=== PATIENT | female | born 1975 | race Caucasian/White ===

== ENCOUNTER 2017-02-17 10:35 | Day surgery (SDC) | payer BC ==
[2017-02-17] MEDS ORDERED: LACTATED RINGERS 1,000 ML IV ONE ×2 (11:01→13:45)
[2017-02-17] MEDS ORDERED: SCOPOLAMINE PATCH TOP ONE (11:13)
[2017-02-17] MEDS ORDERED: BUPIVACAINE 0.5% PF 30 ML VIAL SUBQ ONE (11:39)
[2017-02-17] MEDS ORDERED: LIDOCAINE-MPF 2% 5 ML VIAL IM ONE (12:20)
[2017-02-17] MEDS ORDERED: ONDANSETRON 4 MG/2 ML VIAL IVP ONE (12:20)
[2017-02-17] MEDS ORDERED: fentaNYL 100 MCG/2 ML VIAL IVP ONE (12:20)
[2017-02-17] MEDS ORDERED: PROPOFOL 200 MG/20 ML VIAL IVP ONE (12:20)
[2017-02-17] MEDS ORDERED: MIDAZOLAM 2 MG/2 ML VIAL IVP ONE (12:20)
[2017-02-17] MEDS ORDERED: ROCURONIUM 50 MG/5 ML VIAL IVP ONE (12:20)
[2017-02-17] MEDS ORDERED: KETOROLAC 30 MG/ML VIAL IVP ONE (12:20)
[2017-02-17] MEDS ORDERED: DEXAMETHASONE 4 MG/ML VIAL IVP ONE (12:20)
--- NOTE | 2017-02-17 13:32 | OPERATIVE REPORT ---
Operative Report - General Procedure Date: 02/17/17 Planned Procedure: Laparoscopic cholecystectomy Pre-Op Diagnosis: Bilaiary colic Procedure Performed: Laparoscopic cholecystectomy and umbilical herniorrhaphy Post Op Diagnosis: Same - Procedure Note Primary Surgeon: Puneet Diaz MD Anesthesia Provider: China Villarreal Anesthesia Technique: General ET tube, Local (30 mL 1/2% Marcaine) IV Fluids (mL): 900 Estimated Blood Loss (mL): 5 Complications: None. - Other Other Information/Narrative: OPERATIVE DESCRIPTION/REPORT: After verbal and written informed consent was obtained detailing the risks of infection, bleeding with all of its risks including transfusion, common bile duct injury, and the patient was brought to the operative suite and placed in the supine position on the operating room table. Monitoring devices were applied along with TEDs and pneumatic compressive stockings. Care was taken to avoid pressure points. Prophylactic antibiotics were given. An adequate level of general endotracheal anesthesia was established by China Villarreal. The abdomen was then prepped with ChloraPrep and draped in a sterile fashion. A "time in" then confirmed that the patient was identified with 3 identifiers (name, date and medical record number), the history and physical was in the chart, the signed consent confirming the procedure was in the chart, the patient was in the correct position, the aforementioned prophylactic measures were in place or given, we had the correct personnel and equipment to complete the procedure and that anesthesia, surgery and nursing were given an opportunity to express any concerns. The initial incision was at the umbilicus tracing the previous incision and dissection to a small umbilical hernia was completed using blunt dissection. The hernia was used to gain access into the abdomen. In this location, a 12 mm blunt tipped, balloon tipped port was placed and the balloon was inflated to keep the port in position. The abdominal cavity was insufflated with carbon dioxide to steady-state pressure of 15 mmHg. Three additional 5 mm ports were placed in standard location for laparoscopic cholecystectomy (subxiphoid and 2 right subcostal) under direct vision of the 30 degree laparoscope and without incident. The patient was then placed in reverse Trendelenburg position and was rotated slightly to their left. The gallbladder fundus was grasped with an atraumatic grasper. Multiple adhesions had to be taken down by blunt and sharp dissection along with electrocautery. Eventually, we identified the infundibulum, and this was then grasped and retracted inferior and laterally. Dissection was then begun in the angle of [place]. The cystic duct and (slightly medially and posteriorly) cystic artery were clearly identified. The critical view was obtained. Two clips proximally and one clip distally were used to control both the cystic duct and cystic artery. The clips were carefully placed to avoid occluding the juncture with the common bile duct. Both the cystic duct and then the cystic artery were then transected with laparoscopic tyshawn. The gallbladder was then removed from its fossa in a retrograde fashion using electrocautery. With the 30 degree 5 mm scope in the subxiphoid position, the gallbladder was placed in an EndoCatch bag to be extracted through the 12 mm port site. I irrigated the right upper quadrant with a liter of warm sterile saline, and the area was aspirated dry. I inspected the gallbladder fossa and there was no bleeding or bile leak. Clips on the cystic duct and cystic artery appeared to be secure. I briefly visually explored the abdomen. There was no other evidence of overt pathology. I injected the port sites at the peritoneal, fascial, and skin levels under direct vision with 0.5% Marcaine. All ports and the EndoCatch containing the gallbladder were removed. Following gallbladder removal, the remaining carbon dioxide was expelled from the abdomen. The fascia at the umbilicus was reapproximated using 2 [id number] 0 Vicryl sutures thus repairing the umbilical hernia. The skin at each port site was approximated using a subcuticular 4-0 Monocryl. The surgical count of instruments, needles and sponges was reported as correct twice. Mastisol, Steri -Strips and sterile surgical dressings were applied. The patient was then awakened from anesthesia, extubated, and having tolerated the procedure well, was transported to the recovery room. No complications were encountered. A "time out" confirmed the operation performed, the fluids given, the estimated blood loss and anesthesia, surgery and nursing were given an opportunity to express any concerns.
[2017-02-17] MEDS: fentaNYL 100 MCG/2 ML VIAL ONE ×2 (13:47→13:53)
[2017-02-17] MEDS ORDERED: HYDROcod/ACETAM 5/325 MG TABLET ONE (14:33)
[2017-02-17 14:57] VITALS: BP 124/78
== END 2017-02-17 10:36 | disposition home or self-care (01) ==
LOC: SDS 10:35
PROVIDERS: ATTEND Surgery
PROC: 0WQF0ZZ Repair Abdominal Wall, Open Approach (ICD-10-PCS; 2017-02-17)
PROC: 0FT44ZZ Resection of Gallbladder, Percutaneous Endoscopic Approach (ICD-10-PCS; principal; 2017-02-17 11:30)
DX: K80.20 Calculus of gallbladder without cholecystitis without obstruction (principal); K42.9 Umbilical hernia without obstruction or gangrene; J45.909 Unspecified asthma, uncomplicated; Z87.891 Personal history of nicotine dependence
CPT/HCPCS: 47562; 49585; A9270; J3490; J7120

== ENCOUNTER 2017-07-19 13:06 | Emergency (ER) | payer BC ==
[2017-07-19] MEDS ORDERED: SODIUM CHLORIDE 0.9% 1,000 ML IV ONE (14:18)
[2017-07-19] MEDS ORDERED: BENZONATATE 100 MG CAPSULE PO STA (14:19)
--- NOTE | 2017-07-19 14:25 | ED Physician Documentation ---
History of Present Illness - Stated complaint Stated Complaint: COUGH/DIARRHEA - Chief complaint Chief Complaint: Resp - History obtained from History obtained from: Patient - History of Present Illness Timing: How many days ago (9) Pain level max: 3 Pain level now: 3 Quality: aching, pain with cough. Cramping in abdomen. Improved by: rest Worsened by: exertion - Additonal information Additional information: Patient is a 42-year-old female who presents to the emergency department with rhinorrhea, congestion and coughing for the past 9 days. She states that she had some diarrhea then started taking a old Augmentin prescription and has had increasing diarrhea since that time. States she is still coughing. No fevers. Review of Systems Ten Systems: 10 systems reviewed and negative Constitutional: denies: Fever, Chills Nose: reports: Rhinorrhea / runny nose, Congestion Respiratory: reports: Cough GI: reports: Diarrhea (4-5 times per day.). denies: Vomiting : denies: Dysuria, Now EGA Skin: denies: Rash Musculoskeletal: denies: Neck pain, Back pain Neurologic: denies: Headache PD PAST MEDICAL HISTORY - Past Medical History Cardiovascular: None Respiratory: Asthma Endocrine/Autoimmune: None GI: GERD, Ulcers : None HEENT: Other Psych: Anxiety, Panic attacks, Claustrophobia Musculoskeletal: None Derm: None - Past Surgical History Past Surgical History: Yes Ortho: Arthroscopic surgery /RN L AND D: 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, Tubal ligation, Breast implants Derm: Other - Present Medications Home Medications: Ambulatory Orders Medication Instructions Recorded Confirmed Albuterol [Ventolin Hfa] 2 puffs INH Q4H PRN 04/19/13 02/17/17 Prochlorperazine [Compazine] 10 mg PO BID 02/13/17 02/17/17 Amoxicillin/Potassium Clav [Amox 1 each PO TID 07/19/17 07/19/17 Tr-K Clv 875-125 mg Tab] Benzonatate [Tessalon Perle] 100 - 200 mg PO TID PRN #30 capsule 07/19/17 Hydrocodone/Chlorphen P-Stirex 5 ml PO BID PRN #90 ml 07/19/17 [Hydrocodone-Chlorphen ER Susp] Ondansetron Odt [Zofran] 4 mg TL Q6H PRN #10 tablet 07/19/17 - Allergies Allergies/Adverse Reactions: Allergies Allergy/AdvReac Type Severity Reaction Status Date / Time Antihistamines - Alkylamine Allergy Confusion, Verified 07/19/17 13:19 dizziness, nausea doxycycline Allergy Hives Verified 07/19/17 13:19 hydromorphone [From Dilaudid] Allergy Anxiety, Verified 07/19/17 13:19 Agitation - Social History Does the pt smoke?: No Smoking Status: Never smoker Does the pt drink ETOH?: No Does the pt have substance abuse?: No - Immunizations Immunizations are current?: Yes - POLST Patient has POLST: No PD ED PE NORMAL - Vitals Vital signs reviewed: Yes - General General: Alert and oriented X 3, No acute distress, Well developed/nourished - HEENT HEENT: PERRL, Ears normal, Moist mucous membranes, Pharynx benign, Other (clear rhinorrhea) - Neck Neck: Supple, no meningeal sign - Cardiac Cardiac: RRR, Strong equal pulses - Respiratory Respiratory: No respiratory distress, Clear bilaterally - Abdomen Abdomen: Soft, Non tender, Non distended - Derm Derm: Warm and dry, No rash - Neuro Neuro: Alert and oriented X 3 - Psych Psych: Normal mood, Normal affect Results - Vitals Vitals: Vital Signs - 24 hr 07/19/17 07/19/17 07/19/17 13:16 15:32 17:00 Temperature 36.9 C 36.4 C L 36.6 C Heart Rate 97 108 H 72 Respiratory 18 20 16 Rate Blood Pressure 138/108 H 138/125 H 118/74 O2 Saturation 98 100 100 Oxygen O2 Source Room air - Labs Labs: Laboratory Tests 07/19/17 07/19/17 07/19/17 14:34 14:42 14:42 WBC 7.7 RBC 4.65 Hgb 14.4 Hct 42.5 MCV 91.4 MCH 31.1 H MCHC 34.0 RDW 13.0 Plt Count 289 MPV 8.8 Neut # 4.8 Lymph # 2.0 [place] # 0.6 Eos # 0.2 Baso # 0.1 Absolute Nucleated RBC 0.01 Nucleated RBC % 0.1 Sodium 133 L Potassium 4.2 Chloride 101 Carbon Dioxide 22 Anion Gap 10.0 BUN 12 Creatinine 0.8 Estimated GFR (MDRD) 79 L Glucose 94 Calcium 9.4 Total Bilirubin 0.8 AST 23 ALT 19 Alkaline Phosphatase 57 Total Protein 8.3 H Albumin 4.6 Globulin 3.7 Albumin/Globulin Ratio 1.2 Lipase 20 L Urine Color YELLOW Urine Clarity CLEAR Urine pH 5.5 Ur Specific [place] <=1.005 Urine Protein NEGATIVE Urine Glucose (UA) NEGATIVE Urine Ketones NEGATIVE Urine Occult Blood NEGATIVE Urine Nitrite NEGATIVE Urine Bilirubin NEGATIVE Urine Urobilinogen 0.2 (NORMAL) Ur Leukocyte Esterase NEGATIVE Ur Microscopic Review NOT INDICATED Urine Culture Comments NOT INDICATED - Rads (name of study) cxr Radiology: Prelim report reviewed, EMP read contemporaneously, See rad report ( No acute intrathoracic plain film abnormality. ) PD MEDICAL DECISION MAKING - ED course Complexity details: reviewed results, re-evaluated patient, considered differential, d/w patient ED course: Patient is a 42-year-old female who presents to the emergency department what appears to be a viral upper respiratory infection. No evidence of pneumonia on chest x-ray or clinically. She is well-appearing, nontoxic. Afebrile. No hypoxia. No respiratory distress. Abdomen is soft, nontender nondistended on serial exam. Unable to provide a stool sample despite several hours in the emergency department. Doubt C. difficile diarrhea. We will continue supportive care and follow-up with her doctor. Feels better after IV fluids. Patient counseled regarding signs and symptoms for which I believe and urgent re -evaluation would be necessary. Patient with good understanding of and agreement to plan and is comfortable going home at this time This document was made in part using voice recognition software. While efforts are made to proofread this document, sound alike and grammatical errors may occur. Departure - Departure Disposition: 01 Home, Self Care Clinical Impression: Viral URI Diarrhea Qualifiers: Diarrhea type: unspecified type Qualified Code(s): R19.7 - Diarrhea, unspecified Condition: Good Instructions: ED Viral Syndrome Follow-Up: Lashell Gandhi PA [Primary Care Provider] - Within 1 week Prescriptions: Benzonatate [Tessalon Perle] 100 - 200 mg PO TID PRN #30 capsule PRN Reason: Cough Hydrocodone/Chlorphen P-Stirex [Hydrocodone-Chlorphen ER Susp] 5 ml PO BID PRN # 90 ml PRN Reason: Cough Ondansetron Odt [Zofran] 4 mg TL Q6H PRN #10 tablet PRN Reason: Nausea / Vomiting Comments: Go home and rest. Drink plenty of fluids. Return if you worsen. Do not drink alcohol or drive while on narcotic pain medicine. Note that many narcotic pain relievers also contain tylenol/acetaminophen. Please ensure that your total dose of acetaminophen from all sources does not exceed 3 grams (3000mg) per day. You may constipated on this medication, take a stool softener such as "Colace" twice a day while you are on it. Also recommend a [id number] laxative such as senna or MiraLAX any day that you do not have a bowel movement. If you received narcotic pain medication in the emergency department, do not drive or operate machinery for the next 24 hours. Discharge Date/Time: 07/19/17 17:08
[2017-07-19 14:53] LABS: BASOPHILS # (AUTO) 0.1 10^3/uL (0.0-0.1); EOSINOPHILS # (AUTO) 0.2 10^3/uL (0.0-0.7); EOSINOPHILS % (AUTO) 3.2 %; HGB - HEMOGLOBIN 14.4 g/dL (12.0-16.0); LYMPHOCYTES % (AUTO) 26.5 %; MEAN CORPUSCULAR HEMOGLOBIN 31.1 pg (27.0-31.0); MEAN CORPUSCULAR VOLUME 91.4 fL (81.0-99.0); MEAN PLATELET VOLUME 8.8 fL (7.9-10.8); MONOCYTES # (AUTO) 0.6 10^3/uL (0.0-1.0); MONOCYTES % (AUTO) 7.3 %; NEUTROPHILS # (AUTO) 4.8 10^3/uL (1.5-6.6); PLT - PLATELET COUNT 289 10^3/uL (130-450); RED BLOOD COUNT 4.65 10^6/uL (4.20-5.40); WHITE BLOOD COUNT 7.7 x10^3/uL (4.8-10.8)
[2017-07-19 14:54] LABS: BILIRUBIN,URINE NEGATIVE (NEGATIVE); CLARITY,URINE CLEAR (CLEAR); GLUCOSE, URINE (UA) NEGATIVE (NEGATIVE); KETONES,URINE (UA) NEGATIVE (NEGATIVE); LEUKOCYTE ESTERASE, URINE NEGATIVE (NEGATIVE); NITRITE,URINE NEGATIVE (NEGATIVE); OCCULT BLOOD,URINE NEGATIVE (NEGATIVE); PH,URINE 5.5 PH (5.0-7.5); PROTEIN,URINE NEGATIVE (NEGATIVE); UROBILINOGEN,URINE 0.2 (NORMAL) E.U./dL (NORMAL)
[2017-07-19 15:04] LABS: ALBUMIN 4.6 g/dL (3.2-5.5); ALBUMIN/GLOBULIN RATIO 1.2 (1.0-2.2); BILIRUBIN,TOTAL 0.8 mg/dL (0.2-1.0); CALCIUM 9.4 mg/dL (8.5-10.3); CREATININE 0.8 mg/dL (0.4-1.0); TOTAL PROTEIN 8.3 g/dL (6.7-8.2)
--- NOTE | 2017-07-19 15:36 | XRAY Report ---
EXAM: CHEST RADIOGRAPHY EXAM DATE: 07/19/2017 03:10 PM. CLINICAL HISTORY: Cough. COMPARISON: None. TECHNIQUE: 2 views. FINDINGS: Lungs/Pleura: No focal opacities evident. No pleural effusion. No pneumothorax. Normal volumes. Mediastinum: Heart and mediastinal contours are unremarkable. Other: None. IMPRESSION: No acute intrathoracic plain film abnormality. [facility] Referring Provider Line: [phone] SITE ID: [id number]
[2017-07-19] MEDS ORDERED: HYDROcod/ACETAM 5/325 MG TABLET PO STA (15:45)
[2017-07-19] MEDS ORDERED: DEXAMETHASONE 10 MG/ML VIAL IVP STA (16:54)
[2017-07-19 17:01] VITALS: BP 118/74
--- NOTE | 2017-07-21 05:49 | ED Physician Documentation ---
ED Addendum - Addendum Addendum: 07/21/17 05:30 Patient called ED morning of 07/20/17 regarding prescribed medication. I spoke with her and she says that she has had hives and she describes feeling jittery and jumpy since taking the hydrocodone/chlorpheniramine; she says this is typical for her with antihistamines. She says her chief concern is controlling the cough, and that robitussin with codeine has worked well for her in the past. I wrote this rx for her and her subsequently picked it up. She also is having nausea and asks for compazine, as this has worked on her nausea in the past. I also wrote rx for Compazine
== END 2017-07-19 17:08 | disposition home or self-care (01) ==
LOC: ED 13:06
DX: J06.9 Acute upper respiratory infection, unspecified (principal); B97.89 Other viral agents as the cause of diseases classified elsewhere; R19.7 Diarrhea, unspecified; J45.909 Unspecified asthma, uncomplicated; K21.9 Gastro-esophageal reflux disease without esophagitis; Z87.11 Personal history of peptic ulcer disease
CPT/HCPCS: 36415; 71046; 80053; 81003; 83690; 85025; 96361; 96374; 99283; A9270; 81001; 87086

== ENCOUNTER 2018-09-27 20:52 | Emergency (ER) | payer BC ==
[2018-09-27 21:13] LABS: BASOPHILS # (AUTO) 0.1 10^3/uL (0.0-0.1); BASOPHILS % (AUTO) 0.7 %; EOSINOPHILS # (AUTO) 0.2 10^3/uL (0.0-0.7); EOSINOPHILS % (AUTO) 1.5 %; HGB - HEMOGLOBIN 14.1 g/dL (12.0-16.0); LYMPHOCYTES # (AUTO) 2.5 10^3/uL (1.5-3.5); LYMPHOCYTES % (AUTO) 23.9 %; MEAN CORPUSCULAR HEMOGLOBIN 31.7 pg (27.0-31.0); MEAN CORPUSCULAR HGB CONC 33.9 g/dL (32.0-36.0); MEAN CORPUSCULAR VOLUME 93.5 fL (81.0-99.0); MEAN PLATELET VOLUME 10.7 fL (7.9-10.8); MONOCYTES # (AUTO) 0.9 10^3/uL (0.0-1.0); MONOCYTES % (AUTO) 8.4 %; NEUTROPHILS # (AUTO) 6.8 10^3/uL (1.5-6.6); NEUTROPHILS % (AUTO) 64.9 %; PLT - PLATELET COUNT 296 10^3/uL (130-450); RED BLOOD COUNT 4.45 10^6/uL (4.20-5.40); RED CELL DISTRIBUTION WIDTH 13.6 % (12.0-15.0); WHITE BLOOD COUNT 10.4 x10^3/uL (4.8-10.8)
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
[2018-09-27 21:27] LABS: ALBUMIN 4.5 g/dL (3.2-5.5); ALBUMIN/GLOBULIN RATIO 1.2 (1.0-2.2); BILIRUBIN,TOTAL 0.7 mg/dL (0.2-1.0); CALCIUM 9.5 mg/dL (8.5-10.3); CREATININE 0.8 mg/dL (0.4-1.0); TOTAL PROTEIN 8.4 g/dL (6.7-8.2)
[2018-09-27 21:41] LABS: HCG UR QUAL NEGATIVE
[2018-09-27 22:10] LABS: MUDS CUTOFF CONCENTRATIONS CUTOFF CONC BELOW:
--- NOTE | 2018-09-27 22:30 | CT Report ---
Reason: LOPES, weakness Procedure Date: 09/27/2018 Accession Number: [id number] / [id number] Procedure: CT - HEAD WO CPT Code: FULL RESULT: EXAM: CT HEAD EXAM DATE: 09/27/2018 10:17 PM. CLINICAL HISTORY: LOPES, weakness. COMPARISON: HEAD W/O 04/19/2013 9:48 PM. TECHNIQUE: Multiaxial CT images were obtained from the foramen magnum to the vertex. Reformats: Sagittal and coronal. IV contrast: None. In accordance with CT protocol optimization, one or more of the following dose reduction techniques were utilized for this exam: automated exposure control, adjustment of mA and/or KV based on patient size, or use of iterative reconstructive technique. FINDINGS: There is mild streak artifact from metallic earrings on the left. Parenchyma: No intraparenchymal hemorrhage. No evidence of mass, midline shift, or CT findings of infarction. Lewis-white differentiation is distinct. Extraaxial Spaces: Normal for age. No subdural or epidural collections identified. Ventricles: Normal in size and position, stable compared to the prior examination. Sinuses and Orbits: Imaged paranasal sinuses, orbits, and mastoids show no significant abnormality. Bones: No evidence of fracture or calvarial defect. Other: None. IMPRESSION: 1. No evidence of acute intracranial pathology. No significant interval change. [facility]
[2018-09-27 22:48] LABS: AMPHETAMINE SCREEN,URINE NEGATIVE (NEGATIVE); BENZODIAZEPINES SCREEN, URINE NEGATIVE (NEGATIVE); COCAINE SCREEN URINE NEGATIVE (NEGATIVE); METHADONE SCREEN, URINE NEGATIVE (NEGATIVE); METHAMPHETAMINES SCREEN, URINE NEGATIVE (NEGATIVE); OPIATE SCREEN, URINE NEGATIVE (NEGATIVE); OXYCODONE SCREEN, URINE NEGATIVE (NEGATIVE); PROPOXYPHENE SCREEN, URINE NEGATIVE (NEGATIVE); TRICYCLIC ANTIDEPRESSANT,URINE NEGATIVE (NEGATIVE)
[2018-09-27 23:09] VITALS: BP 106/68
== END 2018-09-27 23:40 | disposition home or self-care (01) ==
LOC: ED 20:52
DX: R41.82 Altered mental status, unspecified (principal)
CPT/HCPCS: 36415; 70450; 80053; 80306; 81025; 83690; 84443; 85025; 85651; 93005; 99283; 99284

== ENCOUNTER 2019-04-03 17:37 | Emergency (ER) | payer BC ==
[2019-04-03] MEDS ORDERED: SODIUM CHLORIDE 0.9% 1,000 ML IV ONE ×2 (18:02)
[2019-04-03] MEDS ORDERED: KETOROLAC 30 MG/ML VIAL IVP STA (18:03)
--- NOTE | 2019-04-03 18:07 | ED Physician Documentation ---
PD HPI ABD PAIN - Stated complaint Stated Complaint: FEMALE , NAUSEA - Chief complaint Chief Complaint: Abd Pain - History obtained from History obtained from: Patient - History of Present Illness Timing - onset: How many days ago (4) Timing - duration: Days (4) Timing - details: Gradual onset Pain level max: 8 Pain level now: 8 Quality: Aching, Pain Location: Periumbilical, RLQ, Suprapubic, LLQ Radiation: Left flank, Right flank Improved by: Other (took CBD oil without relief) Worsened by: Moving, Palpation Associated symptoms: Nausea, Vaginal bleeding (light spotting). No: Fever, Vomiting, Hematemesis, Diarrhea, Constipation, Melena, Hematochezia, Dysuria, Vaginal dc Similar symptoms before: Has not had sx before Recently seen: Not recently seen - Additional information Additional information: states had an endometrial ablation 8 years ago. Review of Systems Constitutional: denies: Fever, Chills Throat: denies: Sore throat Cardiac: denies: Chest pain / pressure Respiratory: denies: Cough GI: denies: Vomiting, Diarrhea, Hematemesis, Bloody / black stool : denies: Dysuria, Frequency, Hesitancy Skin: denies: Rash Musculoskeletal: denies: Neck pain, Back pain Neurologic: denies: Headache PD PAST MEDICAL HISTORY - Past Medical History Cardiovascular: None Respiratory: Asthma Endocrine/Autoimmune: None GI: GERD, Ulcers : None HEENT: Other Psych: Anxiety, Panic attacks, Claustrophobia Musculoskeletal: None Derm: None - Past Surgical History Past Surgical History: Yes General: Cholecystectomy Ortho: Arthroscopic surgery /[employer]: 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, Tubal ligation, Breast implants Derm: Other - Present Medications Home Medications: Ambulatory Orders Medication Instructions Recorded Confirmed Hydrocodone/Acetaminophen 1 - 2 each PO Q6H PRN #10 tablet 04/03/19 [Hydrocodon-Acetaminophen 5-325] Ibuprofen [Motrin] 800 mg PO Q8H PRN #30 tablet 04/03/19 - Allergies Allergies/Adverse Reactions: Allergies Allergy/AdvReac Type Severity Reaction Status Date / Time Antihistamines - Alkylamine Allergy Confusion, Verified 04/03/19 17:47 dizziness, nausea doxycycline Allergy Hives Verified 04/03/19 17:47 hydromorphone [From Dilaudid] Allergy Anxiety, Verified 04/03/19 17:47 Agitation - Social History Does the pt smoke?: No Smoking Status: Never smoker Does the pt drink ETOH?: No Does the pt have substance abuse?: No - Immunizations Immunizations are current?: Yes - POLST Patient has POLST: No PD ED PE NORMAL - Vitals Vital signs reviewed: Yes - General General: Alert and oriented X 3, No acute distress - HEENT HEENT: Moist mucous membranes - Neck Neck: Supple, no meningeal sign - Cardiac Cardiac: RRR - Respiratory Respiratory: No respiratory distress, Clear bilaterally - Abdomen Abdomen: Soft, Other (mild diffuse TTP, no peritoneal signs.) - Female Female : Pt declined - Derm Derm: Warm and dry, No rash - Extremities Extremities: No edema, No calf tenderness / cord - Neuro Neuro: Alert and oriented X 3 Results - Vitals Vitals: Vital Signs - 24 hr 04/03/19 04/03/19 04/03/19 17:47 18:38 20:31 Temperature 36.6 C 37.2 C 37.2 C Heart Rate 84 76 71 Respiratory 15 16 16 Rate Blood Pressure 136/88 H 130/81 H 129/80 O2 Saturation 99 100 100 Oxygen O2 Source Room air - Labs Labs: Laboratory Tests 04/03/19 04/03/19 04/03/19 18:00 18:00 18:00 WBC 8.1 RBC 4.45 Hgb 14.2 Hct 42.0 MCV 94.4 MCH 31.9 H MCHC 33.8 RDW 13.6 Plt Count 298 MPV 10.5 Neut # (Auto) 4.5 Lymph # (Auto) 2.5 [place] # (Auto) 0.7 Eos # (Auto) 0.3 Baso # (Auto) 0.1 Absolute Nucleated RBC 0.00 Nucleated RBC % 0.0 Sodium 136 Potassium 3.5 Chloride 101 Carbon Dioxide 25 Anion Gap 10.0 BUN 18 Creatinine 0.8 Estimated GFR (MDRD) 78 L Glucose 100 Calcium 9.2 Total Bilirubin 1.0 AST 24 ALT 31 Alkaline Phosphatase 74 Total Protein 7.9 Albumin 4.5 Globulin 3.4 Albumin/Globulin Ratio 1.3 Lipase 33 Urine Color YELLOW Urine Clarity CLEAR Urine pH 5.5 Ur Specific Seth 1.015 Urine Protein NEGATIVE Urine Glucose (UA) NEGATIVE Urine Ketones NEGATIVE Urine Occult Blood SMALL H Urine Nitrite NEGATIVE Urine Bilirubin NEGATIVE Urine Urobilinogen 0.2 (NORMAL) Ur Leukocyte Esterase NEGATIVE Urine RBC 0-5 Urine WBC 0-3 Ur Squamous Epith Cells FEW Squamous Urine Bacteria None Seen Ur Microscopic Review INDICATED Urine Culture Comments NOT INDICATED Urine HCG, Qual NEGATIVE - Rads (name of study) pelvic US Radiology: Prelim report reviewed, EMP read contemporaneously, See rad report (1. Multiple intramural uterine fibroids noted. 2. Heterogeneous thickened end ometrium. No focal mass or polyp. 3. Simple right ovarian follicle. Otherwise, both ovaries and adnexa are normal. 4. Arterial and venous blood flow are present to the ovaries bilaterally. ) CT abd/pelvis Radiology: Prelim report reviewed, EMP read contemporaneously, See rad report (1. No acute findings to explain patient's symptoms. 2. There are two 1 cm low-attenuation lesions within the central uterus which are adjacent to versus within the endometrium and are indeterminant. Please see pelvic ultrasound of the same date for further evaluation. 3. Status post bilateral tubal ligation. 4. Cholecystectomy. ) PD MEDICAL DECISION MAKING - ED course Complexity details: reviewed results, re-evaluated patient, considered differential, d/w patient, d/w family ED course: Patient with dysfunctional uterine bleeding and uterine fibroids. Pain well controlled. We will have her follow-up with her doctor for further care. No significant lab abnormalities. Patient counseled regarding signs and symptoms for which I believe and urgent re-evaluation would be necessary. Patient with good understanding of and agreement to plan and is comfortable going home at this time This document was made in part using voice recognition software. While efforts are made to proofread this document, sound alike and grammatical errors may occur. Departure - Departure Disposition: 01 Home, Self Care Clinical Impression: Dysfunctional uterine bleeding Uterine fibroid Qualifiers: Uterine leiomyoma location: unspecified location Qualified Code(s): D25.9 - Leiomyoma of uterus, unspecified Condition: Good Instructions: ED Cramping Menstrual, ED Fibroids Follow-Up: Lashell Gandhi PA [Primary Care Provider] - Within 1 week Prescriptions: Hydrocodone/Acetaminophen [Hydrocodon-Acetaminophen 5-325] 1 - 2 each PO Q6H PRN #10 tablet PRN Reason: pain Ibuprofen [Motrin] 800 mg PO Q8H PRN #30 tablet PRN Reason: PAIN &/OR FEVER Comments: Return if you worsen. You have fibroids on your ultrasound. these can cause pain and bleeding. Follow up with your doctor for further care. Do not drink alcohol or drive while on narcotic pain medicine. Note that many narcotic pain relievers also contain tylenol/acetaminophen. Please ensure that your total dose of acetaminophen from all sources does not exceed 3 grams (3000mg) per day. You may constipated on this medication, take a stool softener such as "Colace" twice a day while you are on it. Also recommend a [id number] laxative such as senna or MiraLAX any day that you do not have a bowel movement. If you received narcotic pain medication in the emergency department, do not drive or operate machinery for the next 24 hours.
[2019-04-03] MEDS ORDERED: IOVERSOL 320 100 ML VIAL IVP ONE ×2 (18:12→20:12)
[2019-04-03] MEDS ORDERED: ONDANSETRON 4 MG/2 ML VIAL IVP STA (18:12)
[2019-04-03 18:22] LABS: BASOPHILS # (AUTO) 0.1 10^3/uL (0.0-0.1); BASOPHILS % (AUTO) 0.7 %; EOSINOPHILS # (AUTO) 0.3 10^3/uL (0.0-0.7); EOSINOPHILS % (AUTO) 3.1 %; HGB - HEMOGLOBIN 14.2 g/dL (12.0-16.0); LYMPHOCYTES # (AUTO) 2.5 10^3/uL (1.5-3.5); LYMPHOCYTES % (AUTO) 30.5 %; MEAN CORPUSCULAR HEMOGLOBIN 31.9 pg (27.0-31.0); MEAN CORPUSCULAR HGB CONC 33.8 g/dL (32.0-36.0); MEAN CORPUSCULAR VOLUME 94.4 fL (81.0-99.0); MEAN PLATELET VOLUME 10.5 fL (7.9-10.8); MONOCYTES # (AUTO) 0.7 10^3/uL (0.0-1.0); MONOCYTES % (AUTO) 9.1 %; NEUTROPHILS # (AUTO) 4.5 10^3/uL (1.5-6.6); NEUTROPHILS % (AUTO) 56.2 %; PLT - PLATELET COUNT 298 10^3/uL (130-450); RED BLOOD COUNT 4.45 10^6/uL (4.20-5.40); RED CELL DISTRIBUTION WIDTH 13.6 % (12.0-15.0); WHITE BLOOD COUNT 8.1 x10^3/uL (4.8-10.8)
[2019-04-03 18:26] LABS: BILIRUBIN,URINE NEGATIVE (NEGATIVE); GLUCOSE, URINE (UA) NEGATIVE (NEGATIVE); KETONES,URINE (UA) NEGATIVE (NEGATIVE); LEUKOCYTE ESTERASE, URINE NEGATIVE (NEGATIVE); NITRITE,URINE NEGATIVE (NEGATIVE); OCCULT BLOOD,URINE SMALL (NEGATIVE); PH,URINE 5.5 PH (5.0-7.5); PROTEIN,URINE NEGATIVE (NEGATIVE); UROBILINOGEN,URINE 0.2 (NORMAL) E.U./dL (NORMAL)
[2019-04-03 18:29] LABS: CLARITY,URINE CLEAR (CLEAR); HCG UR QUAL NEGATIVE
[2019-04-03 18:35] LABS: ALBUMIN 4.5 g/dL (3.2-5.5); ALBUMIN/GLOBULIN RATIO 1.3 (1.0-2.2); CALCIUM 9.2 mg/dL (8.5-10.3); CREATININE 0.8 mg/dL (0.4-1.0); TOTAL PROTEIN 7.9 g/dL (6.7-8.2)
[2019-04-03 18:48] LABS: BACTERIA,URINE None Seen /HPF (None Seen); RBC,URINE 0-5 /HPF (0-5); SQUAMOUS EPITHELIAL CELL,UR FEW Squamous (<= Few)
[2019-04-03 20:32] VITALS: BP 129/80
--- NOTE | 2019-04-03 20:46 | Ultrasound Report ---
Reason: pelvic pain, diffuse, vag bleed Procedure Date: 04/03/2019 Accession Number: [id number] / [id number] Procedure: US - Pelvic w/Transvag+Doppler Comp CPT Code: Final Report FULL RESULT: EXAM: PELVIC ULTRASOUND WITH DOPPLERS CLINICAL HISTORY: Pelvic pain, diffuse, vaginal bleed. COMPARISON: ABDOMEN/PELVIS W/O 08/06/2013 1:26 PM TECHNIQUE: Realtime transabdominal imaging performed to identify the uterus and adnexa and as an overview of other pelvic structures, followed by transvaginal imaging for better assessment of the endometrium and adnexa, with static image documentation. Color flow imaging and Doppler spectral analysis was performed to evaluate blood flow to the ovaries given pelvic pain and clinical concern for ovarian torsion. FINDINGS: Uterus: 9.2 x 4.6 x 6.1 cm, volume 135.5 cc. Anteverted position. Heterogeneous myometrium with multiple fibroids noted. Masses: 1. 1 x 0.7 x 0.9 cm echogenic posterior left intramural fibroid. 2. 0.5 x 0.5 x 0.8 cm posterior left uterine intramural echogenic fibroid. Internal vascularity is noted. 3. Right fundal heterogeneous intramural 5.2 x 2.9 x 4.8 cm bilobed fibroid or two adjacent fibroids. Internal vascularity noted. Endometrium: 7.3 mm. Heterogenous mildly thickened endometrium. Poorly defined borders. Cervix: Unremarkable. Right Ovary: 3.2 x 1.7 x 1.9 cm, volume 5.9 cc. Normal echotexture. Arterial and venous blood flow are present. PSV 6.6 cm/sec. RI 0.61. Adnexa is notable for an anechoic 1 x 0.8 cm cyst. Left Ovary: 1.9 x 1.6 x 1.6 cm, volume 2.5 cc. Normal echotexture. Arterial and venous blood flow are present. PSV 28.5 cm/sec. RI 0.69. Adnexa unremarkable. Free Fluid: None. Other: None. IMPRESSION: 1. Multiple intramural uterine fibroids noted. 2. Heterogeneous thickened endometrium. No focal mass or polyp. 3. Simple right ovarian follicle. Otherwise, both ovaries and adnexa are normal. 4. Arterial and venous blood flow are present to the ovaries bilaterally. RADIA
[2019-04-03] MEDS ORDERED: HYDROcod/ACETAM 5/325 MG TABLET PO STA (20:58)
--- NOTE | 2019-04-03 21:10 | CT Report ---
Reason: diffuse abd pain Procedure Date: 04/03/2019 Accession Number: [id number] / [id number] Procedure: CT - Abdomen/Pelvis W CPT Code: Final Report FULL RESULT: EXAM: CT ABDOMEN AND PELVIS EXAM DATE: 04/03/2019 07:56 PM. CLINICAL HISTORY: Diffuse abdominal pain. Lower abdominal pain and vaginal bleeding. COMPARISONS: ABDOMEN/PELVIS W/O 08/06/2013 1:26 PM PEL NON OB W/TV DOP 04/03/2019 6:59 PM. TECHNIQUE: Routine helical CT imaging was performed through the abdomen and pelvis. IV contrast: 90 cc Optiray 320. Enteric contrast: No. Reconstructions: Coronal and sagittal. In accordance with CT protocol optimization, one or more of the following dose reduction techniques were utilized for this exam: automated exposure control, adjustment of mA and/or KV based on patient size, or use of iterative reconstructive technique. FINDINGS: Imaged chest: Status post breast augmentation, partially imaged. Liver: Unremarkable. Gallbladder: Cholecystectomy. Biliary: Unremarkable. Pancreas: Fatty atrophy. Spleen: Unremarkable. Adrenal glands: Unremarkable. Kidneys: Unremarkable. Urinary bladder: Completely decompressed and not evaluated. Reproductive organs: The uterus is normal in size. Status post bilateral tubal ligation. There are two 1 cm low-attenuation lesions within the central uterus which are adjacent to versus within the endometrium and are indeterminant. Please see pelvic ultrasound of the same date for further evaluation. Bowel: Unremarkable. Stomach: Unremarkable. Appendix: The appendix is not reliably identified, however, there are no secondary signs of acute appendicitis. Miscellaneous: No free fluid. No extraluminal gas. Aorta: No significant aortic atherosclerosis. Normal in caliber. Lymph nodes: No pathologically enlarged lymph nodes identified. Bones: No acute fracture. No suspicious osseous lesions. Sidewalls: Unremarkable. IMPRESSION: 1. No acute findings to explain patient's symptoms. 2. There are two 1 cm low-attenuation lesions within the central uterus which are adjacent to versus within the endometrium and are indeterminant. Please see pelvic ultrasound of the same date for further evaluation. 3. Status post bilateral tubal ligation. 4. Cholecystectomy. RADIA
== END 2019-04-03 21:20 | disposition home or self-care (01) ==
LOC: ED 17:37
DX: N93.8 Other specified abnormal uterine and vaginal bleeding (principal); D25.9 Leiomyoma of uterus, unspecified
CPT/HCPCS: 36415; 74177; 76830; 76856; 80053; 81001; 81025; 83690; 85025; 93975; 96361; 96374; 99284; A9270; Q9967; 81003; 87086

== ENCOUNTER 2020-04-20 14:51 | Outpatient (CLI) | payer BC | END 2020-04-20 14:52 | disposition home or self-care (01) | LOC: COV 14:51 | PROVIDERS: ATTEND Family Medicine | DX: R06.02 Shortness of breath (principal); R07.0 Pain in throat; R09.81 Nasal congestion; J34.89 Other specified disorders of nose and nasal sinuses; Z20.822 Contact with and (suspected) exposure to COVID-19 ==

== ENCOUNTER 2020-05-26 07:00 | Outpatient (CLI) | payer BC ==
--- NOTE | 2020-05-28 08:14 | XRAY Report ---
PROCEDURE: Foot 3 View LT INDICATIONS: LEFT FOOT PAIN TECHNIQUE: 3 views of the foot were acquired. COMPARISON: None FINDINGS: Bones: No fractures or dislocations. No suspicious bony lesions. Soft tissues: No tibiotalar joint effusion. Achilles tendon appears normal. IMPRESSION: Intact left foot. Reviewed by: Anette Segovia MD on 05/28/2020 8:13 AM [facility] Approved by: Anette Segovia MD on 05/28/2020 8:13 AM [facility] Station ID: [id number]
== END 2020-05-26 23:59 | disposition home or self-care (01) ==
LOC: DI.S 07:00
PROVIDERS: ATTEND Emergency Medicine
DX: S90.32XA Contusion of left foot, initial encounter (principal)

== ENCOUNTER 2020-06-14 16:27 | Outpatient (CLI) | payer BC ==
--- NOTE | 2020-06-14 16:28 | XRAY Report ---
PROCEDURE: Ankle 3 View LT INDICATIONS: LEFT FOOT AND ANKLE PAIN TECHNIQUE: 3 views of the ankle were acquired. COMPARISON: None FINDINGS: Bones: No fractures or dislocations. Ankle mortise is normally aligned. No suspicious bony lesions . Soft tissues: No tibiotalar joint effusion. Achilles tendon appears normal. IMPRESSION: No fracture. No osseous lesion. If there are persistent symptoms or continued clinical concern for pa thology, then repeat plain film radiographs (7-10 days) or advanced imaging (CT, MR, bone scan) shoul d be considered for further evaluation. Reviewed by: Tamika Hassan MD, PhD on 06/14/2020 4:27 PM PDT Approved by: Tamika Hassan MD, PhD on 06/14/2020 4:27 PM PDT Station ID: [id number]
--- NOTE | 2020-06-14 16:31 | XRAY Report ---
PROCEDURE: Foot 3 View LT INDICATIONS: LEFT FOOT AND ANKLE PAIN TECHNIQUE: 3 views of the foot were acquired. COMPARISON: 05/26/2020 FINDINGS: Bones: No fractures or dislocations. No suspicious bony lesions. Soft tissues: No tibiotalar joint effusion. Achilles tendon appears normal. IMPRESSION: No fracture. No osseous lesion. If there are persistent symptoms or continued clinical concern for pa thology, then advanced imaging (CT, MR, bone scan) should be considered for further evaluation. Reviewed by: Tamika Hassan MD, PhD on 06/14/2020 4:29 PM PDT Approved by: Tamika Hassan MD, PhD on 06/14/2020 4:29 PM PDT Station ID: [id number]
== END 2020-06-14 23:59 | disposition home or self-care (01) ==
LOC: DI.S 16:27
PROVIDERS: ATTEND Physician Assistant Medical
DX: M25.572 Pain in left ankle and joints of left foot (principal)

== ENCOUNTER 2021-05-08 11:30 | Outpatient (CLI) | payer BC | END 2021-05-08 23:59 | disposition home or self-care (01) | LOC: LAB.S 11:30 | PROVIDERS: ATTEND Registered Nurse | DX: R10.9 Unspecified abdominal pain (principal) | CPT/HCPCS: 81599; 83993; 87045; 87177; 87209; 87329; 87427; 87449 ==

== ENCOUNTER 2021-06-19 14:22 | Emergency (ER) | payer BC ==
--- OUTSIDE RECORDS SUMMARY | 2021-06-19 14:48 | EXTERNAL MEDICAL SUMMARY RPT | Continuity of Care Document ---
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 Encounters No information. Medications date description facility 20210507 fluconazole [facility] 20210507 albendazole [facility] 20210507 fluconazole [facility] 20210507 albendazole [facility] 20210507 fluconazole [facility] 20210507 albendazole [facility] 20210507 fluconazole [facility] 20210507 albendazole [facility] 20210507 fluconazole [facility] 20210507 albendazole [facility] 20210507 fluconazole [facility] 20210507 albendazole [facility] Problems date description facility 20210507 Dysuria [facility] 20210507 Total score? [facility] 20210507 Abdominal pain, unspecified site [facility] 20210507 Abdominal pain [facility] 20210507 Calprotectin, fecal [facility] 20210507 Tobacco smoking status NHIS [facility] [place] 20210507 Former smoker [facility] [place] 20210507 Unspecified abdominal pain [facility] [place] 20210507 Tobacco use and exposure [facility] [place] [id number] Stool Culture [facility] [place] 20210507 Giardia Lamblia Antigen Detection by W [facility] [place] 20210507 Details of drug misuse behavior [facility] [place] 20210507 STOOL FOR O&P [facility] [place] 20210507 Alcohol use [facility] Procedures date description facility 20210507 POC URINALYSIS DIP [facility] [id number] POC URINALYSIS DIP [facility] [id number] POC URINALYSIS DIP [facility] [id number] POC URINALYSIS DIP [facility] [id number] POC URINALYSIS DIP [facility] [id number] POC URINALYSIS DIP [facility] Results test status date ordered by attending specimen lópez e Urobilinogen_Presence_ unknown [id number] unknown unknown unknown in_Urine_by_Test_strip Specific_gravity_of_Ur unknown [id number] unknown unknown unknown ine_by_Test_strip pH_of_Urine_by_Test_st unknown 15112558 unknown unknown unknown rip Nitrite_Presence_in_Ur unknown 41386296 unknown unknown unknown ine_by_Test_strip Leukocyte_esterase_Pre unknown 79000252 unknown unknown unknown sence_in_Urine_by_Test_ strip Ketones_Mass_volume_in unknown 68226620 unknown unknown unknown _Urine_by_Test_strip Glucose_Mass_volume_in unknown 39573729 unknown unknown unknown _Urine_by_Test_strip Color_of_Urine unknown 73330060 unknown unknown unknown Bilirubin.total_Presen unknown 49781650 unknown unknown unknown ce_in_Urine_by_Test_str ip Appearance_of_Urine unknown 74226938 unknown unknown unk nown culture_status unknown 22910752 unknown unknown unknown urinalysis_routine unknown 76028794 unknown unknown unkn own appearance_urine unknown 00392754 unknown unknown unknow n leukocyte_esterase_uri unknown 12247814 unknown unknown unknown ne_by_dipstick urobilinogen_urine_sem unknown 82362707 unknown unknown unknown iquantitative_dipstick_ specific_gravity_urine unknown 41582755 unknown unknown unknown pH_urine_semiquantitat unknown 59254346 unknown unknown unknown eric nitrite_urine_semiquan unknown 25230668 unknown unknown unknown titative ketones_urine_by_test_ unknown 10132883 unknown unknown unknown strip bilirubin_urine unknown 97577160 unknown unknown unknown urine_color unknown 45645976 unknown unknown unknown human_chorionic_gonado unknown 76942637 unknown unknown unknown tropin_urine_qualitativ e_urine_pregnancy_test_ Choriogonadotropin_pre unknown 99359080 unknown unknown unknown gnancy_test_Presence_in _Urine Albumin_Presence_in_Ur unknown 19693093 unknown unknown unknown ine RBC_urine_dipstick unknown 91478704 unknown unknown unkn own Erythrocytes_area_in_U unknown 31429885 unknown unknown unknown rine_sediment_by_Micros copy_high_power_field glucose_urine_semiquan unknown 28810801 unknown unknown unknown titative protein_urine_semiquan unknown 07456708 unknown unknown unknown titative_dipstick_ Urine_HCG_QC_Result_CL unknown 60153111 unknown unknown unknown IA_Waived_ Urine_HCG_Exp_Date_CLI unknown 92800585 unknown unknown unknown A_Waived_ Urine_HCG_Lot_Number_C unknown 98955392 unknown unknown unknown LIA_Waived_ DIPSTICK_URINE_STRIP_L unknown 41609773 unknown unknown unknown OT_NUMBER Urobilinogen_Presence_ unknown 76560891 unknown unknown unknown in_Urine_by_Test_strip Specific_gravity_of_Ur unknown 61104621 unknown unknown unknown ine_by_Test_strip pH_of_Urine_by_Test_st unknown 94307041 unknown unknown unknown rip Nitrite_Presence_in_Ur unknown 01837418 unknown unknown unknown ine_by_Test_strip Leukocyte_esterase_Pre unknown 59425052 unknown unknown unknown sence_in_Urine_by_Test_ strip Ketones_Mass_volume_in unknown 72370087 unknown unknown unknown _Urine_by_Test_strip Glucose_Mass_volume_in unknown 67253367 unknown unknown unknown _Urine_by_Test_strip Color_of_Urine unknown 06231644 unknown unknown unknown Bilirubin.total_Presen unknown 25205804 unknown unknown unknown ce_in_Urine_by_Test_str ip Appearance_of_Urine unknown 46737422 unknown unknown unk nown culture_status unknown 74535774 unknown unknown unknown urinalysis_routine unknown 95613858 unknown unknown unkn own appearance_urine unknown 05645783 unknown unknown unknow n leukocyte_esterase_uri unknown 73650774 unknown unknown unknown ne_by_dipstick urobilinogen_urine_sem unknown 98804193 unknown unknown unknown iquantitative_dipstick_ specific_gravity_urine unknown 94656464 unknown unknown unknown pH_urine_semiquantitat unknown 62418324 unknown unknown unknown eric nitrite_urine_semiquan unknown 84368177 unknown unknown unknown titative ketones_urine_by_test_ unknown 92229540 unknown unknown unknown strip bilirubin_urine unknown 45618645 unknown unknown unknown urine_color unknown 49050559 unknown unknown unknown human_chorionic_gonado unknown 94527619 unknown unknown unknown tropin_urine_qualitativ e_urine_pregnancy_test_ Choriogonadotropin_pre unknown 08544830 unknown unknown unknown gnancy_test_Presence_in _Urine Albumin_Presence_in_Ur unknown 23864911 unknown unknown unknown ine RBC_urine_dipstick unknown 12332280 unknown unknown unkn own Erythrocytes_area_in_U unknown 84929519 unknown unknown unknown rine_sediment_by_Micros copy_high_power_field glucose_urine_semiquan unknown 76196089 unknown unknown unknown titative protein_urine_semiquan unknown 30366409 unknown unknown unknown titative_dipstick_ Urine_HCG_QC_Result_CL unknown 96330719 unknown unknown unknown IA_Waived_ Urine_HCG_Exp_Date_CLI unknown 79264352 unknown unknown unknown A_Waived_ Urine_HCG_Lot_Number_C unknown 68495287 unknown unknown unknown LIA_Waived_ DIPSTICK_URINE_STRIP_L unknown 53571539 unknown unknown unknown OT_NUMBER Urobilinogen_Presence_ unknown 39466979 unknown unknown unknown in_Urine_by_Test_strip Specific_gravity_of_Ur unknown 19453914 unknown unknown unknown ine_by_Test_strip pH_of_Urine_by_Test_st unknown 77932146 unknown unknown unknown rip Nitrite_Presence_in_Ur unknown 73547614 unknown unknown unknown ine_by_Test_strip Leukocyte_esterase_Pre unknown 68253741 unknown unknown unknown sence_in_Urine_by_Test_ strip Ketones_Mass_volume_in unknown 16992245 unknown unknown unknown _Urine_by_Test_strip Glucose_Mass_volume_in unknown 10989650 unknown unknown unknown _Urine_by_Test_strip Color_of_Urine unknown 41959318 unknown unknown unknown Bilirubin.total_Presen unknown 80747679 unknown unknown unknown ce_in_Urine_by_Test_str ip Appearance_of_Urine unknown 72037370 unknown unknown unk nown culture_status unknown 55756026 unknown unknown unknown urinalysis_routine unknown 94173177 unknown unknown unkn own appearance_urine unknown 49952004 unknown unknown unknow n leukocyte_esterase_uri unknown 86664289 unknown unknown unknown ne_by_dipstick urobilinogen_urine_sem unknown 96870914 unknown unknown unknown iquantitative_dipstick_ specific_gravity_urine unknown 20140935 unknown unknown unknown pH_urine_semiquantitat unknown 96603513 unknown unknown unknown eric nitrite_urine_semiquan unknown 30175832 unknown unknown unknown titative ketones_urine_by_test_ unknown 55873180 unknown unknown unknown strip bilirubin_urine unknown 28429192 unknown unknown unknown urine_color unknown 51690084 unknown unknown unknown human_chorionic_gonado unknown 13492410 unknown unknown unknown tropin_urine_qualitativ e_urine_pregnancy_test_ Choriogonadotropin_pre unknown 05343620 unknown unknown unknown gnancy_test_Presence_in _Urine Albumin_Presence_in_Ur unknown 25945727 unknown unknown unknown ine RBC_urine_dipstick unknown 22762454 unknown unknown unkn own Erythrocytes_area_in_U unknown 05103467 unknown unknown unknown rine_sediment_by_Micros copy_high_power_field glucose_urine_semiquan unknown 52009377 unknown unknown unknown titative protein_urine_semiquan unknown 33563958 unknown unknown unknown titative_dipstick_ Urine_HCG_QC_Result_CL unknown 37215443 unknown unknown unknown IA_Waived_ Urine_HCG_Exp_Date_CLI unknown 84936356 unknown unknown unknown A_Waived_ Urine_HCG_Lot_Number_C unknown 42594992 unknown unknown unknown LIA_Waived_ DIPSTICK_URINE_STRIP_L unknown 23608475 unknown unknown unknown OT_NUMBER Urobilinogen_Presence_ unknown 06461897 unknown unknown unknown in_Urine_by_Test_strip Specific_gravity_of_Ur unknown 57756245 unknown unknown unknown ine_by_Test_strip pH_of_Urine_by_Test_st unknown 81942746 unknown unknown unknown rip Nitrite_Presence_in_Ur unknown 10229107 unknown unknown unknown ine_by_Test_strip Leukocyte_esterase_Pre unknown 87138654 unknown unknown unknown sence_in_Urine_by_Test_ strip Ketones_Mass_volume_in unknown 68349974 unknown unknown unknown _Urine_by_Test_strip Glucose_Mass_volume_in unknown 03755979 unknown unknown unknown _Urine_by_Test_strip Color_of_Urine unknown 08212227 unknown unknown unknown Bilirubin.total_Presen unknown 93237561 unknown unknown unknown ce_in_Urine_by_Test_str ip Appearance_of_Urine unknown 79830817 unknown unknown unk nown culture_status unknown 11504992 unknown unknown unknown urinalysis_routine unknown 61654089 unknown unknown unkn own appearance_urine unknown 26270622 unknown unknown unknow n leukocyte_esterase_uri unknown 64579750 unknown unknown unknown ne_by_dipstick urobilinogen_urine_sem unknown 64091852 unknown unknown unknown iquantitative_dipstick_ specific_gravity_urine unknown 26175238 unknown unknown unknown pH_urine_semiquantitat unknown 22262814 unknown unknown unknown eric nitrite_urine_semiquan unknown 04343438 unknown unknown unknown titative ketones_urine_by_test_ unknown 87983531 unknown unknown unknown strip bilirubin_urine unknown 44133842 unknown unknown unknown urine_color unknown 00798314 unknown unknown unknown human_chorionic_gonado unknown 60488040 unknown unknown unknown tropin_urine_qualitativ e_urine_pregnancy_test_ Choriogonadotropin_pre unknown 81620773 unknown unknown unknown gnancy_test_Presence_in _Urine Albumin_Presence_in_Ur unknown 93380999 unknown unknown unknown ine RBC_urine_dipstick unknown 63807509 unknown unknown unkn own Erythrocytes_area_in_U unknown 40050973 unknown unknown unknown rine_sediment_by_Micros copy_high_power_field glucose_urine_semiquan unknown 17003521 unknown unknown unknown titative protein_urine_semiquan unknown 15592601 unknown unknown unknown titative_dipstick_ Urine_HCG_QC_Result_CL unknown 61030031 unknown unknown unknown IA_Waived_ Urine_HCG_Exp_Date_CLI unknown 74152116 unknown unknown unknown A_Waived_ Urine_HCG_Lot_Number_C unknown 98597242 unknown unknown unknown LIA_Waived_ DIPSTICK_URINE_STRIP_L unknown 84505914 unknown unknown unknown OT_NUMBER Urobilinogen_Presence_ unknown 80024627 unknown unknown unknown in_Urine_by_Test_strip Specific_gravity_of_Ur unknown 61546558 unknown unknown unknown ine_by_Test_strip pH_of_Urine_by_Test_st unknown 08924391 unknown unknown unknown rip Nitrite_Presence_in_Ur unknown 39291500 unknown unknown unknown ine_by_Test_strip Leukocyte_esterase_Pre unknown 39294834 unknown unknown unknown sence_in_Urine_by_Test_ strip Ketones_Mass_volume_in unknown 64841741 unknown unknown unknown _Urine_by_Test_strip Glucose_Mass_volume_in unknown 55225351 unknown unknown unknown _Urine_by_Test_strip Color_of_Urine unknown 49860748 unknown unknown unknown Bilirubin.total_Presen unknown 34859169 unknown unknown unknown ce_in_Urine_by_Test_str ip Appearance_of_Urine unknown 46253984 unknown unknown unk nown culture_status unknown 22117370 unknown unknown unknown urinalysis_routine unknown 05290658 unknown unknown unkn own appearance_urine unknown 15745293 unknown unknown unknow n leukocyte_esterase_uri unknown 40451771 unknown unknown unknown ne_by_dipstick urobilinogen_urine_sem unknown 93260984 unknown unknown unknown iquantitative_dipstick_ specific_gravity_urine unknown 75924774 unknown unknown unknown pH_urine_semiquantitat unknown 15776354 unknown unknown unknown eric nitrite_urine_semiquan unknown 50331041 unknown unknown unknown titative ketones_urine_by_test_ unknown 29373368 unknown unknown unknown strip bilirubin_urine unknown 84528035 unknown unknown unknown urine_color unknown 74910519 unknown unknown unknown human_chorionic_gonado unknown 72980180 unknown unknown unknown tropin_urine_qualitativ e_urine_pregnancy_test_ Choriogonadotropin_pre unknown 54633907 unknown unknown unknown gnancy_test_Presence_in _Urine Albumin_Presence_in_Ur unknown 46537442 unknown unknown unknown ine RBC_urine_dipstick unknown 55698911 unknown unknown unkn own Erythrocytes_area_in_U unknown 22631304 unknown unknown unknown rine_sediment_by_Micros copy_high_power_field glucose_urine_semiquan unknown 22358466 unknown unknown unknown titative protein_urine_semiquan unknown 22491827 unknown unknown unknown titative_dipstick_ Urine_HCG_QC_Result_CL unknown 66865978 unknown unknown unknown IA_Waived_ Urine_HCG_Exp_Date_CLI unknown 06496428 unknown unknown unknown A_Waived_ Urine_HCG_Lot_Number_C unknown 97140440 unknown unknown unknown LIA_Waived_ DIPSTICK_URINE_STRIP_L unknown 03284204 unknown unknown unknown OT_NUMBER Urobilinogen_Presence_ unknown 60531904 unknown unknown unknown in_Urine_by_Test_strip Specific_gravity_of_Ur unknown 12518181 unknown unknown unknown ine_by_Test_strip pH_of_Urine_by_Test_st unknown 09606553 unknown unknown unknown rip Nitrite_Presence_in_Ur unknown 56507981 unknown unknown unknown ine_by_Test_strip Leukocyte_esterase_Pre unknown 94546311 unknown unknown unknown sence_in_Urine_by_Test_ strip Ketones_Mass_volume_in unknown 11952580 unknown unknown unknown _Urine_by_Test_strip Glucose_Mass_volume_in unknown 75737552 unknown unknown unknown _Urine_by_Test_strip Color_of_Urine unknown 01015951 unknown unknown unknown Bilirubin.total_Presen unknown 21351309 unknown unknown unknown ce_in_Urine_by_Test_str ip Appearance_of_Urine unknown 45196878 unknown unknown unk nown culture_status unknown 96648286 unknown unknown unknown urinalysis_routine unknown 15908010 unknown unknown unkn own appearance_urine unknown 84795400 unknown unknown unknow n leukocyte_esterase_uri unknown 73696475 unknown unknown unknown ne_by_dipstick urobilinogen_urine_sem unknown 49425328 unknown unknown unknown iquantitative_dipstick_ specific_gravity_urine unknown 16672517 unknown unknown unknown pH_urine_semiquantitat unknown 32207031 unknown unknown unknown eric nitrite_urine_semiquan unknown 59084103 unknown unknown unknown titative ketones_urine_by_test_ unknown 26829412 unknown unknown unknown strip bilirubin_urine unknown 42900107 unknown unknown unknown urine_color unknown 83062680 unknown unknown unknown human_chorionic_gonado unknown 53922904 unknown unknown unknown tropin_urine_qualitativ e_urine_pregnancy_test_ Choriogonadotropin_pre unknown 98177071 unknown unknown unknown gnancy_test_Presence_in _Urine Albumin_Presence_in_Ur unknown 69438389 unknown unknown unknown ine RBC_urine_dipstick unknown 22401441 unknown unknown unkn own Erythrocytes_area_in_U unknown 32675676 unknown unknown unknown rine_sediment_by_Micros copy_high_power_field glucose_urine_semiquan unknown 47615058 unknown unknown unknown titative protein_urine_semiquan unknown 25996587 unknown unknown unknown titative_dipstick_ Urine_HCG_QC_Result_CL unknown 62097210 unknown unknown unknown IA_Waived_ Urine_HCG_Exp_Date_CLI unknown 81674460 unknown unknown unknown A_Waived_ Urine_HCG_Lot_Number_C unknown 97011640 unknown unknown unknown LIA_Waived_ DIPSTICK_URINE_STRIP_L unknown 90347536 unknown unknown unknown OT_NUMBER facility observation status value reference units lab abnor mal line range code notes Walk-In Urobilinogen unknown negative unknown _5818 unkn own unknown Clinic _Presence_in_ -0 Primary Urine_by_Test Care & _strip [facility] Specific_gra unknown 1.005 unknown _5811 unknow n unknown Clinic vity_of_Urine -5 Primary _by_Test_stri Care & p [facility] pH_of_Urine_ unknown 6 unknown _5803 unknow n unknown Clinic by_Test_strip -2 [facility] Nitrite_Pres unknown negative unknown _5802 unkn own unknown Clinic ence_in_Urine -4 Primary _by_Test_stri Care & p [facility] Leukocyte_es unknown negative unknown _5799 unkn own unknown Clinic terase_Presen -2 Primary ce_in_Urine_b Care & y_Test_strip [facility] Ketones_Mass unknown negative unknown _5797 unkn own unknown Clinic _volume_in_Ur -6 Primary ine_by_Test_s Care & trip [facility] Glucose_Mass unknown negative unknown _5792 unkn own unknown Clinic _volume_in_Ur -7 Primary ine_by_Test_s Care & trip [facility] Color_of_Uri unknown yellow unknown _5778 unknow n unknown Clinic ne -6 [facility] Bilirubin.to unknown negative unknown _5770 unkn own unknown Clinic tal_Presence_ -3 Primary in_Urine_by_T Care & est_strip [facility] Appearance_o unknown clear unknown _5767 unknow n unknown Clinic f_Urine -9 [facility] culture_stat unknown No unknown _5101 unknow n unknown Clinic us 5 [facility] urinalysis_r unknown Clean unknown _47 unknow n unknown Clinic outine Catch [facility] appearance_u unknown clear unknown _328 unknow n unknown Clinic rine [facility] leukocyte_es unknown negative unknown _327 unkn own unknown Clinic terase_urine_ Primary by_dipstick [facility] urobilinogen unknown negative unknown _326 unkn own unknown Clinic _urine_semiqu Primary antitative_di Care & pstick_ [facility] specific_gra unknown 1.005 unknown _325 unknow n unknown Clinic vity_urine [facility] pH_urine_sem unknown 6 unknown _324 unknow n unknown Clinic iquantitative [facility] nitrite_urin unknown negative unknown _323 unkn own unknown Clinic e_semiquantit Primary ative [facility] ketones_urin unknown negative unknown _322 unkn own unknown Clinic e_by_test_str Primary ip [facility] bilirubin_ur unknown negative unknown _319 unkn own unknown Clinic ine [facility] urine_color unknown yellow unknown _2751 unknown unknown Clinic [facility] human_chorio unknown Negative unknown _2578 unkn own unknown Clinic nic_gonadotro Primary pin_urine_qua Care & litative_urin Ancillary e_pregnancy_t Services est_ [facility] Choriogonado unknown Negative unknown _2106 unkn own unknown Clinic tropin_pregna -3 Primary ncy_test_Pres Care & ence_in_Urine [facility] Albumin_Pres unknown negative unknown _1753 unkn own unknown Clinic ence_in_Urine -3 [facility] RBC_urine_di unknown negative unknown _1700 unkn own unknown Clinic pstick 005 [facility] Erythrocytes unknown negative unknown _1394 unkn own unknown Clinic _area_in_Urin 5-1 Primary e_sediment_by Care & _Microscopy_h Ancillary igh_power_fie Services ld [facility] glucose_urin unknown negative unknown _123 unkn own unknown Clinic e_semiquantit Primary ative [facility] & [facility] protein_urin unknown negative unknown _118 unkn own unknown Clinic e_semiquantit Primary ative_dipstic Care & k_ [facility] Urine_HCG_QC unknown Yes unknown _1149 unknow n unknown Clinic _Result_CLIA_ 42 Primary Waived_ Care [facility] Urine_HCG_Ex unknown unknown _1149 unk nown unknown Clinic p_Date_CLIA_W 3 41 Primary aived_ [facility] Urine_HCG_Lo unknown [id number] unknown _1149 unk nown unknown Clinic t_Number_CLIA 3 40 Primary _Waived_ [facility] DIPSTICK_URI unknown 304059 unknown _1014 unknow n unknown Clinic NE_STRIP_LOT_ 00 Primary NUMBER Care & [facility] Urobilinogen unknown negative unknown _5818 unkn own unknown Clinic _Presence_in_ -0 Primary Urine_by_Test Care & _strip [facility] Specific_gra unknown 1.005 unknown _5811 unknow n unknown Clinic vity_of_Urine -5 Primary _by_Test_stri Care & p [facility] pH_of_Urine_ unknown 6 unknown _5803 unknow n unknown Clinic by_Test_strip -2 [facility] Nitrite_Pres unknown negative unknown _5802 unkn own unknown Clinic ence_in_Urine -4 Primary _by_Test_stri Care & p [facility] Leukocyte_es unknown negative unknown _5799 unkn own unknown Clinic terase_Presen -2 Primary ce_in_Urine_b Care & y_Test_strip [facility] Ketones_Mass unknown negative unknown _5797 unkn own unknown Clinic _volume_in_Ur -6 Primary ine_by_Test_s Care & trip [facility] Glucose_Mass unknown negative unknown _5792 unkn own unknown Clinic _volume_in_Ur -7 Primary ine_by_Test_s Care & trip [facility] Walk-In Color_of_Uri unknown yellow unknown _5778 unknow n unknown Clinic ne -6 [facility] Bilirubin.to unknown negative unknown _5770 unkn own unknown Clinic tal_Presence_ -3 Primary in_Urine_by_T Care & est_strip [facility] Appearance_o unknown clear unknown _5767 unknow n unknown Clinic f_Urine -9 [facility] culture_stat unknown No unknown _5101 unknow n unknown Clinic us 5 [facility] urinalysis_r unknown Clean unknown _47 unknow n unknown Clinic outine Catch [facility] appearance_u unknown clear unknown _328 unknow n unknown Clinic rine [facility] leukocyte_es unknown negative unknown _327 unkn own unknown Clinic terase_urine_ Primary by_dipstick Care & [facility] urobilinogen unknown negative unknown _326 unkn own unknown Clinic _urine_semiqu Primary antitative_di Care & pstick_ [facility] specific_gra unknown 1.005 unknown _325 unknow n unknown Clinic vity_urine [facility] pH_urine_sem unknown 6 unknown _324 unknow n unknown Clinic iquantitative [facility] nitrite_urin unknown negative unknown _323 unkn own unknown Clinic e_semiquantit Primary ative Care & [facility] ketones_urin unknown negative unknown _322 unkn own unknown Clinic e_by_test_str Primary ip [facility] bilirubin_ur unknown negative unknown _319 unkn own unknown Clinic ine [facility] urine_color unknown yellow unknown _2751 unknown unknown Clinic [facility] human_chorio unknown Negative unknown _2578 unkn own unknown Clinic nic_gonadotro Primary pin_urine_qua Care & litative_urin Ancillary e_pregnancy_t Services est_ [facility] Choriogonado unknown Negative unknown _2106 unkn own unknown Clinic tropin_pregna -3 Primary ncy_test_Pres Care & ence_in_Urine [facility] Albumin_Pres unknown negative unknown _1753 unkn own unknown Clinic ence_in_Urine -3 [facility] RBC_urine_di unknown negative unknown _1700 unkn own unknown Clinic pstick 005 [facility] Erythrocytes unknown negative unknown _1394 unkn own unknown Clinic _area_in_Urin 5-1 Primary e_sediment_by Care & _Microscopy_h Ancillary igh_power_fie Services ld [facility] glucose_urin unknown negative unknown _123 unkn own unknown Clinic e_semiquantit Primary ative Care & [facility] protein_urin unknown negative unknown _118 unkn own unknown Clinic e_semiquantit Primary ative_dipstic Care & k_ [facility] Urine_HCG_QC unknown Yes unknown _1149 unknow n unknown Clinic _Result_CLIA_ 42 Primary Waived_ Care & [facility] Urine_HCG_Ex unknown unknown _1149 unk nown unknown Clinic p_Date_CLIA_W 3 41 Primary aived_ Care [facility] Urine_HCG_Lo unknown [id number] unknown _1149 unk nown unknown Clinic t_Number_CLIA 3 40 Primary _Waived_ Care [facility] DIPSTICK_URI unknown [id number] unknown _1014 unknow n unknown Clinic NE_STRIP_LOT_ 00 Primary NUMBER Care & [facility] Urobilinogen unknown negative unknown _5818 unkn own unknown Clinic _Presence_in_ -0 Primary Urine_by_Test Care & _strip [facility] Specific_gra unknown 1.005 unknown _5811 unknow n unknown Clinic vity_of_Urine -5 Primary _by_Test_stri Care & p [facility] pH_of_Urine_ unknown 6 unknown _5803 unknow n unknown Clinic by_Test_strip -2 [facility] Nitrite_Pres unknown negative unknown _5802 unkn own unknown Clinic ence_in_Urine -4 Primary _by_Test_stri Care & p [facility] Leukocyte_es unknown negative unknown _5799 unkn own unknown Clinic terase_Presen -2 Primary ce_in_Urine_b Care & y_Test_strip [facility] Ketones_Mass unknown negative unknown _5797 unkn own unknown Clinic _volume_in_Ur -6 Primary ine_by_Test_s Care & trip [facility] Glucose_Mass unknown negative unknown _5792 unkn own unknown Clinic _volume_in_Ur -7 Primary ine_by_Test_s Care & trip [facility] Color_of_Uri unknown yellow unknown _5778 unknow n unknown Clinic ne -6 [facility] Bilirubin.to unknown negative unknown _5770 unkn own unknown Clinic tal_Presence_ -3 Primary in_Urine_by_T Care & est_strip [facility] Appearance_o unknown clear unknown _5767 unknow n unknown Clinic f_Urine -9 [facility] culture_stat unknown No unknown _5101 unknow n unknown Clinic us 5 [facility] urinalysis_r unknown Clean unknown _47 unknow n unknown Clinic outine Catch [facility] appearance_u unknown clear unknown _328 unknow n unknown Clinic rine [facility] leukocyte_es unknown negative unknown _327 unkn own unknown Clinic terase_urine_ Primary by_dipstick [facility] & [facility] urobilinogen unknown negative unknown _326 unkn own unknown Clinic _urine_semiqu Primary antitative_di Care & pstick_ [facility] specific_gra unknown 1.005 unknown _325 unknow n unknown Clinic vity_urine [facility] pH_urine_sem unknown 6 unknown _324 unknow n unknown Clinic iquantitative [facility] nitrite_urin unknown negative unknown _323 unkn own unknown Clinic e_semiquantit Primary ative Care & [facility] ketones_urin unknown negative unknown _322 unkn own unknown Clinic e_by_test_str Primary ip [facility] & [facility] bilirubin_ur unknown negative unknown _319 unkn own unknown Clinic ine [facility] urine_color unknown yellow unknown _2751 unknown unknown Clinic [facility] human_chorio unknown Negative unknown _2578 unkn own unknown Clinic nic_gonadotro Primary pin_urine_qua Care & litative_urin Ancillary e_pregnancy_t Services est_ [facility] Choriogonado unknown Negative unknown _2106 unkn own unknown Clinic tropin_pregna -3 Primary ncy_test_Pres Care & ence_in_Urine [facility] Albumin_Pres unknown negative unknown _1753 unkn own unknown Clinic ence_in_Urine -3 [facility] RBC_urine_di unknown negative unknown _1700 unkn own unknown Clinic pstick 005 [facility] Erythrocytes unknown negative unknown _1394 unkn own unknown Clinic _area_in_Urin 5-1 Primary e_sediment_by Care & _Microscopy_h Ancillary igh_power_fie Services ld [facility] glucose_urin unknown negative unknown _123 unkn own unknown Clinic e_semiquantit Primary ative Care & [facility] protein_urin unknown negative unknown _118 unkn own unknown Clinic e_semiquantit Primary ative_dipstic Care & k_ [facility] Urine_HCG_QC unknown Yes unknown _1149 unknow n unknown Clinic _Result_CLIA_ 42 Primary Waived_ Care & [facility] Urine_HCG_Ex unknown unknown _1149 unk nown unknown Clinic p_Date_CLIA_W 3 41 Primary aived_ Care & [facility] Urine_HCG_Lo unknown [id number] unknown _1149 unk nown unknown Clinic t_Number_CLIA 3 40 Primary _Waived_ Care & [facility] DIPSTICK_URI unknown [id number] unknown _1014 unknow n unknown Clinic NE_STRIP_LOT_ 00 Primary NUMBER Care & [facility] Urobilinogen unknown negative unknown _5818 unkn own unknown Clinic _Presence_in_ -0 Primary Urine_by_Test Care & _strip [facility] Specific_gra unknown 1.005 unknown _5811 unknow n unknown Clinic vity_of_Urine -5 Primary _by_Test_stri Care & p [facility] pH_of_Urine_ unknown 6 unknown _5803 unknow n unknown Clinic by_Test_strip -2 [facility] Nitrite_Pres unknown negative unknown _5802 unkn own unknown Clinic ence_in_Urine -4 Primary _by_Test_stri Care & p [facility] Leukocyte_es unknown negative unknown _5799 unkn own unknown Clinic terase_Presen -2 Primary ce_in_Urine_b Care & y_Test_strip [facility] Ketones_Mass unknown negative unknown _5797 unkn own unknown Clinic _volume_in_Ur -6 Primary ine_by_Test_s Care & trip [facility] Glucose_Mass unknown negative unknown _5792 unkn own unknown Clinic _volume_in_Ur -7 Primary ine_by_Test_s Care & trip [facility] Color_of_Uri unknown yellow unknown _5778 unknow n unknown Clinic ne -6 [facility] Bilirubin.to unknown negative unknown _5770 unkn own unknown Clinic tal_Presence_ -3 Primary in_Urine_by_T Care & est_strip [facility] Appearance_o unknown clear unknown _5767 unknow n unknown Clinic f_Urine -9 [facility] culture_stat unknown No unknown _5101 unknow n unknown Clinic us 5 [facility] urinalysis_r unknown Clean unknown _47 unknow n unknown Clinic outine Catch [facility] appearance_u unknown clear unknown _328 unknow n unknown Clinic rine [facility] leukocyte_es unknown negative unknown _327 unkn own unknown Clinic terase_urine_ Primary by_dipstick Care & [facility] urobilinogen unknown negative unknown _326 unkn own unknown Clinic _urine_semiqu Primary antitative_di Care & pstick_ [facility] specific_gra unknown 1.005 unknown _325 unknow n unknown Clinic vity_urine [facility] pH_urine_sem unknown 6 unknown _324 unknow n unknown Clinic iquantitative [facility] nitrite_urin unknown negative unknown _323 unkn own unknown Clinic e_semiquantit Primary ative Care & [facility] ketones_urin unknown negative unknown _322 unkn own unknown Clinic e_by_test_str Primary ip [facility] & [facility] bilirubin_ur unknown negative unknown _319 unkn own unknown Clinic ine [facility] urine_color unknown yellow unknown _2751 unknown unknown Clinic [facility] human_chorio unknown Negative unknown _2578 unkn own unknown Clinic nic_gonadotro Primary pin_urine_qua Care & litative_urin Ancillary e_pregnancy_t Services est_ [facility] Choriogonado unknown Negative unknown _2106 unkn own unknown Clinic tropin_pregna -3 Primary ncy_test_Pres Care & ence_in_Urine [facility] Albumin_Pres unknown negative unknown _1753 unkn own unknown Clinic ence_in_Urine -3 [facility] RBC_urine_di unknown negative unknown _1700 unkn own unknown Clinic pstick 005 [facility] Erythrocytes unknown negative unknown _1394 unkn own unknown Clinic _area_in_Urin 5-1 Primary e_sediment_by Care & _Microscopy_h Ancillary igh_power_fie Services ld [facility] glucose_urin unknown negative unknown _123 unkn own unknown Clinic e_semiquantit Primary ative Care & [facility] protein_urin unknown negative unknown _118 unkn own unknown Clinic e_semiquantit Primary ative_dipstic Care & k_ [facility] Urine_HCG_QC unknown Yes unknown _1149 unknow n unknown Clinic _Result_CLIA_ 42 Primary Waived_ Care & [facility] Urine_HCG_Ex unknown unknown _1149 unk nown unknown Clinic p_Date_CLIA_W 3 41 Primary aived_ Care & [facility] Urine_HCG_Lo unknown [id number] unknown _1149 unk nown unknown Clinic t_Number_CLIA 3 40 Primary _Waived_ Care & [facility] DIPSTICK_URI unknown [id number] unknown _1014 unknow n unknown Clinic NE_STRIP_LOT_ 00 Primary NUMBER Care & [facility] Urobilinogen unknown negative unknown _5818 unkn own unknown Clinic _Presence_in_ -0 Primary Urine_by_Test Care & _strip [facility] Specific_gra unknown 1.005 unknown _5811 unknow n unknown Clinic vity_of_Urine -5 Primary _by_Test_stri Care & p [facility] pH_of_Urine_ unknown 6 unknown _5803 unknow n unknown Clinic by_Test_strip -2 [facility] Nitrite_Pres unknown negative unknown _5802 unkn own unknown Clinic ence_in_Urine -4 Primary _by_Test_stri Care & p [facility] Leukocyte_es unknown negative unknown _5799 unkn own unknown Clinic terase_Presen -2 Primary ce_in_Urine_b Care & y_Test_strip [facility] Ketones_Mass unknown negative unknown _5797 unkn own unknown Clinic _volume_in_Ur -6 Primary ine_by_Test_s Care & trip [facility] Glucose_Mass unknown negative unknown _5792 unkn own unknown Clinic _volume_in_Ur -7 Primary ine_by_Test_s Care & trip [facility] Color_of_Uri unknown yellow unknown _5778 unknow n unknown Clinic ne -6 [facility] Bilirubin.to unknown negative unknown _5770 unkn own unknown Clinic tal_Presence_ -3 Primary in_Urine_by_T Care & est_strip [facility] Appearance_o unknown clear unknown _5767 unknow n unknown Clinic f_Urine -9 [facility] culture_stat unknown No unknown _5101 unknow n unknown Clinic us 5 [facility] urinalysis_r unknown Clean unknown _47 unknow n unknown Clinic outine Catch [facility] appearance_u unknown clear unknown _328 unknow n unknown Clinic rine [facility] leukocyte_es unknown negative unknown _327 unkn own unknown Clinic terase_urine_ Primary by_dipstick [facility] & [facility] urobilinogen unknown negative unknown _326 unkn own unknown Clinic _urine_semiqu Primary antitative_di Care & pstick_ [facility] specific_gra unknown 1.005 unknown _325 unknow n unknown Clinic vity_urine [facility] pH_urine_sem unknown 6 unknown _324 unknow n unknown Clinic iquantitative [facility] nitrite_urin unknown negative unknown _323 unkn own unknown Clinic e_semiquantit Primary ative Care & [facility] ketones_urin unknown negative unknown _322 unkn own unknown Clinic e_by_test_str Primary ip Care & [facility] bilirubin_ur unknown negative unknown _319 unkn own unknown Clinic ine [facility] urine_color unknown yellow unknown _2751 unknown unknown Clinic [facility] human_chorio unknown Negative unknown _2578 unkn own unknown Clinic nic_gonadotro Primary pin_urine_qua Care & litative_urin Ancillary e_pregnancy_t Services est_ [facility] Choriogonado unknown Negative unknown _2106 unkn own unknown Clinic tropin_pregna -3 Primary ncy_test_Pres Care & ence_in_Urine [facility] Albumin_Pres unknown negative unknown _1753 unkn own unknown Clinic ence_in_Urine -3 [facility] RBC_urine_di unknown negative unknown _1700 unkn own unknown Clinic pstick 005 [facility] Erythrocytes unknown negative unknown _1394 unkn own unknown Clinic _area_in_Urin 5-1 Primary e_sediment_by Care & _Microscopy_h Ancillary igh_power_fie Services ld [facility] glucose_urin unknown negative unknown _123 unkn own unknown Clinic e_semiquantit Primary ative Care & [facility] protein_urin unknown negative unknown _118 unkn own unknown Clinic e_semiquantit Primary ative_dipstic Care & k_ [facility] Urine_HCG_QC unknown Yes unknown _1149 unknow n unknown Clinic _Result_CLIA_ 42 Primary Waived_ Care & [facility] Urine_HCG_Ex unknown unknown _1149 unk nown unknown Clinic p_Date_CLIA_W 3 41 Primary aived_ Care & [facility] Urine_HCG_Lo unknown [id number] unknown _1149 unk nown unknown Clinic t_Number_CLIA 3 40 Primary _Waived_ Care & [facility] DIPSTICK_URI unknown [id number] unknown _1014 unknow n unknown Clinic NE_STRIP_LOT_ 00 Primary NUMBER Care [facility] Urobilinogen unknown negative unknown _5818 unkn own unknown Clinic _Presence_in_ -0 Primary Urine_by_Test Care & _strip [facility] Specific_gra unknown 1.005 unknown _5811 unknow n unknown Clinic vity_of_Urine -5 Primary _by_Test_stri Care & p [facility] pH_of_Urine_ unknown 6 unknown _5803 unknow n unknown Clinic by_Test_strip -2 [facility] Nitrite_Pres unknown negative unknown _5802 unkn own unknown Clinic ence_in_Urine -4 Primary _by_Test_stri Care & p [facility] Leukocyte_es unknown negative unknown _5799 unkn own unknown Clinic terase_Presen -2 Primary ce_in_Urine_b Care & y_Test_strip [facility] Ketones_Mass unknown negative unknown _5797 unkn own unknown Clinic _volume_in_Ur -6 Primary ine_by_Test_s Care & trip [facility] Glucose_Mass unknown negative unknown _5792 unkn own unknown Clinic _volume_in_Ur -7 Primary ine_by_Test_s Care & trip [facility] Color_of_Uri unknown yellow unknown _5778 unknow n unknown Clinic ne -6 [facility] Bilirubin.to unknown negative unknown _5770 unkn own unknown Clinic tal_Presence_ -3 Primary in_Urine_by_T Care & est_strip [facility] Appearance_o unknown clear unknown _5767 unknow n unknown Clinic f_Urine -9 [facility] culture_stat unknown No unknown _5101 unknow n unknown Clinic us 5 [facility] urinalysis_r unknown Clean unknown _47 unknow n unknown Clinic outine Catch [facility] appearance_u unknown clear unknown _328 unknow n unknown Clinic rine [facility] leukocyte_es unknown negative unknown _327 unkn own unknown Clinic terase_urine_ Primary by_dipstick Care & [facility] urobilinogen unknown negative unknown _326 unkn own unknown Clinic _urine_semiqu Primary antitative_di Care & pstick_ [facility] specific_gra unknown 1.005 unknown _325 unknow n unknown Clinic vity_urine [facility] pH_urine_sem unknown 6 unknown _324 unknow n unknown Clinic iquantitative [facility] nitrite_urin unknown negative unknown _323 unkn own unknown Clinic e_semiquantit Primary ative Care & [facility] ketones_urin unknown negative unknown _322 unkn own unknown Clinic e_by_test_str Primary ip Care & [facility] bilirubin_ur unknown negative unknown _319 unkn own unknown Clinic ine [facility] urine_color unknown yellow unknown _2751 unknown unknown Clinic [facility] human_chorio unknown Negative unknown _2578 unkn own unknown Clinic nic_gonadotro Primary pin_urine_qua Care & litative_urin Ancillary e_pregnancy_t Services est_ [facility] Choriogonado unknown Negative unknown _2106 unkn own unknown Clinic tropin_pregna -3 Primary ncy_test_Pres Care & ence_in_Urine [facility] Albumin_Pres unknown negative unknown _1753 unkn own unknown Clinic ence_in_Urine -3 [facility] RBC_urine_di unknown negative unknown _1700 unkn own unknown Clinic pstick 005 [facility] Erythrocytes unknown negative unknown _1394 unkn own unknown Clinic _area_in_Urin 5-1 Primary e_sediment_by Care & _Microscopy_h Ancillary igh_power_fie Services ld [facility] glucose_urin unknown negative unknown _123 unkn own unknown Clinic e_semiquantit Primary ative Care & [facility] protein_urin unknown negative unknown _118 unkn own unknown Clinic e_semiquantit Primary ative_dipstic Care & k_ [facility] Urine_HCG_QC unknown Yes unknown _1149 unknow n unknown Clinic _Result_CLIA_ 42 Primary Waived_ Care & [facility] Urine_HCG_Ex unknown unknown _1149 unk nown unknown Clinic p_Date_CLIA_W 3 41 Primary aived_ Care & [facility] Urine_HCG_Lo unknown [id number] unknown _1149 unk nown unknown Clinic t_Number_CLIA 3 40 Primary _Waived_ Care [facility] DIPSTICK_URI unknown [id number] unknown _1014 unknow n unknown Clinic NE_STRIP_LOT_ 00 Primary NUMBER Care [facility] Vital Signs date measurement value source 20210507 temperature_standard 98 F 20210507 temperature_metric 36.67 C 20210507 respiration_rate 16 /min 20210507 height_standard 66 in 20210507 height_metric 167.64 cm 20210507 heart_rate 98 /min 20210507 BP_systolic 141 mm[Hg] 20210507 BP_diastolic 92 mm[Hg] 20210507 temperature_standard 98 F 20210507 temperature_metric 36.67 C 20210507 respiration_rate 16 /min 20210507 height_standard 66 in 20210507 height_metric 167.64 cm 20210507 heart_rate 98 /min 20210507 BP_systolic 141 mm[Hg] 20210507 BP_diastolic 92 mm[Hg] 20210507 temperature_standard 98 F 20210507 temperature_metric 36.67 C 20210507 respiration_rate 16 /min 20210507 height_standard 66 in 20210507 height_metric 167.64 cm 20210507 heart_rate 98 /min 20210507 BP_systolic 141 mm[Hg] 20210507 BP_diastolic 92 mm[Hg] 20210507 temperature_standard 98 F 20210507 temperature_metric 36.67 C 20210507 respiration_rate 16 /min 20210507 height_standard 66 in 20210507 height_metric 167.64 cm 20210507 heart_rate 98 /min 20210507 BP_systolic 141 mm[Hg] 20210507 BP_diastolic 92 mm[Hg] 20210507 temperature_standard 98 F 20210507 temperature_metric 36.67 C 20210507 respiration_rate 16 /min 20210507 height_standard 66 in 20210507 height_metric 167.64 cm 20210507 heart_rate 98 /min 20210507 BP_systolic 141 mm[Hg] 20210507 BP_diastolic 92 mm[Hg] 20210507 temperature_standard 98 F 20210507 temperature_metric 36.67 C 20210507 respiration_rate 16 /min 20210507 height_standard 66 in 20210507 height_metric 167.64 cm 20210507 heart_rate 98 /min 20210507 BP_systolic 141 mm[Hg] [id number] BP_diastolic 92 mm[Hg]
[2021-06-19] MEDS ORDERED: predniSONE 20 MG TABLET PO STA (14:54)
[2021-06-19] MEDS ORDERED: EPINEPHrine 1 MG/ML AMP IM STA (14:54)
--- NOTE | 2021-06-19 15:46 | ED Physician Documentation ---
History of Present Illness - Stated complaint Stated Complaint: RASH ON ABD - Chief complaint Chief Complaint: Allergic Rx - History obtained from History obtained from: Patient - History of Present Illness Timing: How many days ago (3) Pain level max: 5 Pain level now: 5 - Additonal information Additional information: Patient is a 46-year-old female who presents to the emergency department stating that she bought a new detergent and used it at home. She states 3 days ago she put on new pants, she states that she does not wear any underwear. She states that she slept in the pants as well. Noticed that she developed a diffuse rash over the next 24 hours. Tried hydrocortisone without relief. [place]enton mildly short of breath today so came in for evaluation. No fevers. No chills. Nothing makes it better or worse. Review of Systems Constitutional: denies: Fever, Chills Respiratory: denies: Cough GI: denies: Nausea, Vomiting, Diarrhea Skin: denies: Rash Musculoskeletal: denies: Neck pain, Back pain Neurologic: denies: Headache PD PAST MEDICAL HISTORY - Past Medical History Past Medical History: Yes Cardiovascular: None Respiratory: Asthma Endocrine/Autoimmune: None GI: GERD, Ulcers : None HEENT: Other Psych: Anxiety, Panic attacks, Claustrophobia Musculoskeletal: None Derm: None - Past Surgical History Past Surgical History: Yes General: Cholecystectomy Ortho: Arthroscopic surgery /[employer]: 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, Tubal ligation, Breast implants Derm: Other - Present Medications Home Medications: Ambulatory Orders Medication Instructions Recorded Confirmed Hydrocodone/Acetaminophen 1 - 2 each PO Q6H PRN #10 tablet 04/03/19 [Hydrocodon-Acetaminophen 5-325] Ibuprofen [Motrin] 800 mg PO Q8H PRN #30 tablet 04/03/19 Prochlorperazine [Compazine] 5 mg PO Q6H PRN #10 tablet 04/03/19 predniSONE [Deltasone] 10 mg PO [id number] #42 tab 06/19/21 - Allergies Allergies/Adverse Reactions: Allergies Allergy/AdvReac Type Severity Reaction Status Date / Time Antihistamines - Alkylamine Allergy Confusion, Verified 06/19/21 14:39 dizziness, nausea doxycycline Allergy Hives Verified 06/19/21 14:39 hydromorphone [From Dilaudid] Allergy Anxiety, Verified 06/19/21 14:39 Agitation - Social History Does the pt smoke?: No Smoking Status: Never smoker Does the pt drink ETOH?: No Does the pt have substance abuse?: No - Immunizations Immunizations are current?: Yes - POLST Patient has POLST: No PD ED PE NORMAL - Vitals Vital signs reviewed: Yes - General General: Alert and oriented X 3, No acute distress - HEENT HEENT: Moist mucous membranes - Neck Neck: Supple, no meningeal sign - Cardiac Cardiac: RRR - Respiratory Respiratory: No respiratory distress, Clear bilaterally - Abdomen Abdomen: Soft, Non tender, Non distended - Derm Derm: Warm and dry, Other (Diffuse Erythematous maculopapular exanthem over the back of the legs, buttocks, abdomen and trunk. Blanches easily.) - Neuro Neuro: Alert and oriented X 3 - Psych Psych: Normal mood, Normal affect Results - Vitals Vitals: Vital Signs - 24 hr 06/19/21 06/19/21 06/19/21 14:36 15:12 15:17 Temperature 36.2 C L Heart Rate 115 H 95 82 Respiratory 22 21 20 Rate Blood Pressure 160/100 H O2 Saturation 100 100 98 06/19/21 15:54 Temperature Heart Rate 88 Respiratory Rate Blood Pressure 160/72 H O2 Saturation 100 Oxygen O2 Source Room air PD MEDICAL DECISION MAKING - ED course Complexity details: re-evaluated patient, considered differential, d/w patient ED course: Patient appears to have a contact dermatitis. We will place on steroids for home. She did have mild chest tightness so we did give her a dose of IM epinephrine. That resolved and the rash is improving as well. We will have her follow-up with her doctor for further care. No evidence of anaphylaxis. No stridor. No wheezing. Patient counseled regarding signs and symptoms for which I believe and urgent re-evaluation would be necessary. Patient with good understanding of and agreement to plan and is comfortable going home at this time This document was made in part using voice recognition software. While efforts are made to proofread this document, sound alike and grammatical errors may occur. Departure - Departure Disposition: 01 Home, Self Care Clinical Impression: Contact dermatitis Qualifiers: Contact dermatitis type: allergic Contact dermatitis trigger: unspecified trigger Qualified Code(s): L23.9 - Allergic contact dermatitis, unspecified cause Condition: Good Instructions: ED Dermatitis Contact Follow-Up: your,doctor in 3 days [Other] Prescriptions: predniSONE [Deltasone] 10 mg PO [id number] #42 tab Comments: Your prescriptions were sent to [facility] in [place]. Please follow-up with your doctor for further care. Return if you worsen. Discharge Date/Time: 06/19/21 15:54
[2021-06-19 15:55] VITALS: BP 160/72
== END 2021-06-19 15:54 | disposition home or self-care (01) ==
LOC: ED 14:22
DX: L23.9 Allergic contact dermatitis, unspecified cause (principal); R07.89 Other chest pain
CPT/HCPCS: 96372; 99282; 99283; J7512

== ENCOUNTER 2021-06-23 16:05 | Outpatient (CLI) | payer BC ==
[2021-06-23 18:20] LABS: BASOPHILS # (AUTO) 0.1 10^3/uL (0.0-0.1); BASOPHILS % (AUTO) 0.4 %; EOSINOPHILS # (AUTO) 0.6 10^3/uL (0.0-0.7); EOSINOPHILS % (AUTO) 4.2 %; HCT - HEMATOCRIT 38.3 % (37.0-47.0); HGB - HEMOGLOBIN 12.8 g/dL (12.0-16.0); LYMPHOCYTES # (AUTO) 1.4 10^3/uL (1.5-3.5); LYMPHOCYTES % (AUTO) 10.3 %; MEAN CORPUSCULAR HEMOGLOBIN 31.1 pg (27.0-31.0); MEAN CORPUSCULAR HGB CONC 33.4 g/dL (32.0-36.0); MEAN PLATELET VOLUME 10.7 fL (7.9-10.8); MONOCYTES # (AUTO) 0.4 10^3/uL (0.0-1.0); MONOCYTES % (AUTO) 2.8 %; NEUTROPHILS # (AUTO) 11.3 10^3/uL (1.5-6.6); NEUTROPHILS % (AUTO) 81.4 %; PLT - PLATELET COUNT 323 10^3/uL (130-450); RED BLOOD COUNT 4.12 10^6/uL (4.20-5.40); RED CELL DISTRIBUTION WIDTH 14.1 % (12.0-15.0); WHITE BLOOD COUNT 13.9 x10^3/uL (4.8-10.8)
[2021-06-23 18:32] LABS: ALBUMIN 3.8 g/dL (3.2-5.5); ALBUMIN/GLOBULIN RATIO 1.2 (1.0-2.2); ALKALINE PHOSPHATASE 50 IU/L (42-121); ALT ALANINE AMINOTRANSFERASE 38 IU/L (10-60); AST ASPARTATE AMINOTRANSFERASE 21 IU/L (10-42); BILIRUBIN,TOTAL 0.5 mg/dL (0.2-1.0); BUN - BLOOD UREA NITROGEN 18 mg/dL (6-20); CALCIUM 8.4 mg/dL (8.5-10.3); CARBON DIOXIDE - CO2 24 mmol/L (21-32); CHLORIDE 103 mmol/L (101-111); GFR - MDRD 60 (>89); GLUCOSE 116 mg/dL (70-100); LIPASE 43 U/L (22-51); POTASSIUM 3.6 mmol/L (3.5-5.0); SODIUM 137 mmol/L (135-145); TOTAL PROTEIN 6.9 g/dL (6.7-8.2)
[2021-06-23 18:43] LABS: THYROID STIMULATING HORMONE 2.75 uIU/mL (0.34-5.60)
[2021-06-23 18:54] LABS: FOLATE 15.2 ng/mL (5.90 - >24.8)
[2021-06-23 19:11] LABS: CRP - C-REACTIVE PROTEIN < 1.0 mg/dL (0-1.0)
[2021-06-24 12:14] LABS: ESTIMATED AVERAGE GLUCOSE 111 mg/dL (70-100); HEMOGLOBIN A1c% 5.5 % (4.27-6.07)
== END 2021-06-23 23:59 | disposition home or self-care (01) ==
LOC: LAB.S 16:05
PROVIDERS: ATTEND Registered Nurse
DX: R21 Rash and other nonspecific skin eruption (principal); R10.9 Unspecified abdominal pain
CPT/HCPCS: 36415; 80053; 82607; 82746; 83036; 83690; 84443; 85025; 86140

== ENCOUNTER 2021-06-25 10:34 | Emergency (ER) | payer BC ==
--- OUTSIDE RECORDS SUMMARY | 2021-06-25 10:44 | EXTERNAL MEDICAL SUMMARY RPT | Continuity of Care Document ---
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 Encounters No information. Medications date description facility [id number] hydroxyzine hcl [facility] [id number] lorazepam [facility] 20210623 hydroxyzine hcl [facility] 20210623 lorazepam [facility] 20210507 fluconazole [facility] [id number] albendazole [facility] [id number] fluconazole [facility] [id number] albendazole [facility] [id number] fluconazole [facility] [id number] albendazole [facility] [id number] fluconazole [facility] [id number] albendazole [facility] [id number] fluconazole [facility] [id number] albendazole [facility] [id number] fluconazole [facility] [id number] albendazole [facility] [id number] fluconazole [facility] [id number] albendazole [facility] Problems date description facility [id number] VITAMIN B 12 [facility] 20210623 Urine C&S [facility] 20210623 HGBA1C [facility] 20210623 Folic Acid [facility] 20210623 COMPREHENSIVE METABOLIC PANEL [facility] 20210623 TSH WITH REFLEX TO FT4 [facility] 20210623 Rash and other nonspecific skin [facility] 20210623 Lipase [facility] 20210623 Eruption [facility] 20210623 CRP [facility] 20210623 CBC W/Diff/Plt [facility] 20210507 Dysuria [facility] 20210507 Alcohol use [facility] 20210507 Abdominal pain, unspecified site [facility] 20210507 Abdominal pain [facility] 20210507 Calprotectin, fecal [facility] 20210507 Tobacco smoking status NHIS [facility] 20210507 Former smoker [facility] 20210507 Tobacco use and exposure [facility] 20210507 Stool Culture [facility] 20210507 Giardia Lamblia Antigen Detection by W [facility] 20210507 Details of drug misuse behavior [facility] 20210507 STOOL FOR O&P [facility] 20210507 Unspecified abdominal pain [facility] 20210507 Total score? [facility] Procedures date description facility 20210623 Ketorolac Tromethamine 30 mg/ml Soln W [facility] 20210623 Dexamethasone Sodium Phosphate Inj [facility] 10mg/1mL [facility] 20210623 CRP [facility] 20210623 CBC W/Diff/Plt [facility] 20210623 Lipase [facility] 20210623 HGBA1C [facility] 20210623 Folic Acid [facility] 20210623 VITAMIN B 12 [facility] 20210623 POC URINALYSIS DIP [facility] 20210623 COMPREHENSIVE METABOLIC PANEL [facility] 20210623 TSH WITH REFLEX TO FT4 [facility] 20210623 Ketorolac Tromethamine 30 mg/ml Soln W [facility] 20210623 Dexamethasone Sodium Phosphate Inj [facility] 10mg/1mL [facility] 20210623 CRP [facility] 20210623 CBC W/Diff/Plt [facility] 20210623 Lipase [facility] 20210623 HGBA1C [facility] 20210623 Folic Acid [facility] 20210623 VITAMIN B 12 [facility] 20210623 POC URINALYSIS DIP [facility] 20210623 COMPREHENSIVE METABOLIC PANEL [facility] 20210623 TSH WITH REFLEX TO FT4 [facility] 20210507 POC URINALYSIS DIP [facility] 20210507 POC URINALYSIS DIP [facility] [id number] POC URINALYSIS DIP [facility] [id number] POC URINALYSIS DIP [facility] [id number] POC URINALYSIS DIP [facility] [id number] POC URINALYSIS DIP [facility] [id number] POC URINALYSIS DIP [facility] Results test status date ordered by attending specimen lópez e THYROID_STIMULATING_HO unknown 20210623 unknown unknown unknown RMONE TSH unknown 20210623 unknown unknown unknown urea_nitrogen_blood unknown 20210623 unknown unknown unk nown Erythrocytes_volume_in unknown 20210623 unknown unknown unknown _Blood_by_Automated_cou nt Erythrocyte_distributi unknown 20210623 unknown unknown unknown on_width_Ratio_by_Autom ated_count MCV_Entitic_volume_by_ unknown 20210623 unknown unknown unknown Automated_count MCH_Entitic_mass_by_Au unknown 20210623 unknown unknown unknown tomated_count Platelets_volume_in_Bl unknown 20210623 unknown unknown unknown ood_by_Automated_count Platelet_mean_volume_E unknown 20210623 unknown unknown unknown ntitic_volume_in_Blood_ by_Steve neutrophil_count_blood unknown 20210623 unknown unknown unknown monocyte_count_blood unknown 20210623 unknown unknown un known lymphocyte_count_blood unknown 20210623 unknown unknown unknown Hemoglobin_Mass_volume unknown 20210623 unknown unknown unknown _in_Blood eosinophil_count_blood unknown 20210623 unknown unknown unknown Basophils_volume_in_Bl unknown 20210623 unknown unknown unknown ood_by_Manual_count leukocyte_count_blood unknown 20210623 unknown unknown u nknown erythrocyte_RBC_count unknown 20210623 unknown unknown u nknown Leukocytes_volume_in_B unknown 20210623 unknown unknown unknown lood_by_Automated_count Glomerular_Filtration_ unknown 20210623 unknown unknown unknown rate platelet_count unknown 20210623 unknown unknown unknown hemoglobin_blood unknown 20210623 unknown unknown unknow n hematocrit_blood unknown 20210623 unknown unknown unknow n potassium_blood unknown 20210623 unknown unknown unknown vitamin_b12_serum unknown 20210623 unknown unknown unkno wn Glomerular_filtration_r unknown 20210623 unknown unknown unknown ate_1.73_sq_M.predicted _among_non-blacks_Volum e_Rate_Area_in_Serum_Pl asma_or_Blood_by_Creati nine-based_formula_MDRD _ Hematocrit_Volume_Frac unknown 20210623 unknown unknown unknown tion_of_Blood_by_Automa ted_count bilirubin_serum_total unknown 20210623 unknown unknown u nknown alanine_aminotransfera unknown 20210623 unknown unknown unknown se_SGPT_serum carbon_dioxide_serum_t unknown 20210623 unknown unknown unknown otal aspartate_aminotransfe unknown 20210623 unknown unknown unknown rase_SGOT_serum protein_total_serum unknown 20210623 unknown unknown unk nown blood_glucose unknown 20210623 unknown unknown unknown potassium_blood unknown 20210623 unknown unknown unknown mean_corpuscular_volum unknown 20210623 unknown unknown unknown e_RBC Urea_nitrogen_Mass_vol unknown 20210623 unknown unknown unknown ume_in_Serum_or_Plasma globulin_serum unknown 20210623 unknown unknown unknown alkaline_phosphatase_s unknown 20210623 unknown unknown unknown lizzeth Sodium_Moles_volume_in unknown 20210623 unknown unknown unknown _Serum_or_Plasma Protein_Mass_volume_in unknown 20210623 unknown unknown unknown _Serum_or_Plasma eosinophil_count_blood unknown 20210623 unknown unknown unknown anion_gap_serum unknown 20210623 unknown unknown unknown mean_platelet_volume unknown 20210623 unknown unknown un known C-reactive_protein_ser unknown 20210623 unknown unknown unknown um basophil_count_blood unknown 20210623 unknown unknown un known monocyte_count_blood unknown 20210623 unknown unknown un known lymphocyte_count_blood unknown 20210623 unknown unknown unknown neutrophil_count_blood unknown 20210623 unknown unknown unknown Glucose_Mass_volume_in unknown 20210623 unknown unknown unknown _Serum_or_Plasma Globulin_Mass_volume_i unknown 20210623 unknown unknown unknown n_Serum Creatinine_Mass_volume unknown 20210623 unknown unknown unknown _in_Serum_or_Plasma Cobalamin_Vitamin_B12_ unknown 20210623 unknown unknown unknown Mass_volume_in_Serum_or _Plasma Chloride_Moles_volume_ unknown 20210623 unknown unknown unknown in_Serum_or_Plasma carbon_dioxide_serum_t unknown 20210623 unknown unknown unknown otal Calcium_Moles_volume_i unknown 20210623 unknown unknown unknown n_Serum_or_Plasma albumin_serum unknown 20210623 unknown unknown unknown C_reactive_protein_Mas unknown 20210623 unknown unknown unknown s_volume_in_Serum_or_Pl asma Bilirubin.total_Mass_v unknown 20210623 unknown unknown unknown olume_in_Serum_or_Plasm a Aspartate_aminotransfe unknown 20210623 unknown unknown unknown rase_Enzymatic_activity _volume_in_Serum_or_Pla sma Anion_gap_4_in_Serum_o unknown 20210623 unknown unknown unknown r_Plasma creatinine_serum unknown 20210623 unknown unknown unknow n Alkaline_phosphatase_E unknown 20210623 unknown unknown unknown nzymatic_activity_volum e_in_Blood Albumin_Globulin_Mass_ unknown 20210623 unknown unknown unknown Ratio_in_Serum_or_Plasm a Albumin_Mass_volume_in unknown 20210623 unknown unknown unknown _Serum_or_Plasma Alanine_aminotransfera unknown 20210623 unknown unknown unknown se_Enzymatic_activity_v olume_in_Serum_or_Plasm a mean_corpuscular_hemog unknown 20210623 unknown unknown unknown lobin_concentration_rbc sodium_serum unknown 20210623 unknown unknown unknown albumin_globulin_ratio unknown 20210623 unknown unknown unknown _serum chloride_serum unknown 20210623 unknown unknown unknown Thyrotropin_Units_volu unknown 20210623 unknown unknown unknown me_in_Serum_or_Plasma_b y_Detection_limit_lt_0. 05_mIU_L calcium_serum unknown 20210623 unknown unknown unknown mean_corpuscular_hemog unknown 20210623 unknown unknown unknown lobin_RBC red_blood_cell_distrib unknown 20210623 unknown unknown unknown ution_width T unknown 20210623 unknown unknown unknown T unknown 20210623 unknown unknown unknown T unknown 20210623 unknown unknown unknown T unknown 20210623 unknown unknown unknown T unknown 20210623 unknown unknown unknown T unknown 20210623 unknown unknown unknown T unknown 20210623 unknown unknown unknown NEUTROPHILS_AUTO_ unknown 20210623 unknown unknown unkno wn T unknown 20210623 unknown unknown unknown T unknown 20210623 unknown unknown unknown T unknown [id number] unknown unknown unknown MONOCYTES_AUTO_ unknown [id number] unknown unknown unknown T unknown 28820188 unknown unknown unknown T unknown 91216204 unknown unknown unknown T unknown [id number] unknown unknown unknown T unknown 02230449 unknown unknown unknown LYMPHOCYTES_AUTO_ unknown [id number] unknown unknown unkno wn T unknown 67072002 unknown unknown unknown T unknown 72402115 unknown unknown unknown T unknown 81746504 unknown unknown unknown T unknown 89066228 unknown unknown unknown T unknown 24483572 unknown unknown unknown T unknown 33639721 unknown unknown unknown T unknown [id number] unknown unknown unknown GFR_-_MDRD unknown 20293344 unknown unknown unknown T unknown [id number] unknown unknown unknown EOSINOPHILS_AUTO_ unknown [id number] unknown unknown unkno wn T unknown 41717420 unknown unknown unknown SXS_-_W-OYCOQRLC_YDTGZ unknown [id number] unknown unknown unknown IN T unknown 91219924 unknown unknown unknown T unknown 81791565 unknown unknown unknown T unknown [id number] unknown unknown unknown T unknown 52437396 unknown unknown unknown T unknown 44204935 unknown unknown unknown T unknown 78462928 unknown unknown unknown BILIRUBIN_TOTAL unknown 63350099 unknown unknown unknown BASOPHILS_AUTO_ unknown 72421437 unknown unknown unknown T unknown 29925770 unknown unknown unknown T unknown 95703564 unknown unknown unknown T unknown 50197216 unknown unknown unknown T unknown 61551774 unknown unknown unknown T unknown 73661571 unknown unknown unknown ALT_ALANINE_AMINOTRANS unknown 26137504 unknown unknown unknown FERASE ALKALINE_PHOSPHATASE unknown 84680242 unknown unknown un known T unknown 48024285 unknown unknown unknown T unknown [id number] unknown unknown unknown ALBUMIN_GLOBULIN_RATIO unknown 65034981 unknown unknown unknown THYROID_STIMULATING_HO unknown 23182902 unknown unknown unknown RMONE TSH unknown 01019223 unknown unknown unknown urea_nitrogen_blood unknown 35484947 unknown unknown unk nown Erythrocytes_volume_in unknown 48452248 unknown unknown unknown _Blood_by_Automated_cou nt Erythrocyte_distributi unknown 68364014 unknown unknown unknown on_width_Ratio_by_Autom ated_count MCV_Entitic_volume_by_ unknown 26931394 unknown unknown unknown Automated_count MCH_Entitic_mass_by_Au unknown 70227980 unknown unknown unknown tomated_count Platelets_volume_in_Bl unknown 11938272 unknown unknown unknown ood_by_Automated_count Platelet_mean_volume_E unknown 52241929 unknown unknown unknown ntitic_volume_in_Blood_ by_Rees-Deondre neutrophil_count_blood unknown 20210623 unknown unknown unknown monocyte_count_blood unknown 20210623 unknown unknown un known lymphocyte_count_blood unknown 20210623 unknown unknown unknown Hemoglobin_Mass_volume unknown 20210623 unknown unknown unknown _in_Blood eosinophil_count_blood unknown 20210623 unknown unknown unknown Basophils_volume_in_Bl unknown 20210623 unknown unknown unknown ood_by_Manual_count leukocyte_count_blood unknown 20210623 unknown unknown u nknown erythrocyte_RBC_count unknown 20210623 unknown unknown u nknown Leukocytes_volume_in_B unknown 20210623 unknown unknown unknown lood_by_Automated_count Glomerular_Filtration_ unknown 20210623 unknown unknown unknown rate platelet_count unknown 20210623 unknown unknown unknown hemoglobin_blood unknown 20210623 unknown unknown unknow n hematocrit_blood unknown 20210623 unknown unknown unknow n potassium_blood unknown 20210623 unknown unknown unknown vitamin_b12_serum unknown 20210623 unknown unknown unkno wn Glomerular_filtration_r unknown 20210623 unknown unknown unknown ate_1.73_sq_M.predicted _among_non-blacks_Volum e_Rate_Area_in_Serum_Pl asma_or_Blood_by_Creati nine-based_formula_MDRD _ Hemoglobin_A1c_Hemoglo unknown 20210623 unknown unknown unknown bin_total_in_Blood_-_ Hematocrit_Volume_Frac unknown 20210623 unknown unknown unknown tion_of_Blood_by_Automa ted_count bilirubin_serum_total unknown 20210623 unknown unknown u nknown alanine_aminotransfera unknown 20210623 unknown unknown unknown se_SGPT_serum carbon_dioxide_serum_t unknown 20210623 unknown unknown unknown otal aspartate_aminotransfe unknown 20210623 unknown unknown unknown rase_SGOT_serum protein_total_serum unknown 20210623 unknown unknown unk nown blood_glucose unknown 20210623 unknown unknown unknown potassium_blood unknown 20210623 unknown unknown unknown mean_corpuscular_volum unknown 20210623 unknown unknown unknown e_RBC Urea_nitrogen_Mass_vol unknown 20210623 unknown unknown unknown ume_in_Serum_or_Plasma globulin_serum unknown 20210623 unknown unknown unknown alkaline_phosphatase_s unknown 20210623 unknown unknown unknown lizzeth Sodium_Moles_volume_in unknown 20210623 unknown unknown unknown _Serum_or_Plasma Protein_Mass_volume_in unknown 20210623 unknown unknown unknown _Serum_or_Plasma eosinophil_count_blood unknown 20210623 unknown unknown unknown hemoglobin_A1C_blood_a unknown 20210623 unknown unknown unknown s_of_total_hemoglobin anion_gap_serum unknown 20210623 unknown unknown unknown mean_platelet_volume unknown 20210623 unknown unknown un known Glucose_mean_value_Mas unknown 20210623 unknown unknown unknown s_volume_in_Blood_Estim ated_from_glycated_hemo globin C-reactive_protein_ser unknown 20210623 unknown unknown unknown um basophil_count_blood unknown 20210623 unknown unknown un known monocyte_count_blood unknown 20210623 unknown unknown un known lymphocyte_count_blood unknown 20210623 unknown unknown unknown neutrophil_count_blood unknown 20210623 unknown unknown unknown Glucose_Mass_volume_in unknown 20210623 unknown unknown unknown _Serum_or_Plasma Globulin_Mass_volume_i unknown 20210623 unknown unknown unknown n_Serum Creatinine_Mass_volume unknown 20210623 unknown unknown unknown _in_Serum_or_Plasma Cobalamin_Vitamin_B12_ unknown 20210623 unknown unknown unknown Mass_volume_in_Serum_or _Plasma Chloride_Moles_volume_ unknown 20210623 unknown unknown unknown in_Serum_or_Plasma carbon_dioxide_serum_t unknown 20210623 unknown unknown unknown otal Calcium_Moles_volume_i unknown 20210623 unknown unknown unknown n_Serum_or_Plasma albumin_serum unknown 20210623 unknown unknown unknown C_reactive_protein_Mas unknown 20210623 unknown unknown unknown s_volume_in_Serum_or_Pl asma Bilirubin.total_Mass_v unknown 20210623 unknown unknown unknown olume_in_Serum_or_Plasm a Aspartate_aminotransfe unknown 20210623 unknown unknown unknown rase_Enzymatic_activity _volume_in_Serum_or_Pla sma Anion_gap_4_in_Serum_o unknown 20210623 unknown unknown unknown r_Plasma Estimated_Average_Gluc unknown 20210623 unknown unknown unknown ose creatinine_serum unknown 20210623 unknown unknown unknow n Alkaline_phosphatase_E unknown 20210623 unknown unknown unknown nzymatic_activity_volum e_in_Blood Albumin_Globulin_Mass_ unknown [id number] unknown unknown unknown Ratio_in_Serum_or_Plasm a Albumin_Mass_volume_in unknown 16978513 unknown unknown unknown _Serum_or_Plasma Alanine_aminotransfera unknown 44620404 unknown unknown unknown se_Enzymatic_activity_v olume_in_Serum_or_Plasm a mean_corpuscular_hemog unknown 99664012 unknown unknown unknown lobin_concentration_rbc sodium_serum unknown 95465167 unknown unknown unknown albumin_globulin_ratio unknown 38975741 unknown unknown unknown _serum chloride_serum unknown 32613259 unknown unknown unknown Thyrotropin_Units_volu unknown 74075092 unknown unknown unknown me_in_Serum_or_Plasma_b y_Detection_limit_lt_0. 05_mIU_L calcium_serum unknown 44014018 unknown unknown unknown mean_corpuscular_hemog unknown 28720026 unknown unknown unknown lobin_RBC red_blood_cell_distrib unknown 76368187 unknown unknown unknown ution_width T unknown 52258026 unknown unknown unknown T unknown 85874981 unknown unknown unknown T unknown 07732937 unknown unknown unknown T unknown 45081052 unknown unknown unknown T unknown 56045088 unknown unknown unknown T unknown 62329881 unknown unknown unknown T unknown 98464319 unknown unknown unknown NEUTROPHILS_AUTO_ unknown 36034220 unknown unknown unkno wn T unknown 01896822 unknown unknown unknown T unknown 49309754 unknown unknown unknown T unknown 88940995 unknown unknown unknown MONOCYTES_AUTO_ unknown [id number] unknown unknown unknown T unknown 07923361 unknown unknown unknown T unknown 89722459 unknown unknown unknown T unknown 50068107 unknown unknown unknown T unknown 93854520 unknown unknown unknown LYMPHOCYTES_AUTO_ unknown 57079259 unknown unknown unkno wn T unknown 99396442 unknown unknown unknown T unknown 47542530 unknown unknown unknown T unknown 49422959 unknown unknown unknown T unknown 06498307 unknown unknown unknown T unknown 40088328 unknown unknown unknown T unknown 39553243 unknown unknown unknown T unknown 61175277 unknown unknown unknown GFR_-_MDRD unknown 62888840 unknown unknown unknown T unknown 77100774 unknown unknown unknown T unknown 19451074 unknown unknown unknown EOSINOPHILS_AUTO_ unknown [id number] unknown unknown unkno wn T unknown [id number] unknown unknown unknown ESTIMATED_AVERAGE_GLUC unknown 30334604 unknown unknown unknown OSE MCP_-_N-NOCKQCDG_DJVQO unknown 20210623 unknown unknown unknown IN T unknown 20210623 unknown unknown unknown T unknown 20210623 unknown unknown unknown T unknown 20210623 unknown unknown unknown T unknown 20210623 unknown unknown unknown T unknown 20210623 unknown unknown unknown T unknown 20210623 unknown unknown unknown BILIRUBIN_TOTAL unknown 20210623 unknown unknown unknown BASOPHILS_AUTO_ unknown 20210623 unknown unknown unknown T unknown 20210623 unknown unknown unknown T unknown 20210623 unknown unknown unknown T unknown 20210623 unknown unknown unknown T unknown 20210623 unknown unknown unknown T unknown 20210623 unknown unknown unknown ALT_ALANINE_AMINOTRANS unknown 20210623 unknown unknown unknown FERASE ALKALINE_PHOSPHATASE unknown 20210623 unknown unknown un known T unknown 20210623 unknown unknown unknown T unknown 20210623 unknown unknown unknown ALBUMIN_GLOBULIN_RATIO unknown 20210623 unknown unknown unknown T unknown 20210623 unknown unknown unknown HEMOGLOBIN_A1c_ unknown 20210623 unknown unknown unknown Urobilinogen_Presence_ unknown 77810002 unknown unknown unknown in_Urine_by_Test_strip Specific_gravity_of_Ur unknown 99354106 unknown unknown unknown ine_by_Test_strip pH_of_Urine_by_Test_st unknown 42024071 unknown unknown unknown rip Nitrite_Presence_in_Ur unknown 04592261 unknown unknown unknown ine_by_Test_strip Leukocyte_esterase_Pre unknown 96797933 unknown unknown unknown sence_in_Urine_by_Test_ strip Ketones_Mass_volume_in unknown 14274543 unknown unknown unknown _Urine_by_Test_strip Glucose_Mass_volume_in unknown 11688742 unknown unknown unknown _Urine_by_Test_strip Color_of_Urine unknown 56817504 unknown unknown unknown Bilirubin.total_Presen unknown 79769288 unknown unknown unknown ce_in_Urine_by_Test_str ip Appearance_of_Urine unknown 77708191 unknown unknown unk nown culture_status unknown 32123959 unknown unknown unknown urinalysis_routine unknown [id number] unknown unknown unkn own appearance_urine unknown [id number] unknown unknown unknow n leukocyte_esterase_uri unknown [id number] unknown unknown unknown ne_by_dipstick urobilinogen_urine_sem unknown [id number] unknown unknown unknown iquantitative_dipstick_ specific_gravity_urine unknown [id number] unknown unknown unknown pH_urine_semiquantitat unknown [id number] unknown unknown unknown eric nitrite_urine_semiquan unknown [id number] unknown unknown unknown titative ketones_urine_by_test_ unknown 59330312 unknown unknown unknown strip bilirubin_urine unknown 58501095 unknown unknown unknown urine_color unknown 36953595 unknown unknown unknown human_chorionic_gonado unknown 26005836 unknown unknown unknown tropin_urine_qualitativ e_urine_pregnancy_test_ Choriogonadotropin_pre unknown 28343160 unknown unknown unknown gnancy_test_Presence_in _Urine Albumin_Presence_in_Ur unknown 61324678 unknown unknown unknown ine RBC_urine_dipstick unknown [id number] unknown unknown unkn own Erythrocytes_area_in_U unknown 67380409 unknown unknown unknown rine_sediment_by_Micros copy_high_power_field glucose_urine_semiquan unknown 24083592 unknown unknown unknown titative protein_urine_semiquan unknown 01187353 unknown unknown unknown titative_dipstick_ Urine_HCG_QC_Result_CL unknown [id number] unknown unknown unknown IA_Waived_ Urine_HCG_Exp_Date_CLI unknown [id number] unknown unknown unknown A_Waived_ Urine_HCG_Lot_Number_C unknown 81655314 unknown unknown unknown LIA_Waived_ DIPSTICK_URINE_STRIP_L unknown [id number] unknown unknown unknown OT_NUMBER Urobilinogen_Presence_ unknown 54211842 unknown unknown unknown in_Urine_by_Test_strip Specific_gravity_of_Ur unknown 41911216 unknown unknown unknown ine_by_Test_strip pH_of_Urine_by_Test_st unknown 28690594 unknown unknown unknown rip Nitrite_Presence_in_Ur unknown 11546450 unknown unknown unknown ine_by_Test_strip Leukocyte_esterase_Pre unknown 96013118 unknown unknown unknown sence_in_Urine_by_Test_ strip Ketones_Mass_volume_in unknown 23601258 unknown unknown unknown _Urine_by_Test_strip Glucose_Mass_volume_in unknown 31164002 unknown unknown unknown _Urine_by_Test_strip Color_of_Urine unknown 73761243 unknown unknown unknown Bilirubin.total_Presen unknown 51673807 unknown unknown unknown ce_in_Urine_by_Test_str ip Appearance_of_Urine unknown 17495990 unknown unknown unk nown culture_status unknown 79709532 unknown unknown unknown urinalysis_routine unknown 08670949 unknown unknown unkn own appearance_urine unknown 04784686 unknown unknown unknow n leukocyte_esterase_uri unknown 66754599 unknown unknown unknown ne_by_dipstick urobilinogen_urine_sem unknown 97180675 unknown unknown unknown iquantitative_dipstick_ specific_gravity_urine unknown 66407778 unknown unknown unknown pH_urine_semiquantitat unknown 53745725 unknown unknown unknown eric nitrite_urine_semiquan unknown 68837853 unknown unknown unknown titative ketones_urine_by_test_ unknown 26079309 unknown unknown unknown strip bilirubin_urine unknown 56140451 unknown unknown unknown urine_color unknown 51110900 unknown unknown unknown human_chorionic_gonado unknown 33077937 unknown unknown unknown tropin_urine_qualitativ e_urine_pregnancy_test_ Choriogonadotropin_pre unknown 46046170 unknown unknown unknown gnancy_test_Presence_in _Urine Albumin_Presence_in_Ur unknown 66569513 unknown unknown unknown ine RBC_urine_dipstick unknown [id number] unknown unknown unkn own Erythrocytes_area_in_U unknown 13158816 unknown unknown unknown rine_sediment_by_Micros copy_high_power_field glucose_urine_semiquan unknown 89648412 unknown unknown unknown titative protein_urine_semiquan unknown 12883097 unknown unknown unknown titative_dipstick_ Urine_HCG_QC_Result_CL unknown 31960855 unknown unknown unknown IA_Waived_ Urine_HCG_Exp_Date_CLI unknown [id number] unknown unknown unknown A_Waived_ Urine_HCG_Lot_Number_C unknown 03862475 unknown unknown unknown LIA_Waived_ DIPSTICK_URINE_STRIP_L unknown [id number] unknown unknown unknown OT_NUMBER Urobilinogen_Presence_ unknown 26837283 unknown unknown unknown in_Urine_by_Test_strip Specific_gravity_of_Ur unknown 17512883 unknown unknown unknown ine_by_Test_strip pH_of_Urine_by_Test_st unknown 24901871 unknown unknown unknown rip Nitrite_Presence_in_Ur unknown 94163381 unknown unknown unknown ine_by_Test_strip Leukocyte_esterase_Pre unknown 65113987 unknown unknown unknown sence_in_Urine_by_Test_ strip Ketones_Mass_volume_in unknown 73976116 unknown unknown unknown _Urine_by_Test_strip Glucose_Mass_volume_in unknown 40807196 unknown unknown unknown _Urine_by_Test_strip Color_of_Urine unknown 17889850 unknown unknown unknown Bilirubin.total_Presen unknown 16030205 unknown unknown unknown ce_in_Urine_by_Test_str ip Appearance_of_Urine unknown 82900904 unknown unknown unk nown culture_status unknown 50504727 unknown unknown unknown urinalysis_routine unknown 80791610 unknown unknown unkn own appearance_urine unknown 52599988 unknown unknown unknow n leukocyte_esterase_uri unknown 32655929 unknown unknown unknown ne_by_dipstick urobilinogen_urine_sem unknown 91900801 unknown unknown unknown iquantitative_dipstick_ specific_gravity_urine unknown 25759712 unknown unknown unknown pH_urine_semiquantitat unknown 06213771 unknown unknown unknown eric nitrite_urine_semiquan unknown 53030185 unknown unknown unknown titative ketones_urine_by_test_ unknown 94739800 unknown unknown unknown strip bilirubin_urine unknown 33322263 unknown unknown unknown urine_color unknown 78620832 unknown unknown unknown human_chorionic_gonado unknown 26575189 unknown unknown unknown tropin_urine_qualitativ e_urine_pregnancy_test_ Choriogonadotropin_pre unknown 59123315 unknown unknown unknown gnancy_test_Presence_in _Urine Albumin_Presence_in_Ur unknown 65845478 unknown unknown unknown ine RBC_urine_dipstick unknown 89385728 unknown unknown unkn own Erythrocytes_area_in_U unknown 35532532 unknown unknown unknown rine_sediment_by_Micros copy_high_power_field glucose_urine_semiquan unknown 18695968 unknown unknown unknown titative protein_urine_semiquan unknown 22844708 unknown unknown unknown titative_dipstick_ Urine_HCG_QC_Result_CL unknown 36784110 unknown unknown unknown IA_Waived_ Urine_HCG_Exp_Date_CLI unknown 35310786 unknown unknown unknown A_Waived_ Urine_HCG_Lot_Number_C unknown 94173466 unknown unknown unknown LIA_Waived_ DIPSTICK_URINE_STRIP_L unknown [id number] unknown unknown unknown OT_NUMBER Urobilinogen_Presence_ unknown 41004468 unknown unknown unknown in_Urine_by_Test_strip Specific_gravity_of_Ur unknown 97056971 unknown unknown unknown ine_by_Test_strip pH_of_Urine_by_Test_st unknown 29547331 unknown unknown unknown rip Nitrite_Presence_in_Ur unknown 07406242 unknown unknown unknown ine_by_Test_strip Leukocyte_esterase_Pre unknown 92519306 unknown unknown unknown sence_in_Urine_by_Test_ strip Ketones_Mass_volume_in unknown 90505566 unknown unknown unknown _Urine_by_Test_strip Glucose_Mass_volume_in unknown 30055123 unknown unknown unknown _Urine_by_Test_strip Color_of_Urine unknown 50928273 unknown unknown unknown Bilirubin.total_Presen unknown 15784492 unknown unknown unknown ce_in_Urine_by_Test_str ip Appearance_of_Urine unknown 60768365 unknown unknown unk nown culture_status unknown 44757910 unknown unknown unknown urinalysis_routine unknown 69629237 unknown unknown unkn own appearance_urine unknown 19820114 unknown unknown unknow n leukocyte_esterase_uri unknown 06099808 unknown unknown unknown ne_by_dipstick urobilinogen_urine_sem unknown 02073611 unknown unknown unknown iquantitative_dipstick_ specific_gravity_urine unknown 10685890 unknown unknown unknown pH_urine_semiquantitat unknown 91910124 unknown unknown unknown eric nitrite_urine_semiquan unknown 85724413 unknown unknown unknown titative ketones_urine_by_test_ unknown 71283896 unknown unknown unknown strip bilirubin_urine unknown 52696012 unknown unknown unknown urine_color unknown 50817251 unknown unknown unknown human_chorionic_gonado unknown 45891178 unknown unknown unknown tropin_urine_qualitativ e_urine_pregnancy_test_ Choriogonadotropin_pre unknown 28649162 unknown unknown unknown gnancy_test_Presence_in _Urine Albumin_Presence_in_Ur unknown 96799162 unknown unknown unknown ine RBC_urine_dipstick unknown 29248453 unknown unknown unkn own Erythrocytes_area_in_U unknown 38157756 unknown unknown unknown rine_sediment_by_Micros copy_high_power_field glucose_urine_semiquan unknown 50183685 unknown unknown unknown titative protein_urine_semiquan unknown 03478159 unknown unknown unknown titative_dipstick_ Urine_HCG_QC_Result_CL unknown 14401584 unknown unknown unknown IA_Waived_ Urine_HCG_Exp_Date_CLI unknown 01986775 unknown unknown unknown A_Waived_ Urine_HCG_Lot_Number_C unknown 99197025 unknown unknown unknown LIA_Waived_ DIPSTICK_URINE_STRIP_L unknown 26528692 unknown unknown unknown OT_NUMBER Urobilinogen_Presence_ unknown 21385534 unknown unknown unknown in_Urine_by_Test_strip Specific_gravity_of_Ur unknown 99649380 unknown unknown unknown ine_by_Test_strip pH_of_Urine_by_Test_st unknown 48597191 unknown unknown unknown rip Nitrite_Presence_in_Ur unknown 32547783 unknown unknown unknown ine_by_Test_strip Leukocyte_esterase_Pre unknown 20297762 unknown unknown unknown sence_in_Urine_by_Test_ strip Ketones_Mass_volume_in unknown 24244915 unknown unknown unknown _Urine_by_Test_strip Glucose_Mass_volume_in unknown 78872891 unknown unknown unknown _Urine_by_Test_strip Color_of_Urine unknown 00855260 unknown unknown unknown Bilirubin.total_Presen unknown 95504282 unknown unknown unknown ce_in_Urine_by_Test_str ip Appearance_of_Urine unknown 27875747 unknown unknown unk nown culture_status unknown 49167228 unknown unknown unknown urinalysis_routine unknown 25790382 unknown unknown unkn own appearance_urine unknown 70540548 unknown unknown unknow n leukocyte_esterase_uri unknown 18623215 unknown unknown unknown ne_by_dipstick urobilinogen_urine_sem unknown 49077570 unknown unknown unknown iquantitative_dipstick_ specific_gravity_urine unknown 10680299 unknown unknown unknown pH_urine_semiquantitat unknown 72237369 unknown unknown unknown eric nitrite_urine_semiquan unknown 40193353 unknown unknown unknown titative ketones_urine_by_test_ unknown 40431895 unknown unknown unknown strip bilirubin_urine unknown 93530873 unknown unknown unknown urine_color unknown 54923887 unknown unknown unknown human_chorionic_gonado unknown 35876253 unknown unknown unknown tropin_urine_qualitativ e_urine_pregnancy_test_ Choriogonadotropin_pre unknown 74979333 unknown unknown unknown gnancy_test_Presence_in _Urine Albumin_Presence_in_Ur unknown 74238759 unknown unknown unknown ine RBC_urine_dipstick unknown 87666318 unknown unknown unkn own Erythrocytes_area_in_U unknown 62062887 unknown unknown unknown rine_sediment_by_Micros copy_high_power_field glucose_urine_semiquan unknown 01061996 unknown unknown unknown titative protein_urine_semiquan unknown 61489375 unknown unknown unknown titative_dipstick_ Urine_HCG_QC_Result_CL unknown 28100628 unknown unknown unknown IA_Waived_ Urine_HCG_Exp_Date_CLI unknown 83046959 unknown unknown unknown A_Waived_ Urine_HCG_Lot_Number_C unknown 67198044 unknown unknown unknown LIA_Waived_ DIPSTICK_URINE_STRIP_L unknown 22510447 unknown unknown unknown OT_NUMBER Urobilinogen_Presence_ unknown 97537433 unknown unknown unknown in_Urine_by_Test_strip Specific_gravity_of_Ur unknown 25131987 unknown unknown unknown ine_by_Test_strip pH_of_Urine_by_Test_st unknown 30171070 unknown unknown unknown rip Nitrite_Presence_in_Ur unknown 65076748 unknown unknown unknown ine_by_Test_strip Leukocyte_esterase_Pre unknown 15135727 unknown unknown unknown sence_in_Urine_by_Test_ strip Ketones_Mass_volume_in unknown 37831782 unknown unknown unknown _Urine_by_Test_strip Glucose_Mass_volume_in unknown 13286160 unknown unknown unknown _Urine_by_Test_strip Color_of_Urine unknown 30914686 unknown unknown unknown Bilirubin.total_Presen unknown 51151209 unknown unknown unknown ce_in_Urine_by_Test_str ip Appearance_of_Urine unknown 46494216 unknown unknown unk nown culture_status unknown 62837342 unknown unknown unknown urinalysis_routine unknown 67292310 unknown unknown unkn own appearance_urine unknown 91311738 unknown unknown unknow n leukocyte_esterase_uri unknown 58961453 unknown unknown unknown ne_by_dipstick urobilinogen_urine_sem unknown 92439552 unknown unknown unknown iquantitative_dipstick_ specific_gravity_urine unknown 66684572 unknown unknown unknown pH_urine_semiquantitat unknown 38920708 unknown unknown unknown eric nitrite_urine_semiquan unknown 34213125 unknown unknown unknown titative ketones_urine_by_test_ unknown 36405597 unknown unknown unknown strip bilirubin_urine unknown 77297340 unknown unknown unknown urine_color unknown 92418764 unknown unknown unknown human_chorionic_gonado unknown 87596229 unknown unknown unknown tropin_urine_qualitativ e_urine_pregnancy_test_ Choriogonadotropin_pre unknown 27972954 unknown unknown unknown gnancy_test_Presence_in _Urine Albumin_Presence_in_Ur unknown 54812890 unknown unknown unknown ine RBC_urine_dipstick unknown 52910180 unknown unknown unkn own Erythrocytes_area_in_U unknown 04898319 unknown unknown unknown rine_sediment_by_Micros copy_high_power_field glucose_urine_semiquan unknown 97568827 unknown unknown unknown titative protein_urine_semiquan unknown 32308681 unknown unknown unknown titative_dipstick_ Urine_HCG_QC_Result_CL unknown 14464161 unknown unknown unknown IA_Waived_ Urine_HCG_Exp_Date_CLI unknown 05145804 unknown unknown unknown A_Waived_ Urine_HCG_Lot_Number_C unknown 29312649 unknown unknown unknown LIA_Waived_ DIPSTICK_URINE_STRIP_L unknown 52873117 unknown unknown unknown OT_NUMBER Urobilinogen_Presence_ unknown 95353636 unknown unknown unknown in_Urine_by_Test_strip Specific_gravity_of_Ur unknown 13742867 unknown unknown unknown ine_by_Test_strip pH_of_Urine_by_Test_st unknown 35627982 unknown unknown unknown rip Nitrite_Presence_in_Ur unknown 74494485 unknown unknown unknown ine_by_Test_strip Leukocyte_esterase_Pre unknown 34718106 unknown unknown unknown sence_in_Urine_by_Test_ strip Ketones_Mass_volume_in unknown 81341148 unknown unknown unknown _Urine_by_Test_strip Glucose_Mass_volume_in unknown 58689905 unknown unknown unknown _Urine_by_Test_strip Color_of_Urine unknown 01183674 unknown unknown unknown Bilirubin.total_Presen unknown 25614078 unknown unknown unknown ce_in_Urine_by_Test_str ip Appearance_of_Urine unknown 60376499 unknown unknown unk nown culture_status unknown 08384653 unknown unknown unknown urinalysis_routine unknown 98636051 unknown unknown unkn own appearance_urine unknown 97234468 unknown unknown unknow n leukocyte_esterase_uri unknown 23549344 unknown unknown unknown ne_by_dipstick urobilinogen_urine_sem unknown 67173565 unknown unknown unknown iquantitative_dipstick_ specific_gravity_urine unknown 85501333 unknown unknown unknown pH_urine_semiquantitat unknown 53866164 unknown unknown unknown eric nitrite_urine_semiquan unknown 01424579 unknown unknown unknown titative ketones_urine_by_test_ unknown 58721797 unknown unknown unknown strip bilirubin_urine unknown 24785569 unknown unknown unknown urine_color unknown 51748336 unknown unknown unknown human_chorionic_gonado unknown 76275865 unknown unknown unknown tropin_urine_qualitativ e_urine_pregnancy_test_ Choriogonadotropin_pre unknown 57258569 unknown unknown unknown gnancy_test_Presence_in _Urine Albumin_Presence_in_Ur unknown 78618883 unknown unknown unknown ine RBC_urine_dipstick unknown 04135736 unknown unknown unkn own Erythrocytes_area_in_U unknown 92880816 unknown unknown unknown rine_sediment_by_Micros copy_high_power_field glucose_urine_semiquan unknown 42880205 unknown unknown unknown titative protein_urine_semiquan unknown 28827171 unknown unknown unknown titative_dipstick_ Urine_HCG_QC_Result_CL unknown 15732711 unknown unknown unknown IA_Waived_ Urine_HCG_Exp_Date_CLI unknown 25071986 unknown unknown unknown A_Waived_ Urine_HCG_Lot_Number_C unknown 20589896 unknown unknown unknown LIA_Waived_ DIPSTICK_URINE_STRIP_L unknown 85554796 unknown unknown unknown OT_NUMBER facility observation status value reference units lab abnor mal line range code notes [facility] THYROID_STIM unknown 0.51566 unknown m[iU] rTSH unkno wn unknown Clinic ULATING_HORMO /mL [facility] TSH unknown 0.18640 unknown m[iU] _90820 unknown un known Clinic /mL [facility] urea_nitroge unknown 18 unknown mg/dL _9 unknow n unknown Clinic n_blood [facility] Erythrocytes unknown 4.12 10 unknown _789-8 unkno wn unknown Clinic _volume_in_Bl 6/UL Primary ood_by_Automa Care & ted_count [facility] Erythrocyte_ unknown 14.1 unknown % _788-0 unknow n unknown Clinic distribution_ Primary width_Ratio_b Care & y_Automated_c [facility] ount [facility] MCV_Entitic_ unknown 93.0 unknown fL _787-2 unknow n unknown Clinic volume_by_Aut Primary omated_count [facility] MCH_Entitic_ unknown 31.1 unknown pg _785-6 unknow n unknown Clinic mass_by_Autom Primary ated_count [facility] Platelets_vo unknown 323 10 unknown _777-3 unknow n unknown Clinic lume_in_Blood 3/UL Primary _by_Automated Care & _count [facility] Platelet_mea unknown 10.7 unknown fL _776-5 unknow n unknown Clinic n_volume_Enti Primary tic_volume_in Care & _Blood_by_Ree [facility] s-Deondre [facility] neutrophil_c unknown 11.3 10 unknown _752-6 unkno wn unknown Clinic ount_blood 3/UL [facility] monocyte_cou unknown 0.4 10 unknown _743-5 unknow n unknown Clinic nt_blood 3/UL [facility] lymphocyte_c unknown 1.4 10 unknown _732-8 unknow n unknown Clinic ount_blood 3/UL [facility] Hemoglobin_M unknown 12.8 unknown g/dL _718-7 unknow n unknown Clinic ass_volume_in Primary _Blood [facility] eosinophil_c unknown 0.6 10 unknown _712-0 unknow n unknown Clinic ount_blood 3/UL [facility] Basophils_vo unknown 0.1 10 unknown _705-4 unknow n unknown Clinic lume_in_Blood 3/UL Primary _by_Manual_co Care [facility] unt [facility] leukocyte_co unknown 13.9 X10 unknown _68 unkn own unknown Clinic unt_blood 3/UL [facility] erythrocyte_ unknown 4.12 10 unknown _67 unkno wn unknown Clinic RBC_count 6/UL [facility] Leukocytes_v unknown 13.9 X10 unknown _6690-2 unk nown unknown Clinic olume_in_Bloo 3/UL Primary d_by_Automate Care & d_count [facility] Glomerular_F unknown 60 unknown mL/mi _66455 unknow n unknown Clinic iltration_rat n [facility] platelet_cou unknown 323 10 unknown _66 unknow n unknown Clinic nt 3/UL [facility] hemoglobin_b unknown 12.8 unknown g/dL _65 unknow n unknown Clinic lood [facility] hematocrit_b unknown 38.3 unknown % _64 unknow n unknown Clinic lood [facility] potassium_bl unknown 3.6 unknown meq/L _6298-4 unkno wn unknown Clinic ood [facility] vitamin_b12_ unknown 879 unknown pg/mL _5585 unknow n unknown Clinic serum [facility] Glomerular_fi unknown 60 unknown mL/mi _48642- unkno wn unknown Clinic ltration_rate n 3 Primary _1.73_sq_M.pr Care & edicted_among Ancillary _non-blacks_V Services olume_Rate_Ar [facility] ea_in_Serum_P lasma_or_Bloo d_by_Creatini ne-based_form ula_MDRD_ [facility] Hematocrit_V unknown 38.3 unknown % _4544-3 unkno wn unknown Clinic olume_Fractio Primary n_of_Blood_by Care & _Automated_co [facility] unt [facility] bilirubin_se unknown 0.5 unknown mg/dL _43 unknow n unknown Clinic rum_total [facility] alanine_amin unknown 38 unknown U/L _40 unknow n unknown Clinic otransferase_ Primary SGPT_serum [facility] carbon_dioxi unknown 24 unknown mmol/ _3962 unknow n unknown Clinic de_serum_tota L [facility] aspartate_am unknown 21 unknown U/L _39 unknow n unknown Clinic inotransferas Primary e_SGOT_serum [facility] protein_tota unknown 6.9 unknown g/dL _36 unknow n unknown Clinic l_serum [facility] blood_glucos unknown 116 unknown mg/dL _3565 unknow n unknown Clinic e [facility] potassium_bl unknown 3.6 unknown meq/L _3483 unknow n unknown Clinic ood [facility] mean_corpusc unknown 93.0 unknown fL _315 unknow n unknown Clinic ular_volume_R [facility] Urea_nitroge unknown 18 unknown mg/dL _3094-0 unkno wn unknown Clinic n_Mass_volume Primary _in_Serum_or_ Care & Plasma [facility] globulin_ser unknown 3.1 unknown _3059 unknow n unknown Clinic um [facility] alkaline_pho unknown 50 unknown U/L _3 unknow n unknown Clinic sphatase_seru [facility] m [facility] Sodium_Moles unknown 137 unknown mmol/ _2951-2 unkno wn unknown Clinic _volume_in_Se L Primary rum_or_Plasma [facility] Protein_Mass unknown 6.9 unknown g/dL _2885-2 unkno wn unknown Clinic _volume_in_Se Primary rum_or_Plasma [facility] eosinophil_c unknown 0.6 10 unknown _285 unknow n unknown Clinic ount_blood 3/UL [facility] anion_gap_se unknown 10.0 unknown _279 unknow n unknown Clinic rum [facility] mean_platele unknown 10.7 unknown fL _2784 unknow n unknown Clinic t_volume [facility] C-reactive_p unknown < 1.0 unknown _2704 unknow n unknown Clinic rotein_serum mg/dL [facility] basophil_cou unknown 0.1 10 unknown _2427 unknow n unknown Clinic nt_blood 3/UL [facility] monocyte_cou unknown 0.4 10 unknown _2422 unknow n unknown Clinic nt_blood 3/UL [facility] lymphocyte_c unknown 1.4 10 unknown _2420 unknow n unknown Clinic ount_blood 3/UL [facility] neutrophil_c unknown 11.3 10 unknown _2418 unkno wn unknown Clinic ount_blood 3/UL [facility] Glucose_Mass unknown 116 unknown mg/dL _2345-7 unkno wn unknown Clinic _volume_in_Se Primary rum_or_Plasma [facility] Globulin_Mas unknown 3.1 unknown _6-6 unkno wn unknown Clinic s_volume_in_S [facility] lizzeth [facility] Creatinine_M unknown 1.0 unknown mg/dL _0-0 unkno wn unknown Clinic ass_volume_in Primary _Serum_or_Pla Care [facility] sma [facility] Cobalamin_Vi unknown 879 unknown pg/mL _2131- unkno wn unknown Clinic tamin_B12_Mas Primary s_volume_in_S Care & erum_or_Plasm [facility] a [facility] Chloride_Mol unknown 103 unknown mmol/ _2074-0 unkno wn unknown Clinic es_volume_in_ L Primary Serum_or_Plas Care & ma [facility] carbon_dioxi unknown 24 unknown mmol/ _2027- unkno wn unknown Clinic de_serum_tota L [facility] l [facility] Calcium_Mole unknown 8.4 unknown mg/dL _1999- unkno wn unknown Clinic s_volume_in_S Primary erum_or_Plasm [facility] a [facility] albumin_seru unknown 3.8 unknown g/dL _2 unknow n unknown Clinic m [facility] C_reactive_p unknown < 1.0 unknown _1987- unkno wn unknown Clinic rotein_Mass_v mg/dL Primary olume_in_Seru Care & m_or_Plasma [facility] Bilirubin.to unknown 0.5 unknown mg/dL _1974- unkno wn unknown Clinic tal_Mass_volu Primary me_in_Serum_o Care & r_Plasma [facility] Aspartate_am unknown 21 unknown U/L _1920-8 unkno wn unknown Clinic inotransferas Primary e_Enzymatic_a Care & ctivity_volum Ancillary e_in_Serum_or Services _Plasma [facility] Anion_gap_4_ unknown 10.0 unknown _1863-0 unkno wn unknown Clinic in_Serum_or_P Primary lasma Care & [facility] creatinine_s unknown 1.0 unknown mg/dL _18 unknow n unknown Clinic lizzeth [facility] Alkaline_pho unknown 50 unknown U/L _1783-0 unkno wn unknown Clinic sphatase_Enzy Primary matic_activit Care & y_volume_in_B Ancillary lood Services [facility] Albumin_Glob unknown 1.2 unknown _1759-0 unkno wn unknown Clinic ulin_Mass_Rat Primary io_in_Serum_o Care & r_Plasma [facility] Albumin_Mass unknown 3.8 unknown g/dL _1751-7 unkno wn unknown Clinic _volume_in_Se Primary rum_or_Plasma Care [facility] Alanine_amin unknown 38 unknown U/L _1742-6 unkno wn unknown Clinic otransferase_ Primary Enzymatic_act Care & ivity_volume_ Ancillary in_Serum_or_P Services lasma [facility] mean_corpusc unknown 33.4 unknown g/dL _17029 unknow n unknown Clinic ular_hemoglob Primary in_concentrat Care & ion_rbc [facility] sodium_serum unknown 137 unknown mmol/ _159 unknow n unknown Clinic L [facility] albumin_glob unknown 1.2 unknown _146 unknow n unknown Clinic ulin_ratio_se Primary rum [facility] chloride_ser unknown 103 unknown mmol/ _13 unknow n unknown Clinic um L [facility] Thyrotropin_ unknown 0.95832 unknown m[iU] _11579- unkn own unknown Clinic Units_volume_ /mL 0 Primary in_Serum_or_P Care & lasma_by_Dete Ancillary ction_limit_l Services t_0.05_mIU_L [facility] calcium_seru unknown 8.4 unknown mg/dL _11 unknow n unknown Clinic m [facility] mean_corpusc unknown 31.1 unknown pg _1031 unknow n unknown Clinic ular_hemoglob Primary in_RBC [facility] red_blood_ce unknown 14.1 unknown % _1030 unknow n unknown Clinic ll_distributi Primary on_width [facility] T unknown 13.9 X10 unknown WBC unknown u nkno Clinic 3/UL [facility] T unknown 0.31083 unknown m[iU] TSH unknown un known Clinic /mL [facility] T unknown 0.5 unknown mg/dL TOTAL_B unknown un known Clinic OUMAR [facility] T unknown 14.1 unknown % [facility] T unknown 4.12 10 unknown RBC unknown un known Clinic 6/UL [facility] T unknown 6.9 unknown g/dL PRO_TOT unknown un known Clinic AL [facility] T unknown 323 10 [facility] NEUTROPHILS_ unknown 11.3 10 unknown NE_ unkno wn unknown Clinic AUTO_ 3/UL [facility] T unknown 11.3 10 unknown NEUT_AU unknown u [facility] Clinic 3/UL TO_ [facility] T unknown 137 unknown mmol/ NA unknown unk [facility] L [facility] T unknown 10.7 unknown fL MPV unknown [facility] MONOCYTES_AU unknown 0.4 10 unknown MO_ unknow n unknown Clinic TO_ 3/UL [facility] T unknown 0.4 10 unknown MONO_AU unknown un known Clinic 3/UL TO_ [facility] T unknown 93.0 unknown fL [facility] T unknown 33.4 unknown g/dL [facility] T unknown 31.1 unknown pg MCH unknown [facility] LYMPHOCYTES_ unknown 1.4 10 unknown LY_ unknow n unknown Clinic AUTO_ 3/UL [facility] T unknown 1.4 10 unknown LYMPH_A unknown un known Clinic 3/UL UTO_ [facility] T unknown 3.6 unknown meq/L K unknown [facility] T unknown 12.8 unknown g/dL HGB unknown [facility] T unknown 38.3 unknown % HCT unknown [facility] T unknown 116 unknown mg/dL GLU unknown [facility] T unknown 3.1 unknown GLOB unknown [facility] T unknown 60 unknown mL/mi GFR_-_M unknown un known Clinic n DRD [facility] GFR_-_MDRD unknown 60 unknown mL/mi GFR unknown unknown Clinic n [facility] T unknown 10.0 unknown GAP unknown [facility] EOSINOPHILS_ unknown 0.6 10 unknown EO_ unknow n unknown Clinic AUTO_ 3/UL [facility] T unknown 0.6 10 unknown EOS_AUT unknown un known Clinic 3/UL O_ [facility] RCC_-_L-RDIB unknown < 1.0 unknown CRP_[facility] unkno wn unknown Clinic TIVE_PROTEIN mg/dL _ [facility] T unknown < 1.0 unknown CRP unknown [facility] mg/dL [facility] T unknown 1.0 unknown mg/dL CREAT unknown [facility] T unknown 24 unknown mmol/ CO2 unknown [facility] L [facility] T unknown 103 unknown mmol/ CL unknown [facility] L [facility] T unknown 8.4 unknown mg/dL CA unknown unk nown Clinic [facility] T unknown 18 unknown mg/dL BUN unknown unk nown Clinic [facility] BILIRUBIN_TO unknown 0.5 unknown mg/dL BILIT unknow n unknown Clinic EDMUNDO [facility] BASOPHILS_AU unknown 0.1 10 unknown BA_ unknow n unknown Clinic TO_ 3/UL [facility] T unknown 0.1 10 unknown BASO_AU unknown un known Clinic 3/UL TO_ [facility] T unknown 879 unknown pg/mL B12 unknown unk now Clinic [facility] T unknown 1.2 unknown A_G_RAT unknown un known Clinic IO [facility] T unknown 21 unknown U/L AST unknown unk now Clinic [facility] T unknown 38 unknown U/L ALT_SGP unknown un known Clinic T_ [facility] ALT_ALANINE_ unknown 38 unknown U/L ALT unknow n unknown Clinic AMINOTRANSFER Primary ASE Care & [facility] ALKALINE_PHO unknown 50 unknown U/L ALP unknow n unknown Clinic SPHATASE [facility] T unknown 50 unknown U/L ALK_PHO unknown un known Clinic S [facility] T unknown 3.8 unknown g/dL ALB unknown unk now Clinic [facility] ALBUMIN_GLOB unknown 1.2 unknown AGRATIO unkno wn unknown Clinic ULIN_RATIO [facility] THYROID_STIM unknown 0.53826 unknown m[iU] rTSH unkno wn unknown Clinic ULATING_HORMO /mL Primary NE Care & [facility] TSH unknown 0.46183 unknown m[iU] _90820 unknown un known Clinic /mL [facility] urea_nitroge unknown 18 unknown mg/dL _9 unknow n unknown Clinic n_blood [facility] Erythrocytes unknown 4.12 10 unknown _789-8 unkno wn unknown Clinic _volume_in_Bl 6/UL Primary ood_by_Automa Care & ted_count [facility] Erythrocyte_ unknown 14.1 unknown % _788-0 unknow n unknown Clinic distribution_ Primary width_Ratio_b Care & y_Automated_c Ancillary ount Services [facility] MCV_Entitic_ unknown 93.0 unknown fL _787-2 unknow n unknown Clinic volume_by_Aut Primary omated_count Care & [facility] MCH_Entitic_ unknown 31.1 unknown pg _785-6 unknow n unknown Clinic mass_by_Autom Primary ated_count Care & [facility] Platelets_vo unknown 323 10 unknown _777-3 unknow n unknown Clinic lume_in_Blood 3/UL Primary _by_Automated Care & _count [facility] Platelet_mea unknown 10.7 unknown fL _776-5 unknow n unknown Clinic n_volume_Enti Primary tic_volume_in Care & _Blood_by_Ree Ancillary s-Deondre Services [facility] neutrophil_c unknown 11.3 10 unknown _752-6 unkno wn unknown Clinic ount_blood 3/UL Primary [facility] monocyte_cou unknown 0.4 10 unknown _743-5 unknow n unknown Clinic nt_blood 3/UL Primary [facility] lymphocyte_c unknown 1.4 10 unknown _732-8 unknow n unknown Clinic ount_blood 3/UL [facility] Hemoglobin_M unknown 12.8 unknown g/dL _718-7 unknow n unknown Clinic ass_volume_in Primary _Blood Care & [facility] eosinophil_c unknown 0.6 10 unknown _712-0 unknow n unknown Clinic ount_blood 3/UL [facility] Basophils_vo unknown 0.1 10 unknown _705-4 unknow n unknown Clinic lume_in_Blood 3/UL Primary _by_Manual_co Care & unt [facility] leukocyte_co unknown 13.9 X10 unknown _68 unkn own unknown Clinic unt_blood 3/UL [facility] erythrocyte_ unknown 4.12 10 unknown _67 unkno wn unknown Clinic RBC_count 6/UL [facility] Leukocytes_v unknown 13.9 X10 unknown _6690-2 unk nown unknown Clinic olume_in_Bloo 3/UL Primary d_by_Automate Care & d_count [facility]illary [facility] Glomerular_F unknown 60 unknown mL/mi _66455 unknow n unknown Clinic iltration_rat n Primary e [facility] platelet_cou unknown 323 10 unknown _66 unknow n unknown Clinic nt 3/UL Primary [facility] hemoglobin_b unknown 12.8 unknown g/dL _65 unknow n unknown Clinic lood [facility] hematocrit_b unknown 38.3 unknown % _64 unknow n unknown Clinic lood [facility] potassium_bl unknown 3.6 unknown meq/L _6298-4 unkno wn unknown Clinic ood [facility] vitamin_b12_ unknown 879 unknown pg/mL _5585 unknow n unknown Clinic serum [facility] Glomerular_fi unknown 60 unknown mL/mi _48642- unkno wn unknown Clinic ltration_rate n 3 Primary _1.73_sq_M.pr Care & edicted_among Ancillary _non-blacks_V Services olume_Rate_Ar [facility] ea_in_Serum_P lasma_or_Bloo d_by_Creatini ne-based_form ula_MDRD_ [facility] Hemoglobin_A unknown 5.5 unknown % _4548-4 unkno wn unknown Clinic 1c_Hemoglobin Primary _total_in_Blo Care & od_-_ [facility] Hematocrit_V unknown 38.3 unknown % _4544-3 unkno wn unknown Clinic olume_Fractio Primary n_of_Blood_by Care & _Automated_co Ancillary unt Services [facility] bilirubin_se unknown 0.5 unknown mg/dL _43 unknow n unknown Clinic rum_total Primary [facility] alanine_amin unknown 38 unknown U/L _40 unknow n unknown Clinic otransferase_ Primary SGPT_serum Care & [facility] carbon_dioxi unknown 24 unknown mmol/ _3962 unknow n unknown Clinic de_serum_tota L Primary l [facility] aspartate_am unknown 21 unknown U/L _39 unknow n unknown Clinic inotransferas Primary e_SGOT_serum Care & [facility] protein_tota unknown 6.9 unknown g/dL _36 unknow n unknown Clinic l_serum [facility] blood_glucos unknown 116 unknown mg/dL _3565 unknow n unknown Clinic e [facility] potassium_bl unknown 3.6 unknown meq/L _3483 unknow n unknown Clinic ood [facility] mean_corpusc unknown 93.0 unknown fL _315 unknow n unknown Clinic ular_volume_R Primary BC Care & [facility] Urea_nitroge unknown 18 unknown mg/dL _3094-0 unkno wn unknown Clinic n_Mass_volume Primary _in_Serum_or_ Care & Plasma [facility] globulin_ser unknown 3.1 unknown _3059 unknow n unknown Clinic um [facility] alkaline_pho unknown 50 unknown U/L _3 unknow n unknown Clinic sphatase_seru Primary m [facility] Sodium_Moles unknown 137 unknown mmol/ _2951-2 unkno wn unknown Clinic _volume_in_Se L Primary rum_or_Plasma Care [facility] Protein_Mass unknown 6.9 unknown g/dL _2885-2 unkno wn unknown Clinic _volume_in_Se Primary rum_or_Plasma Care [facility] eosinophil_c unknown 0.6 10 unknown _285 unknow n unknown Clinic ount_blood 3/UL Primary [facility] hemoglobin_A unknown 5.5 unknown % _28 unknow n unknown Clinic 1C_blood_as_o Primary f_total_hemog Care & lobin [facility]illary [facility] anion_gap_se unknown 10.0 unknown _279 unknow n unknown Clinic rum [facility] mean_platele unknown 10.7 unknown fL _2784 unknow n unknown Clinic t_volume [facility] Glucose_mean unknown 111 unknown mg/dL _27353- unkno wn unknown Clinic _value_Mass_v 2 Primary olume_in_Bloo Care & d_Estimated_f Ancillary rom_glycated_ Services hemoglobin [facility] C-reactive_p unknown < 1.0 unknown _2704 unknow n unknown Clinic rotein_serum mg/dL Primary [facility] basophil_cou unknown 0.1 10 unknown _2427 unknow n unknown Clinic nt_blood 3/UL Primary [facility] monocyte_cou unknown 0.4 10 unknown _2422 unknow n unknown Clinic nt_blood 3/UL [facility] lymphocyte_c unknown 1.4 10 unknown _2420 unknow n unknown Clinic ount_blood 3/UL [facility] neutrophil_c unknown 11.3 10 unknown _2418 unkno wn unknown Clinic ount_blood 3/UL [facility] Glucose_Mass unknown 116 unknown mg/dL _2345-7 unkno wn unknown Clinic _volume_in_Se Primary rum_or_Plasma Care & [facility] Globulin_Mas unknown 3.1 unknown _2336-6 unkno wn unknown Clinic s_volume_in_S Primary lizzeth Care & [facility] Creatinine_M unknown 1.0 unknown mg/dL _2160-0 unkno wn unknown Clinic ass_volume_in Primary _Serum_or_Pla Care & sma [facility] Cobalamin_Vi unknown 879 unknown pg/mL _2132-9 unkno wn unknown Clinic tamin_B12_Mas Primary s_volume_in_S Care & erum_or_Plasm Ancillary a [facility] Chloride_Mol unknown 103 unknown mmol/ _5-0 unkno wn unknown Clinic es_volume_in_ L Primary Serum_or_Plas Care & ma Ancillary [facility] carbon_dioxi unknown 24 unknown mmol/ _2027-9 unkno wn unknown Clinic de_serum_tota L Primary l [facility] Calcium_Mole unknown 8.4 unknown mg/dL _2000-8 unkno wn unknown Clinic s_volume_in_S Primary erum_or_Plasm Care & a [facility] albumin_seru unknown 3.8 unknown g/dL _2 unknow n unknown Clinic m [facility] C_reactive_p unknown < 1.0 unknown _1987-07 unkno wn unknown Clinic rotein_Mass_v mg/dL Primary olume_in_Seru Care & m_or_Plasma [facility] Bilirubin.to unknown 0.5 unknown mg/dL _1974-04 unkno wn unknown Clinic tal_Mass_volu Primary me_in_Serum_o Care & r_Plasma [facility] Aspartate_am unknown 21 unknown U/L _1919-10 unkno wn unknown Clinic inotransferas Primary e_Enzymatic_a Care & ctivity_volum Ancillary e_in_Serum_or Services _Plasma [facility] Anion_gap_4_ unknown 10.0 unknown _3-0 unkno wn unknown Clinic in_Serum_or_P Primary lasma Care & [facility] Estimated_Av unknown 111 unknown mg/dL _[id number] unkno wn unknown Clinic erage_Glucose [facility] creatinine_s unknown 1.0 unknown mg/dL _18 unknow n unknown Clinic lizzeth [facility] Alkaline_pho unknown 50 unknown U/L _1783-0 unkno wn unknown Clinic sphatase_Enzy Primary matic_activit Care & y_volume_in_B Ancillary lood Services [facility] Albumin_Glob unknown 1.2 unknown _1759-0 unkno wn unknown Clinic ulin_Mass_Rat Primary io_in_Serum_o Care & r_Plasma [facility] Albumin_Mass unknown 3.8 unknown g/dL _1751-7 unkno wn unknown Clinic _volume_in_Se Primary rum_or_Plasma Care & [facility] Alanine_amin unknown 38 unknown U/L _1742-6 unkno wn unknown Clinic otransferase_ Primary Enzymatic_act Care & ivity_volume_ Ancillary in_Serum_or_P Services lasma [facility] mean_corpusc unknown 33.4 unknown g/dL _17029 unknow n unknown Clinic ular_hemoglob Primary in_concentrat Care & ion_rbc [facility] sodium_serum unknown 137 unknown mmol/ _159 unknow n unknown Clinic L [facility] albumin_glob unknown 1.2 unknown _146 unknow n unknown Clinic ulin_ratio_se Primary rum Care & [facility] chloride_ser unknown 103 unknown mmol/ _13 unknow n unknown Clinic um L [facility] Thyrotropin_ unknown 0.84285 unknown m[iU] _11579- unkn own unknown Clinic Units_volume_ /mL 0 Primary in_Serum_or_P Care & lasma_by_Dete Ancillary ction_limit_l Services t_0.05_mIU_L [facility] calcium_seru unknown 8.4 unknown mg/dL _11 unknow n unknown Clinic m [facility] mean_corpusc unknown 31.1 unknown pg _1031 unknow n unknown Clinic ular_hemoglob Primary in_RBC Care [facility] red_blood_ce unknown 14.1 unknown % _1030 unknow n unknown Clinic ll_distributi Primary on_width Care [facility] T unknown 13.9 X10 unknown WBC unknown u nknown Clinic 3/UL [facility] T unknown 0.12957 unknown m[iU] TSH unknown un known Clinic /mL [facility] T unknown 0.5 unknown mg/dL TOTAL_B unknown un known Clinic OUMAR [facility] T unknown 14.1 unknown % RDW unknown unk nown Clinic [facility] T unknown 4.12 10 unknown RBC unknown un known Clinic 6/UL [facility] T unknown 6.9 unknown g/dL PRO_TOT unknown un known Clinic AL [facility] T unknown 323 10 unknown PLT unknown unk nown Clinic 3/UL [facility] NEUTROPHILS_ unknown 11.3 10 unknown NE_ unkno wn unknown Clinic AUTO_ 3/UL [facility] T unknown 11.3 10 unknown NEUT_AU unknown u nknow Clinic 3/UL TO_ [facility] T unknown 137 unknown mmol/ NA unknown [facility] L [facility] T unknown 10.7 unknown fL MPV unknown [facility] MONOCYTES_AU unknown 0.4 10 unknown MO_ unknow n unknown Clinic TO_ 3/UL [facility] T unknown 0.4 10 unknown MONO_AU unknown un known Clinic 3/UL TO_ [facility] T unknown 93.0 unknown fL MCV unknown [facility] T unknown 33.4 unknown g/dL MCHC unknown [facility] T unknown 31.1 unknown pg MCH unknown [facility] LYMPHOCYTES_ unknown 1.4 10 unknown LY_ unknow n unknown Clinic AUTO_ 3/UL [facility] T unknown 1.4 10 unknown LYMPH_A unknown un known Clinic 3/UL UTO_ [facility] T unknown 3.6 unknown meq/L K unknown [facility] T unknown 12.8 unknown g/dL HGB unknown [facility] T unknown 38.3 unknown % HCT unknown [facility] T unknown 116 unknown mg/dL GLU unknown [facility] T unknown 3.1 unknown GLOB unknown [facility] T unknown 60 unknown mL/mi GFR_-_M unknown un known Clinic n DRD [facility] GFR_-_MDRD unknown 60 unknown mL/mi GFR unknown unknown Clinic n [facility] T unknown 10.0 unknown GAP unknown [facility] T unknown 111 unknown mg/dL EST.AVG unknown un known Clinic .GLUC [facility] EOSINOPHILS_ unknown 0.6 10 unknown EO_ unknow n unknown Clinic AUTO_ 3/UL [facility] T unknown 0.6 10 unknown EOS_AUT unknown un known Clinic 3/UL O_ [facility] ESTIMATED_AV unknown 111 unknown mg/dL EAG unknow n unknown Clinic ERAGE_GLUCOSE [facility] SCZ_-_Z-LIAH unknown < 1.0 unknown CRP_[facility] unkno wn unknown Clinic TIVE_PROTEIN mg/dL _ [facility] T unknown < 1.0 unknown CRP unknown [facility] mg/dL [facility] T unknown 1.0 unknown mg/dL CREAT unknown [facility] T unknown 24 unknown mmol/ CO2 unknown [facility] L [facility] T unknown 103 unknown mmol/ CL unknown [facility] L [facility] T unknown 8.4 unknown mg/dL CA unknown [facility] T unknown 18 unknown mg/dL BUN unknown [facility] BILIRUBIN_TO unknown 0.5 unknown mg/dL BILIT unknow n unknown Clinic EDMUNDO [facility] BASOPHILS_AU unknown 0.1 10 unknown BA_ unknow n unknown Clinic TO_ 3/UL [facility] T unknown 0.1 10 unknown BASO_AU unknown un known Clinic 3/UL TO_ [facility] T unknown 879 unknown pg/mL B12 unknown [facility] T unknown 1.2 unknown A_G_RAT unknown un known Clinic IO [facility] T unknown 21 unknown U/L AST unknown [facility] T unknown 38 unknown U/L ALT_SGP unknown un known Clinic T_ [facility] ALT_ALANINE_ unknown 38 unknown U/L ALT unknow n unknown Clinic AMINOTRANSFER Primary ASE Care & Ancillary [facility] ALKALINE_PHO unknown 50 unknown U/L ALP unknow n unknown Clinic SPHATASE Primary Care & [facility] unknown 50 unknown U/L ALK_PHO unknown un known [facility] S [facility] unknown 3.8 unknown g/dL ALB unknown unk nown Clinic [facility] ALBUMIN_GLOB unknown 1.2 unknown AGRATIO unkno wn unknown Clinic ULIN_RATIO [facility] unknown 5.5 unknown % A1c_ unknown unk nown Clinic [facility] HEMOGLOBIN_A unknown 5.5 unknown % A1c unknow n unknown Clinic 1c_ [facility] Urobilinogen unknown negative unknown _5818-0 unk nown unknown Clinic _Presence_in_ Primary Urine_by_Test Care & _strip [facility] Specific_gra unknown 1.005 unknown _5811-5 unkno wn unknown Clinic vity_of_Urine Primary _by_Test_stri Care & p [facility] pH_of_Urine_ unknown 6 unknown _5803-2 unkno wn unknown Clinic by_Test_strip [facility] Nitrite_Pres unknown negative unknown _5802-4 unk nown unknown Clinic ence_in_Urine Primary _by_Test_stri Care & p [facility] Leukocyte_es unknown negative unknown _5799-2 unk nown unknown Clinic terase_Presen Primary ce_in_Urine_b Care & y_Test_strip [facility] Ketones_Mass unknown negative unknown _5797-6 unk nown unknown Clinic _volume_in_Ur Primary ine_by_Test_s Care & trip [facility] Glucose_Mass unknown negative unknown _5792-7 unk nown unknown Clinic _volume_in_Ur Primary ine_by_Test_s Care & trip [facility] Color_of_Uri unknown yellow unknown _5778-6 unkno wn unknown Clinic ne [facility] Bilirubin.to unknown negative unknown _5770-3 unk nown unknown Clinic tal_Presence_ Primary in_Urine_by_T Care & est_strip [facility] Appearance_o unknown clear unknown _5767-9 unkno wn unknown Clinic f_Urine [facility] culture_stat unknown No unknown _51015 unknow n unknown Clinic us [facility] [...] est_ [facility] Choriogonado unknown Negative unknown _6-3 unk nown unknown Clinic tropin_pregna Primary ncy_test_Pres Care & ence_in_Urine [facility] Albumin_Pres unknown negative unknown _1753-3 unk nown unknown Clinic ence_in_Urine [facility] RBC_urine_di unknown negative unknown _170000 unk nown unknown Clinic pstick 5 [facility] Erythrocytes unknown negative unknown _13945- unk nown unknown Clinic _area_in_Urin 1 Primary e_sediment_by Care & _Microscopy_h Ancillary igh_power_fie Services ld [facility] glucose_urin unknown negative unknown _123 unkn own unknown Clinic e_semiquantit Primary ative Care & [facility] protein_urin unknown negative unknown _118 unkn own unknown Clinic e_semiquantit Primary ative_dipstic Care & k_ [facility] Urine_HCG_QC unknown Yes unknown _114942 unkno wn unknown Clinic _Result_CLIA_ Primary Waived_ Care & [facility] Urine_HCG_Ex unknown unknown _114941 un known unknown Clinic p_Date_CLIA_W 3 Primary aived_ Care & [facility] Urine_HCG_Lo unknown [id number] unknown _114940 un known unknown Clinic t_Number_CLIA 3 Primary _Waived_ Care & [facility] DIPSTICK_URI unknown [id number] unknown _101400 unkno wn unknown Clinic NE_STRIP_LOT_ Primary NUMBER Care & [facility] Urobilinogen unknown negative unknown _5818-0 unk nown unknown Clinic _Presence_in_ Primary Urine_by_Test Care & _strip [facility] Specific_gra unknown 1.005 unknown _5811-5 unkno wn unknown Clinic vity_of_Urine Primary _by_Test_stri Care & p [facility] pH_of_Urine_ unknown 6 unknown _5803-2 unkno wn unknown Clinic by_Test_strip [facility] Nitrite_Pres unknown negative unknown _5802-4 unk nown unknown Clinic ence_in_Urine Primary _by_Test_stri Care & p [facility] Leukocyte_es unknown negative unknown _5799-2 unk nown unknown Clinic terase_Presen Primary ce_in_Urine_b Care & y_Test_strip [facility] Ketones_Mass unknown negative unknown _5797-6 unk nown unknown Clinic _volume_in_Ur Primary ine_by_Test_s Care & trip [facility] Glucose_Mass unknown negative unknown _5792-7 unk nown unknown Clinic _volume_in_Ur Primary ine_by_Test_s Care & trip [facility] Color_of_Uri unknown yellow unknown _5778-6 unkno wn unknown Clinic ne [facility] Bilirubin.to unknown negative unknown _5770-3 unk nown unknown Clinic tal_Presence_ Primary in_Urine_by_T Care & est_strip [facility] Appearance_o unknown clear unknown _5767-9 unkno wn unknown Clinic f_Urine [facility] culture_stat unknown No unknown _51015 unknow n unknown Clinic us [facility] [...] est_ [facility] Choriogonado unknown Negative unknown _2106-3 unk nown unknown Clinic tropin_pregna Primary ncy_test_Pres Care & ence_in_Urine [facility] Albumin_Pres unknown negative unknown _1753-3 unk nown unknown Clinic ence_in_Urine [facility] RBC_urine_di unknown negative unknown _170000 unk nown unknown Clinic pstick 5 [facility] Erythrocytes unknown negative unknown _13945- unk nown unknown Clinic _area_in_Urin 1 Primary e_sediment_by Care & _Microscopy_h Ancillary igh_power_fie Services ld [facility] glucose_urin unknown negative unknown _123 unkn own unknown Clinic e_semiquantit Primary ative Care & [facility] protein_urin unknown negative unknown _118 unkn own unknown Clinic e_semiquantit Primary ative_dipstic Care & k_ [facility] Urine_HCG_QC unknown Yes unknown _114942 unkno wn unknown Clinic _Result_CLIA_ Primary Waived_ Care & [facility] Urine_HCG_Ex unknown unknown _114941 un known unknown Clinic p_Date_CLIA_W 3 Primary aived_ Care & [facility] Urine_HCG_Lo unknown [id number] unknown _114940 un known unknown Clinic t_Number_CLIA 3 Primary _Waived_ Care [facility] DIPSTICK_URI unknown [id number] unknown _101400 unkno wn unknown Clinic NE_STRIP_LOT_ Primary NUMBER Care & [facility] Urobilinogen unknown negative unknown _5818-0 unk nown unknown Clinic _Presence_in_ Primary Urine_by_Test Care & _strip [facility] Specific_gra unknown 1.005 unknown _5811-5 unkno wn unknown Clinic vity_of_Urine Primary _by_Test_stri Care & p [facility] pH_of_Urine_ unknown 6 unknown _5803-2 unkno wn unknown Clinic by_Test_strip [facility] Nitrite_Pres unknown negative unknown _5802-4 unk nown unknown Clinic ence_in_Urine Primary _by_Test_stri Care & p [facility] Leukocyte_es unknown negative unknown _5799-2 unk nown unknown Clinic terase_Presen Primary ce_in_Urine_b Care & y_Test_strip [facility] Ketones_Mass unknown negative unknown _5797-6 unk nown unknown Clinic _volume_in_Ur Primary ine_by_Test_s Care & trip [facility] Glucose_Mass unknown negative unknown _5792-7 unk nown unknown Clinic _volume_in_Ur Primary ine_by_Test_s Care & trip [facility] Color_of_Uri unknown yellow unknown _5778-6 unkno wn unknown Clinic ne [facility] Bilirubin.to unknown negative unknown _5770-3 unk nown unknown Clinic tal_Presence_ Primary in_Urine_by_T Care & est_strip [facility] Appearance_o unknown clear unknown _5767-9 unkno wn unknown Clinic f_Urine [facility] culture_stat unknown No unknown _51015 unknow n unknown Clinic us [facility] [...] est_ [facility] Choriogonado unknown Negative unknown _2106-3 unk nown unknown Clinic tropin_pregna Primary ncy_test_Pres Care & ence_in_Urine [facility] Albumin_Pres unknown negative unknown _1753-3 unk nown unknown Clinic ence_in_Urine [facility] RBC_urine_di unknown negative unknown _170000 unk nown unknown Clinic pstick 5 [facility] Erythrocytes unknown negative unknown _13945- unk nown unknown Clinic _area_in_Urin 1 Primary e_sediment_by Care & _Microscopy_h Ancillary igh_power_fie Services ld [facility] glucose_urin unknown negative unknown _123 unkn own unknown Clinic e_semiquantit Primary ative Care & [facility] protein_urin unknown negative unknown _118 unkn own unknown Clinic e_semiquantit Primary ative_dipstic Care & k_ [facility] Urine_HCG_QC unknown Yes unknown _114942 unkno wn unknown Clinic _Result_CLIA_ Primary Waived_ Care & [facility] Urine_HCG_Ex unknown unknown _114941 un known unknown Clinic p_Date_CLIA_W 3 Primary aived_ Care & [facility] Urine_HCG_Lo unknown [id number] unknown _114940 un known unknown Clinic t_Number_CLIA 3 Primary _Waived_ Care & [facility] DIPSTICK_URI unknown [id number] unknown _101400 unkno wn unknown Clinic NE_STRIP_LOT_ Primary NUMBER Care & [facility] Urobilinogen unknown negative unknown _5818-0 unk nown unknown Clinic _Presence_in_ Primary Urine_by_Test Care & _strip [facility] Specific_gra unknown 1.005 unknown _5811-5 unkno wn unknown Clinic vity_of_Urine Primary _by_Test_stri Care & p [facility] pH_of_Urine_ unknown 6 unknown _5803-2 unkno wn unknown Clinic by_Test_strip [facility] Nitrite_Pres unknown negative unknown _5802-4 unk nown unknown Clinic ence_in_Urine Primary _by_Test_stri Care & p [facility] Leukocyte_es unknown negative unknown _5799-2 unk nown unknown Clinic terase_Presen Primary ce_in_Urine_b Care & y_Test_strip [facility] Ketones_Mass unknown negative unknown _5797-6 unk nown unknown Clinic _volume_in_Ur Primary ine_by_Test_s Care & trip [facility] Glucose_Mass unknown negative unknown _5792-7 unk nown unknown Clinic _volume_in_Ur Primary ine_by_Test_s Care & trip [facility] Color_of_Uri unknown yellow unknown _5778-6 unkno wn unknown Clinic ne [facility] Bilirubin.to unknown negative unknown _5770-3 unk nown unknown Clinic tal_Presence_ Primary in_Urine_by_T Care & est_strip [facility] Appearance_o unknown clear unknown _5767-9 unkno wn unknown Clinic f_Urine [facility] culture_stat unknown No unknown _51015 unknow n unknown Clinic us [facility] [...] est_ [facility] Choriogonado unknown Negative unknown _2106-3 unk nown unknown Clinic tropin_pregna Primary ncy_test_Pres Care & ence_in_Urine [facility] Albumin_Pres unknown negative unknown _1753-3 unk nown unknown Clinic ence_in_Urine [facility] RBC_urine_di unknown negative unknown _170000 unk nown unknown Clinic pstick 5 [facility] Erythrocytes unknown negative unknown _13945- unk nown unknown Clinic _area_in_Urin 1 Primary e_sediment_by Care & _Microscopy_h Ancillary igh_power_fie Services ld [facility] glucose_urin unknown negative unknown _123 unkn own unknown Clinic e_semiquantit Primary ative Care & [facility] protein_urin unknown negative unknown _118 unkn own unknown Clinic e_semiquantit Primary ative_dipstic Care & k_ [facility] Urine_HCG_QC unknown Yes unknown _114942 unkno wn unknown Clinic _Result_CLIA_ Primary Waived_ Care & [facility] Urine_HCG_Ex unknown unknown _114941 un known unknown Clinic p_Date_CLIA_W 3 Primary aived_ Care & [facility] Urine_HCG_Lo unknown [id number] unknown _114940 un known unknown Clinic t_Number_CLIA 3 Primary _Waived_ Care & [facility] DIPSTICK_URI unknown [id number] unknown _101400 unkno wn unknown Clinic NE_STRIP_LOT_ Primary NUMBER Care & [facility] Urobilinogen unknown negative unknown _5818-0 unk nown unknown Clinic _Presence_in_ Primary Urine_by_Test Care & _strip [facility] Specific_gra unknown 1.005 unknown _5811-5 unkno wn unknown Clinic vity_of_Urine Primary _by_Test_stri Care & p [facility] pH_of_Urine_ unknown 6 unknown _5803-2 unkno wn unknown Clinic by_Test_strip [facility] Nitrite_Pres unknown negative unknown _5802-4 unk nown unknown Clinic ence_in_Urine Primary _by_Test_stri Care & p [facility] Leukocyte_es unknown negative unknown _5799-2 unk nown unknown Clinic terase_Presen Primary ce_in_Urine_b Care & y_Test_strip [facility] Ketones_Mass unknown negative unknown _5797-6 unk nown unknown Clinic _volume_in_Ur Primary ine_by_Test_s Care & trip [facility] Glucose_Mass unknown negative unknown _5792-7 unk nown unknown Clinic _volume_in_Ur Primary ine_by_Test_s Care & trip [facility] Color_of_Uri unknown yellow unknown _5778-6 unkno wn unknown Clinic ne [facility] Bilirubin.to unknown negative unknown _5770-3 unk nown unknown Clinic tal_Presence_ Primary in_Urine_by_T Care & est_strip [facility] Appearance_o unknown clear unknown _5767-9 unkno wn unknown Clinic f_Urine [facility] culture_stat unknown No unknown _51015 unknow n unknown Clinic us [facility] [...] est_ [facility] Choriogonado unknown Negative unknown _2106-3 unk nown unknown Clinic tropin_pregna Primary ncy_test_Pres Care & ence_in_Urine [facility] Albumin_Pres unknown negative unknown _1753-3 unk nown unknown Clinic ence_in_Urine [facility] RBC_urine_di unknown negative unknown _170000 unk nown unknown Clinic pstick 5 [facility] Erythrocytes unknown negative unknown _13945- unk nown unknown Clinic _area_in_Urin 1 Primary e_sediment_by Care & _Microscopy_h Ancillary igh_power_fie Services [facility] glucose_urin unknown negative unknown _123 unkn own unknown Clinic e_semiquantit Primary ative Care & [facility] protein_urin unknown negative unknown _118 unkn own unknown Clinic e_semiquantit Primary ative_dipstic Care & k_ [facility] Urine_HCG_QC unknown Yes unknown _114942 unkno wn unknown Clinic _Result_CLIA_ Primary Waived_ Care & [facility] Urine_HCG_Ex unknown unknown _114941 un known unknown Clinic p_Date_CLIA_W 3 Primary aived_ Care & [facility] Urine_HCG_Lo unknown [id number] unknown _114940 un known unknown Clinic t_Number_CLIA 3 Primary _Waived_ Care [facility] DIPSTICK_URI unknown [id number] unknown _101400 unkno wn unknown Clinic NE_STRIP_LOT_ Primary NUMBER Care & [facility] Urobilinogen unknown negative unknown _5818-0 unk nown unknown Clinic _Presence_in_ Primary Urine_by_Test Care & _strip [facility] Specific_gra unknown 1.005 unknown _5811-5 unkno wn unknown Clinic vity_of_Urine Primary _by_Test_stri Care & p [facility] pH_of_Urine_ unknown 6 unknown _5803-2 unkno wn unknown Clinic by_Test_strip [facility] Nitrite_Pres unknown negative unknown _5802-4 unk nown unknown Clinic ence_in_Urine Primary _by_Test_stri Care & p [facility] Leukocyte_es unknown negative unknown _5799-2 unk nown unknown Clinic terase_Presen Primary ce_in_Urine_b Care & y_Test_strip [facility] Ketones_Mass unknown negative unknown _5797-6 unk nown unknown Clinic _volume_in_Ur Primary ine_by_Test_s Care & trip [facility] Glucose_Mass unknown negative unknown _5792-7 unk nown unknown Clinic _volume_in_Ur Primary ine_by_Test_s Care & trip [facility] Color_of_Uri unknown yellow unknown _5778-6 unkno wn unknown Clinic ne [facility] Bilirubin.to unknown negative unknown _5770-3 unk nown unknown Clinic tal_Presence_ Primary in_Urine_by_T Care & est_strip [facility] Appearance_o unknown clear unknown _5767-9 unkno wn unknown Clinic f_Urine [facility] culture_stat unknown No unknown _51015 unknow n unknown Clinic us [facility] [...] est_ [facility] Choriogonado unknown Negative unknown _6-3 unk nown unknown Clinic tropin_pregna Primary ncy_test_Pres Care & ence_in_Urine [facility] Albumin_Pres unknown negative unknown _1753-3 unk nown unknown Clinic ence_in_Urine [facility] RBC_urine_di unknown negative unknown _170000 unk nown unknown Clinic pstick 5 [facility] Erythrocytes unknown negative unknown _13945- unk nown unknown Clinic _area_in_Urin 1 Primary e_sediment_by Care & _Microscopy_h Ancillary igh_power_fie Services ld [facility] glucose_urin unknown negative unknown _123 unkn own unknown Clinic e_semiquantit Primary ative Care & [facility] protein_urin unknown negative unknown _118 unkn own unknown Clinic e_semiquantit Primary ative_dipstic Care & k_ [facility] Urine_HCG_QC unknown Yes unknown _114942 unkno wn unknown Clinic _Result_CLIA_ Primary Waived_ Care & [facility] Urine_HCG_Ex unknown unknown _114941 un known unknown Clinic p_Date_CLIA_W 3 Primary aived_ Care & [facility] Urine_HCG_Lo unknown [id number] unknown _114940 un known unknown Clinic t_Number_CLIA 3 Primary _Waived_ Care [facility] DIPSTICK_URI unknown [id number] unknown _101400 unkno wn unknown Clinic NE_STRIP_LOT_ Primary NUMBER Care & [facility] Urobilinogen unknown negative unknown _5818-0 unk nown unknown Clinic _Presence_in_ Primary Urine_by_Test Care & _strip [facility] Specific_gra unknown 1.005 unknown _5811-5 unkno wn unknown Clinic vity_of_Urine Primary _by_Test_stri Care & p [facility] pH_of_Urine_ unknown 6 unknown _5803-2 unkno wn unknown Clinic by_Test_strip [facility] Nitrite_Pres unknown negative unknown _5802-4 unk nown unknown Clinic ence_in_Urine Primary _by_Test_stri Care & p [facility] Leukocyte_es unknown negative unknown _5799-2 unk nown unknown Clinic terase_Presen Primary ce_in_Urine_b Care & y_Test_strip [facility] Ketones_Mass unknown negative unknown _5797-6 unk nown unknown Clinic _volume_in_Ur Primary ine_by_Test_s Care & trip [facility] Glucose_Mass unknown negative unknown _5792-7 unk nown unknown Clinic _volume_in_Ur Primary ine_by_Test_s Care & trip [facility] Color_of_Uri unknown yellow unknown _5778-6 unkno wn unknown Clinic ne [facility] Bilirubin.to unknown negative unknown _5770-3 unk nown unknown Clinic tal_Presence_ Primary in_Urine_by_T Care & est_strip [facility] Appearance_o unknown clear unknown _5767-9 unkno wn unknown Clinic f_Urine [facility] culture_stat unknown No unknown _51015 unknow n unknown Clinic us [facility] [...] Primary antitative_di Care & pstick_ [facility] specific_gra unknown 1.005 unknown _325 unknow [...] est_ [facility] Choriogonado unknown Negative unknown _6-3 unk nown unknown Clinic tropin_pregna Primary ncy_test_Pres Care & ence_in_Urine [facility] Albumin_Pres unknown negative unknown _1753-3 unk nown unknown Clinic ence_in_Urine [facility] RBC_urine_di unknown negative unknown _170000 unk nown unknown Clinic pstick 5 [facility] Erythrocytes unknown negative unknown _13945- unk nown unknown Clinic _area_in_Urin 1 Primary e_sediment_by Care & _Microscopy_h Ancillary igh_power_fie Services ld [facility] glucose_urin unknown negative unknown _123 unkn own unknown Clinic e_semiquantit Primary ative Care & [facility] protein_urin unknown negative unknown _118 unkn own unknown Clinic e_semiquantit Primary ative_dipstic Care & k_ [facility] Urine_HCG_QC unknown Yes unknown _114942 unkno wn unknown Clinic _Result_CLIA_ Primary Waived_ Care [facility] Urine_HCG_Ex unknown unknown _114941 un known unknown Clinic p_Date_CLIA_W 3 Primary aived_ Care & [facility] Urine_HCG_Lo unknown [id number] unknown _114940 un known unknown Clinic t_Number_CLIA 3 Primary _Waived_ Care [facility] DIPSTICK_URI unknown [id number] unknown _101400 unkno wn unknown Clinic NE_STRIP_LOT_ Primary NUMBER Care [facility] [...] BP_systolic 141 mm[Hg] [id number] BP_diastolic 92 mm[Hg] 20210623 temperature_standard 97.4 F 20210623 temperature_metric 36.33 C 20210623 respiration_rate 16 /min 20210623 height_standard 66 in 20210623 height_metric 167.64 cm 20210623 heart_rate 101 /min 20210623 BP_systolic 153 mm[Hg] 20210623 BP_diastolic 94 mm[Hg] 20210623 temperature_standard 97.4 F 20210623 temperature_metric 36.33 C 20210623 respiration_rate 16 /min 20210623 height_standard 66 in 20210623 height_metric 167.64 cm 20210623 heart_rate 101 /min 20210623 BP_systolic 153 mm[Hg] 20210623 BP_diastolic 94 mm[Hg]
[2021-06-25] MEDS ORDERED: SODIUM CHLORIDE 0.9% 1,000 ML IV STA (11:02)
[2021-06-25 11:16] LABS: BASOPHILS # (AUTO) 0.1 10^3/uL (0.0-0.1); BASOPHILS % (AUTO) 0.8 %; EOSINOPHILS # (AUTO) 1.3 10^3/uL (0.0-0.7); HCT - HEMATOCRIT 37.7 % (37.0-47.0); HGB - HEMOGLOBIN 12.7 g/dL (12.0-16.0); LYMPHOCYTES # (AUTO) 2.8 10^3/uL (1.5-3.5); MEAN CORPUSCULAR HEMOGLOBIN 31.2 pg (27.0-31.0); MEAN CORPUSCULAR HGB CONC 33.7 g/dL (32.0-36.0); MEAN CORPUSCULAR VOLUME 92.6 fL (81.0-99.0); MEAN PLATELET VOLUME 9.8 fL (7.9-10.8); MONOCYTES # (AUTO) 0.7 10^3/uL (0.0-1.0); NEUTROPHILS # (AUTO) 9.4 10^3/uL (1.5-6.6); NEUTROPHILS % (AUTO) 64.5 %; PLT - PLATELET COUNT 346 10^3/uL (130-450); RED BLOOD COUNT 4.07 10^6/uL (4.20-5.40); RED CELL DISTRIBUTION WIDTH 14.2 % (12.0-15.0); WHITE BLOOD COUNT 14.5 x10^3/uL (4.8-10.8)
[2021-06-25 11:17] LABS: SLIDE REVIEW? Indicated
[2021-06-25 11:31] LABS: RBC MORPHOLOGY (MULTIPLE) 1+ ANISOCYTOSIS (NORMAL)
[2021-06-25 11:34] LABS: ALBUMIN 3.9 g/dL (3.2-5.5); ALBUMIN/GLOBULIN RATIO 1.3 (1.0-2.2); BILIRUBIN,TOTAL 0.9 mg/dL (0.2-1.0); CALCIUM 8.6 mg/dL (8.5-10.3); POTASSIUM 3.3 mmol/L (3.5-5.0); TOTAL PROTEIN 6.9 g/dL (6.7-8.2)
--- NOTE | 2021-06-25 12:05 | ED Physician Documentation ---
History of Present Illness - Stated complaint Stated Complaint: SOA, POSSIBLE ALLERGIC RXN - Chief complaint Chief Complaint: Allergic Rx - History obtained from History obtained from: Patient - Additonal information Additional information: The patient comes to the emergency department for chief complaint of "reaction to my medication." Patient states that her symptoms all started when she noticed a "bug bite" on her leg a little over a week ago. She following this developed a rash, though she is not sure if it was from the bug bite or from wearing a pair of pants which had been washed and a new detergent. She states that she developed a rash going up both of her legs and that this reached all the way up to the waistline of her pants. She was started on prednisone for this after a visit here, and states that the rash improved only mildly, so she sought care elsewhere. She was then started on hydroxyzine which she had not had before. She states that she has a history of allergy to a number of antihistamines, and did not realize that hydroxyzine was also an antihistamine. She began taking this and while her rash mostly went away, she states she started to notice strange episodes of dizziness, shortness of breath, and anxiety. The patient took 2 doses of hydroxyzine yesterday and has not had any today. She is just finishing the prednisone taper, as well. The patient had labs done yesterday, and was called at home and told she needed to come in here because her white blood cells were elevated and "she must have a really bad infection". The patient denies fevers. She has had a little dysuria. No upper respiratory symptoms. She states she "has not felt well" for the last 3 months, which she clarifies as mainly feeling tired. She has not had any weight loss. She states nothing else is changed. Patient does not have a primary care physician. The patient states that currently, she feels like she cannot lift herself up against gravity, although she did ambulate into the emergency department. She denies any chest pain or abdominal pain. No nausea or vomiting. Patient has not been ill with anything else and denies fevers or chills. Review of Systems Ten Systems: 10 systems reviewed and negative Constitutional: reports: Fatigue Eyes: reports: Reviewed and negative Ears: reports: Reviewed and negative Nose: reports: Reviewed and negative Throat: reports: Reviewed and negative Cardiac: reports: Reviewed and negative Respiratory: reports: Reviewed and negative GI: reports: Reviewed and negative : reports: Reviewed and negative Skin: reports: Reviewed and negative Musculoskeletal: reports: Reviewed and negative Neurologic: reports: Reviewed and negative Psychiatric: reports: Reviewed and negative Endocrine: reports: Reviewed and negative Immunocompromised: reports: Reviewed and negative PD PAST MEDICAL HISTORY - Past Medical History Cardiovascular: None Respiratory: Asthma Endocrine/Autoimmune: None GI: GERD, Ulcers : None HEENT: Other Psych: Anxiety, Panic attacks, Claustrophobia Musculoskeletal: None Derm: None - Past Surgical History Past Surgical History: Yes General: Cholecystectomy 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: 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, Tubal ligation, Breast implants Derm: Other - Present Medications Home Medications: Ambulatory Orders Medication Instructions Recorded Confirmed Hydrocodone/Acetaminophen 1 - 2 each PO Q6H PRN #10 tablet 04/03/19 [Hydrocodon-Acetaminophen 5-325] Ibuprofen [Motrin] 800 mg PO Q8H PRN #30 tablet 04/03/19 Prochlorperazine [Compazine] 5 mg PO Q6H PRN #10 tablet 04/03/19 predniSONE [Deltasone] 10 mg PO [id number] #42 tab 06/19/21 Potassium Chloride [K-Dur] 20 meq PO BIDWM #8 tablet 06/25/21 - Allergies Allergies/Adverse Reactions: Allergies Allergy/AdvReac Type Severity Reaction Status Date / Time Antihistamines - Alkylamine Allergy Confusion, Verified 06/25/21 10:37 dizziness, nausea doxycycline Allergy Hives Verified 06/25/21 10:37 hydromorphone [From Dilaudid] Allergy Anxiety, Verified 06/25/21 10:37 Agitation - Social History Does the pt smoke?: No Smoking Status: Never smoker Does the pt drink ETOH?: No Does the pt have substance abuse?: No - Immunizations Immunizations are current?: Yes - POLST Patient has POLST: No PD ED PE NORMAL - Vitals Vital signs reviewed: Yes - General General: Alert and oriented X 3, No acute distress, Well developed/nourished, Other (The patient is in no distress, but sits up in the chair with her head leaned back and eyes closed. 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, No motor deficit, No sensory deficit, Normal speech - Psych Psych: Other (The patient intermittently has somewhat of a flat affect, Intermingled with periods of appearing very anxious.) Results - Vitals Vitals: Vital Signs - 24 hr 06/25/21 06/25/21 06/25/21 10:37 11:14 11:30 Temperature 36.8 C Heart Rate 115 H 86 81 Respiratory 24 18 21 Rate Blood Pressure 161/80 H 147/91 H 139/78 H O2 Saturation 99 99 100 06/25/21 06/25/21 06/25/21 12:00 12:30 13:00 Temperature Heart Rate 87 85 79 Respiratory 19 11 L 16 Rate Blood Pressure 151/88 H 145/94 H 139/90 H O2 Saturation 100 100 100 06/25/21 06/25/21 13:30 14:00 Temperature Heart Rate 73 67 Respiratory 17 16 Rate Blood Pressure 138/88 H 138/88 H O2 Saturation 100 99 Oxygen O2 Source Room air - Labs Labs: Laboratory Tests 06/25/21 06/25/21 06/25/21 11:11 11:11 11:11 WBC 14.5 H RBC 4.07 L Hgb 12.7 Hct 37.7 MCV 92.6 MCH 31.2 H MCHC 33.7 RDW 14.2 Plt Count 346 MPV 9.8 Neut # (Auto) 9.4 H Lymph # (Auto) 2.8 [place] # (Auto) 0.7 Eos # (Auto) 1.3 H Baso # (Auto) 0.1 Absolute Nucleated RBC 0.00 Nucleated RBC % 0.0 Manual Slide Review Indicated RBC Morph Micro Appear 1+ ANISOCYTOSIS Sodium 137 Potassium 3.3 L Chloride 102 Carbon Dioxide 23 Anion Gap 12.0 BUN 18 Creatinine 1.0 Estimated GFR (MDRD) 60 L Glucose 131 H Calcium 8.6 Total Bilirubin 0.9 AST 23 ALT 36 Alkaline Phosphatase 46 Total Protein 6.9 Albumin 3.9 Globulin 3.0 Albumin/Globulin Ratio 1.3 Lipase 37 TSH 4.95 Urine Opiates Screen Ur Oxycodone Screen Urine Methadone Screen Ur Propoxyphene Screen Ur Barbiturates Screen Ur Tricyclics Screen Ur Phencyclidine Scrn Ur Amphetamine Screen U Methamphetamines Scrn U Benzodiazepines Scrn Urine Cocaine Screen U Cannabinoids Screen 06/25/21 13:24 WBC RBC Hgb Hct MCV MCH MCHC RDW Plt Count MPV Neut # (Auto) Lymph # (Auto) [place] # (Auto) Eos # (Auto) Baso # (Auto) Absolute Nucleated RBC Nucleated RBC % Manual Slide Review RBC Morph Micro Appear Sodium Potassium Chloride Carbon Dioxide Anion Gap BUN Creatinine Estimated GFR (MDRD) Glucose Calcium Total Bilirubin AST ALT Alkaline Phosphatase Total Protein Albumin Globulin Albumin/Globulin Ratio Lipase TSH Urine Opiates Screen NEGATIVE Ur Oxycodone Screen NEGATIVE Urine Methadone Screen NEGATIVE Ur Propoxyphene Screen NEGATIVE Ur Barbiturates Screen NEGATIVE Ur Tricyclics Screen NEGATIVE Ur Phencyclidine Scrn NEGATIVE Ur Amphetamine Screen NEGATIVE U Methamphetamines Scrn NEGATIVE U Benzodiazepines Scrn NEGATIVE Urine Cocaine Screen NEGATIVE U Cannabinoids Screen NEGATIVE PD MEDICAL DECISION MAKING - ED course Complexity details: reviewed old records, reviewed results, re-evaluated patient, considered differential, d/w patient ED course: The patient's vital signs were normal and she was afebrile in the emergency department. Other than some mild dysuria for the last couple of days, she had not had any signs or symptoms of that would indicate infection. I discussed with her that her recent course of prednisone could certainly elevate her white blood cell count and that would be my suspicion. However, I did state to the patient that we would repeat her blood work and that if she can give us a urine sample, we would see if she had a urinary tract infection. The patient did not have any further sign of an allergic reaction. She did have somewhat of an odd affect in the emergency department with the persistently keeping her eyes closed, and the flat, monotone answers. The patient remained fairly calm throughout most of her stay in the emergency department, with the exception of a couple of episodes of what appeared to be a panic attack. Patient with suddenly began breathing very hard, with resultant rise in heart rate into the 120s. These episodes would last for approximately 1 to 2 minutes and then patient would calm again. She denied chest pain these times. Her heart rate seemed to be sinus tachycardia. 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 The patient stated that she had been having these episodes since starting the hydroxyzine. Her TSH was normal. White blood cell count was moderately elevated at 14.3, but urinalysis was negative. Drug screen was also negative. The patient had already been on prednisone and seemed to have issues with any antihistamine. I discussed with her that this point, she no longer has a rash, and I do not think we should start any further medication. She may benefit from an anxiolytic, but at this point in time, given that she seems to have a sensitivity to medications And there is question of some ongoing negative effect after the hydroxyzine, for this reason also I did not feel it was adventitious to start further medication. I have advised the patient that it is very important that she gets established in primary care and follows up., Especially for the ongoing months of "not feeling right". Work-up in the emergency department has been unremarkable and patient is stable for discharge. Departure - Departure Disposition: 01 Home, Self Care Clinical Impression: Generalized weakness Medication reaction Qualifiers: Encounter type: initial encounter Qualified Code(s): T50.905A - Adverse effect of unspecified drugs, medicaments and biological substances, initial encounter Condition: Stable Instructions: ED Drug React Adverse Other Prescriptions: Potassium Chloride [K-Dur] 20 meq PO BIDWM #8 tablet Comments: Your labs, overall, look good. You have a mildly elevated white blood cell count which is most likely the results of your recent course of steroids. You also have a slightly decreased potassium. A low potassium can make a person feel weak, though yours is not likely to be low enough to be causing your ongoing symptoms for the past few months. However, a potassium supplement has been prescribed for you if you wish to take it, once your medication reaction dies down. At this point, there is no reason to take further steroids or antihistamines. You will have to rest at home and let your body bounce back from the adverse reaction you have had. There is no evidence of infection at this point in time. Please follow-up to your primary care physician for further concerns. Discharge Date/Time: 06/25/21 14:12
[2021-06-25 13:33] VITALS: BP 138/88
[2021-06-25 13:35] LABS: MUDS CUTOFF CONCENTRATIONS CUTOFF CONC BELOW:
[2021-06-25 13:49] LABS: AMPHETAMINE SCREEN,URINE NEGATIVE (NEGATIVE); BARBITURATE SCREEN,UR NEGATIVE (NEGATIVE); BENZODIAZEPINES SCREEN, URINE NEGATIVE (NEGATIVE); COCAINE SCREEN URINE NEGATIVE (NEGATIVE); METHADONE SCREEN, URINE NEGATIVE (NEGATIVE); METHAMPHETAMINES SCREEN, URINE NEGATIVE (NEGATIVE); OPIATE SCREEN, URINE NEGATIVE (NEGATIVE); OXYCODONE SCREEN, URINE NEGATIVE (NEGATIVE); PROPOXYPHENE SCREEN, URINE NEGATIVE (NEGATIVE); THC CANNABINOID SCREEN, URINE NEGATIVE (NEGATIVE); TRICYCLIC ANTIDEPRESSANT,URINE NEGATIVE (NEGATIVE)
== END 2021-06-25 14:12 | disposition home or self-care (01) ==
LOC: ED 10:34
DX: R21 Rash and other nonspecific skin eruption (principal); R53.1 Weakness; T50.905A Adverse effect of unspecified drugs, medicaments and biological substances, initial encounter
CPT/HCPCS: 36415; 80053; 80306; 83690; 84443; 85025; 93005; 96360; 99283